=== PATIENT | male | born 1940 | race Caucasian/White ===

== ENCOUNTER → 2017-11-01 09:29 | Outpatient (CLI) | payer MEDICARE, OTHER, SELFPAY ==
[2017-11-01 11:50] LABS: Alanine Aminotransferase 50 U/L (12-78); Albumin Level 3.8 gm/dL (3.4-5.0); Albumin/Globulin Ratio 1.5 (1.1-1.8); Alkaline Phosphatase 69 U/L (46-116); Anion Gap 15.3 mEq/L (5-15); Aspartate Amino Transferase 40 U/L (15-37); Bilirubin,Total 0.8 mg/dL (0.2-1.0); Blood Urea Nitrogen 15 mg/dL (7-18); Calcium 9.1 mg/dL (8.5-10.1); Carbon Dioxide 25 mmol/L (21.0-32.0); Chloride 105 mmol/L (98-107); Cholesterol 192 mg/dL (140-200); Creatine Kinase 108 U/L (39-308); Creatinine,Serum 1.18 mg/dL (0.70-1.30); Estimated Glomerular Filt Rate 60 ml/min (>60); GFR (African American) 72 ML/MIN (>60); Globulin 2.6 gm/dl (1.3-3.2); Glucose 123 mg/dL (74-106); HDL Cholesterol 12 mg/dL (27-67); LDL Cholesterol 115 mg/dL (0-130); Potassium 4.3 mmoL/L (3.5-5.1); Prostate Specific Ag Screen 0.7 ng/mL (0.0-4.0); Sodium 141 mmol/L (136-145); Total Protein,Serum 6.4 gm/dL (6.4-8.2); Triglycerides 324 mg/dL (30-200); VLDL Cholesterol 65 mg/dL (0-40)
[2017-11-03 08:24] LABS: Vitamin D 25 Hydroxy 9.7 ng/mL (30.0-100.0)
== END ==
PROVIDERS: Visit Provider Family Medicine
DX: R53.83 Other fatigue (principal); I10 Essential (primary) hypertension; E78.5 Hyperlipidemia, unspecified; Z12.5 Encounter for screening for malignant neoplasm of prostate
CPT/HCPCS: 36415; 80053; 80061; 82550; 82652; 84443; G0103

== ENCOUNTER → 2018-07-04 11:24 | Outpatient (CLI) | payer MEDICARE, BC, SELFPAY ==
--- NOTE | 2018-07-04 11:37 | XR_ITS ---
XR chest 2V HISTORY: ITS.REASON: cough ORDERING PHYSICIAN: Jayce Ziegler MD PATIENT AGE: 78 years COMPARISON: PA and lateral chest 07/16/2013 FINDINGS: The cardiomediastinal silhouette and pulmonary vascularity are within normal limits. The lungs are clear without infiltrates, suspicious nodules, or pleural effusions considering a somewhat poor inspiration. No acute bony abnormalities. There are mild degenerative changes in both shoulders. Postsurgical screws are seen in both humeral heads. IMPRESSION: Nonacute chest findings
== END ==
PROVIDERS: PCP Family Medicine; Visit Provider Family Medicine
DX: R05 Cough (principal)
CPT/HCPCS: 71046

== ENCOUNTER → 2018-09-22 11:08 | Outpatient (POV) | payer MEDICARE, BC, SELFPAY ==
[2018-09-22 11:21] VITALS: BP 182/98; PULSE 70; RESP 18; O2SAT 98; BMI 32.5
--- NOTE | 2018-09-22 13:36 | HMH.PAINSOAP ---
[facility] Pain Management SOAP Note Subjective:: Patient is a pleasant 78-year-old white male who presents today for for follow-up after multiple peripheral nerve blocks. Patient has postherpetic neuralgia. Patient is not getting any relief from peripheral nerve blocks or medications he is tried and failed both Lyrica and gabapentin. Patient is asking what we can do moving forward he rates his pain a 9 out of 10. Patient and I discussed neuro stimulation. I believe it would be the most beneficial for him. Patient is not on any anticoagulation therapy. ROS General: no recent weight change, no fever, no sleep disturbances Respiratory: no cough, no shortness of air, no recurring pulmonary infections Cardiovascular/Peripheral Vascular: No chest pain, No palpitations, no edema, no shortness of breath. Gastrointestinal: no incontinence, normal bowel movements reported Genitourinary: no incontinence Musculoskeletal: Left chest wall pain around the T4-T5 dermatome level Psychiatric: normal mood/ affect, [denies depression], [denies anxiety] Neurological: [denies weakness in extremities], [denies balance issues] Objective:: Physical Exam General: Alert and oriented x3, no acute distress, pleasant and cooperative, [on room air] Lungs: Resps E/U, Symmetrical chest expansion, Eyes: PERRL Musculoskeletal: Flexion and extension of thoracic spine somewhat guarded secondary to pain, deep tendon reflexes normal, strength in upper and lower extremities [5/5], slightly antalgic gait noted, extreme tenderness left chest wall Neurological: speech clear, computer animator equal, no gross sensory deficits Assessment:: Postherpetic neuralgia Plan:: Will schedule him for a trial with a [place] neurostimulator to help with his postherpetic neuralgia pain. I believe it would be beneficial for him. Patient's tried and failed multiple modalities of treatment including peripheral nerve blocks and Lyrica and gabapentin. Patient is suffered with this pain for over 6 months. Patient has had no relief. It is beginning to affect his activities of daily living and functionality. Dr. Esquivel has reviewed this note and agrees with this plan of care. This note was dictated using voice recognition software and may contain errors or omissions
--- NOTE | 2018-09-22 13:41 | P.CONS_ITS ---
[facility] Pain Management SOAP Note Subjective:: Patient is a pleasant 78-year-old white male who presents today for for follow- up after multiple peripheral nerve blocks. Patient has postherpetic neuralgia. Patient is not getting any relief from peripheral nerve blocks or medications he is tried and failed both Lyrica and gabapentin. Patient is asking what we can do moving forward he rates his pain a 9 out of 10. Patient and I discussed neuro stimulation. I believe it would be the most beneficial for him. Patient is not on any anticoagulation therapy. ROS General: no recent weight change, no fever, no sleep disturbances Respiratory: no cough, no shortness of air, no recurring pulmonary infections Cardiovascular/Peripheral Vascular: No chest pain, No palpitations, no edema, no shortness of breath. Gastrointestinal: no incontinence, normal bowel movements reported Genitourinary: no incontinence Musculoskeletal: Left chest wall pain around the T4-T5 dermatome level Psychiatric: normal mood/ affect, [denies depression], [denies anxiety] Neurological: [denies weakness in extremities], [denies balance issues] Objective:: Physical Exam General: Alert and oriented x3, no acute distress, pleasant and cooperative, [on room air] Lungs: Resps E/U, Symmetrical chest expansion, Eyes: PERRL Musculoskeletal: Flexion and extension of thoracic spine somewhat guarded secondary to pain, deep tendon reflexes normal, strength in upper and lower extremities [5/5], slightly antalgic gait noted, extreme tenderness left chest wall Neurological: speech clear, head of marketing equal, no gross sensory deficits Assessment:: Postherpetic neuralgia Plan:: Will schedule him for a trial with a [place] neurostimulator to help with his postherpetic neuralgia pain. I believe it would be beneficial for him. Patient's tried and failed multiple modalities of treatment including peripheral nerve blocks and Lyrica and gabapentin. Patient is suffered with this pain for over 6 months. Patient has had no relief. It is beginning to affect his activities of daily living and functionality. Dr. Esquivel has reviewed this note and agrees with this plan of care. This note was dictated using voice recognition software and may contain errors or omissions
== END ==
PROVIDERS: PCP Family Medicine; Visit Provider Clinical Nurse Specialist Family Health
DX: B02.29 Other postherpetic nervous system involvement (principal)
CPT/HCPCS: 99212

== ENCOUNTER → 2018-12-10 15:30 | Outpatient (CLI) | payer MEDICARE, BC, SELFPAY ==
--- NOTE | 2018-12-10 | XR_ITS ---
XR chest 2V HISTORY: Cough ITS.REASON: A ORDERING PHYSICIAN: Rodney Stratton MD PATIENT AGE: 78 years COMPARISON: 07/04/2018 FINDINGS: Mild cardiomegaly without failure. There is mild prominence of the interstitium. No definite lobar consolidation or collapse is evident. Chronic changes are present in the mid lung on both sides somewhat similar to the previous exam considering the difference in technique. No acute bony findings. IMPRESSION: Chronic interstitial changes, no acute finding
[2018-12-10 17:46] LABS: Hemoglobin A1C 5.5 % (0.0-7.0)
[2018-12-10 17:53] LABS: Alanine Aminotransferase 41 U/L (12-78); Albumin Level 3.7 gm/dL (3.4-5.0); Albumin/Globulin Ratio 1.4 (1.1-1.8); Alkaline Phosphatase 56 U/L (46-116); Anion Gap 12.7 mEq/L (5-15); Aspartate Amino Transferase 36 U/L (15-37); Bilirubin,Total 0.7 mg/dL (0.2-1.0); Blood Urea Nitrogen 13 mg/dL (7-18); Calcium 9.3 mg/dL (8.5-10.1); Carbon Dioxide 26 mmol/L (21.0-32.0); Chloride 104 mmol/L (98-107); Cholesterol 180 mg/dL (140-200); Creatine Kinase 67 U/L (39-308); Creatinine,Serum 1.36 mg/dL (0.70-1.30); Estimated Glomerular Filt Rate 51 ml/min (>60); GFR (African American) 61 ML/MIN (>60); Globulin 2.7 gm/dl (1.3-3.2); Glucose 98 mg/dL (74-106); HDL Cholesterol 12 mg/dL (27-67); LDL Cholesterol 111 mg/dL (0-130); Potassium 4.7 mmoL/L (3.5-5.1); Prostate Specific Ag Screen 0.6 ng/mL (0.0-4.0); Sodium 138 mmol/L (136-145); Thyroid Stimulating Hormone 3.73 uIU/ml (0.358-3.740); Total Protein,Serum 6.4 gm/dL (6.4-8.2); Triglycerides 283 mg/dL (30-200); VLDL Cholesterol 57 mg/dL (0-40)
[2018-12-10 18:40] LABS: Basophils # 0.1 K/mm3 (0-0.2); Basophils % 1.3 % (0.1-2.0); Eosinophils # 0.1 K/mm3 (0.0-0.4); Eosinophils % 2.1 % (0.1-12.0); Hematocrit 46.2 % (42.0-52.0); Hemoglobin 15.3 g/dL (14.1-18.0); Lymphocytes # 1.7 K/mm3 (0.7-4.5); Mean Corpuscular HGB Conc 33.2 g/dL (31.8-35.4); Mean Corpuscular Hemoglobin 29.6 pg (27.0-31.2); Mean Platelet Volume 8.6 fl (7.4-10.4); Monocytes # 0.5 K/mm3 (0.1-1.0); Monocytes % 7.7 % (1.7-9.3); Neutrophils # 3.5 K/mm3 (1.8-7.8); Neutrophils % 59.8 % (37.0-80.0); Platelet Count 224 K/mm3 (142-424); Red Blood Count 5.19 M/mm3 (4.60-6.20); Red Cell Distribution Width 12.7 % (11.5-17.5); White Blood Count 5.8 K/mm3 (4.8-10.8)
[2018-12-12 18:12] LABS: Folate 4.6 ng/mL (>3.0); Vitamin B12 >2000 pg/mL (232-1245)
[2018-12-12 18:13] LABS: Vitamin D 25 Hydroxy 34.8 ng/mL (30.0-100.0)
== END ==
PROVIDERS: Visit Provider Family Medicine
DX: R53.83 Other fatigue (principal); E78.5 Hyperlipidemia, unspecified; E55.9 Vitamin D deficiency, unspecified; I10 Essential (primary) hypertension; Z13.1 Encounter for screening for diabetes mellitus; Z12.5 Encounter for screening for malignant neoplasm of prostate; Z79.899 Other long term (current) drug therapy
CPT/HCPCS: 36415; 71046; 80053; 80061; 82550; 82607; 82652; 82746; 83036; 84443; 85025; G0103

== ENCOUNTER → 2018-12-15 09:52 | Outpatient (POV) | payer MEDICARE, BC, SELFPAY ==
[2018-12-15 09:57] VITALS: BP 141/80; PULSE 65; RESP 18; O2SAT 98; BMI 32.3
--- NOTE | 2018-12-15 10:12 | HMH.PAINSOAP ---
[facility] Pain Management SOAP Note Subjective:: Patient is a pleasant 78-year-old white male who presents today for follow-up. The patient is being treated for postherpetic neuralgia. The patient has had multiple peripheral nerve blocks with limited relief. As a result, the patient had a [place] neurostimulator placement. Patient rates his pain a 5 out of 10 today. He says he does feel better, but is still having some pain around his left flank area. Overall, however, he says this is helped my pain a lot . Review of Systems General: No recent weight changes, no fever, no sleep disturbances Respiratory: No cough, no shortness of air, no recurring pulmonary infections Cardiovascular/peripheral vascular: No chest pain, no palpitations, no edema, no shortness of breath Gastrointestinal: No new onset incontinence, normal bowel movements reported Genitourinary: No new onset incontinence Musculoskeletal: Left flank pain Psychiatric: Normal mood/affect Neurological: [Denies weakness in extremities], [denies balance issues] Objective:: Physical exam General: Alert and oriented x3, no acute distress, pleasant and cooperative, [on room air] Lungs: Respirations even and unlabored, symmetrical chest expansion Eyes: PERRL Musculoskeletal: Left flank area somewhat guarded secondary to pain, deep tendon reflexes normal, strength in upper and lower extremities [5/5], [abnormal gait noted] Neurological: Speech clear, aircraft pneudraulic systems mechanic equal, no gross sensory deficit Assessment:: Postherpetic neuralgia Plan:: Overall, the patient is doing well today. [employer] order entry representative is here to reprogram the stimulator for him today. Incision is well approximated without infection. We will remove the sutures in 2 weeks. The patient has been instructed to call the office if he has any concerns prior to his next appointment. Dr. Esquivel has reviewed this note and agrees with this plan of care. This note was dictated using voice recognition software and make contain errors or omissions.
--- NOTE | 2018-12-15 10:16 | P.CONS_ITS ---
[facility] Pain Management SOAP Note Subjective:: Patient is a pleasant 78-year-old white male who presents today for follow-up. The patient is being treated for postherpetic neuralgia. The patient has had multiple peripheral nerve blocks with limited relief. As a result, the patient had a [place] neurostimulator placement. Patient rates his pain a 5 out of 10 today. He says he does feel better, but is still having some pain around his left flank area. Overall, however, he says this is helped my pain a lot . Review of Systems General: No recent weight changes, no fever, no sleep disturbances Respiratory: No cough, no shortness of air, no recurring pulmonary infections Cardiovascular/peripheral vascular: No chest pain, no palpitations, no edema, no shortness of breath Gastrointestinal: No new onset incontinence, normal bowel movements reported Genitourinary: No new onset incontinence Musculoskeletal: Left flank pain Psychiatric: Normal mood/affect Neurological: [Denies weakness in extremities], [denies balance issues] Objective:: Physical exam General: Alert and oriented x3, no acute distress, pleasant and cooperative, [on room air] Lungs: Respirations even and unlabored, symmetrical chest expansion Eyes: PERRL Musculoskeletal: Left flank area somewhat guarded secondary to pain, deep tendon reflexes normal, strength in upper and lower extremities [5/5], [abnormal gait noted] Neurological: Speech clear, director of enterprise architecture equal, no gross sensory deficit Assessment:: Postherpetic neuralgia Plan:: Overall, the patient is doing well today. [employer] cash applications representative is here to reprogram the stimulator for him today. Incision is well approximated without infection. We will remove the sutures in 2 weeks. The patient has been instructed to call the office if he has any concerns prior to his next appointment. Dr. Esquivel has reviewed this note and agrees with this plan of care. This note was dictated using voice recognition software and make contain errors or omissions.
== END ==
PROVIDERS: PCP Family Medicine; Visit Provider Clinical Nurse Specialist Family Health
DX: B02.29 Other postherpetic nervous system involvement (principal)
CPT/HCPCS: 99212

== ENCOUNTER → 2019-01-08 10:52 | Outpatient (POV) | payer MEDICARE, BC, SELFPAY ==
[2019-01-08 10:20] VITALS: BP 145/62; PULSE 96; RESP 20; O2SAT 97; BMI 30.7
--- NOTE | 2019-01-08 11:46 | HMH.PAINSOAP ---
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 He did go to the emergency room yesterday with loss of appetite, nausea and increasing pain in the lower lumbar area. He had a white count of 5 his chest x-ray was normal and his urine showed no signs of infection. He overall is doing well and most likely the nausea and loss of appetite is from postop antibiotics which he is currently taking. He is taking Bactrim DS 1 tablet twice a day. He is also taking these on an empty stomach. His pain in his lower lumbar area is somewhat better today. I believe this is just postoperative pain from surgical incisions. His wound VAC is in place. There is no signs of fluctuance or swelling or infection. There is also no signs of redness. His incisions are healing very nicely. His stimulation is helping tremendously. I believe he is doing much better. We will follow-up with him on Friday. Objective:: Alert and oriented x3 no acute distress. Incisions are healing very nicely there is no signs of redness or infection. Patient does have an antalgic gait. Motor strength of lower extremities is 5/5. There is no gross sensory deficit. He does have global weakness which is most likely due to his age and previous surgery. 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 Plan:: I told him to discontinue his Bactrim for postop antibiotics he has had 3 days of postop antibiotics which is sufficient. His incisions are healing very nicely. We will follow-up with him on Friday we will take the wound vacs off and reevaluate. If he has any problems or questions he is to call us in the pain clinic. Pain Management Hx Components *Have you ever received a pneumonia vaccine?: Yes *Have you received a flu vaccine this season?: No - *Social History *Occupational Status:: retired *Travel in the last 8 weeks: None
== END ==
PROVIDERS: PCP Family Medicine; Visit Provider Anesthesiology
DX: B02.29 Other postherpetic nervous system involvement; Z45.49 Encounter for adjustment and management of other implanted nervous system device
CPT/HCPCS: 99212

== ENCOUNTER → 2019-01-12 09:26 | Outpatient (POV) | payer MEDICARE, BC, SELFPAY ==
[2019-01-12 09:41] VITALS: BP 154/77; PULSE 80; RESP 18; O2SAT 99; BMI 30.6
--- NOTE | 2019-01-12 09:52 | HMH.PAINSOAP ---
[facility] Pain Management SOAP Note Subjective:: Patient is a pleasant 78-year-old white male who presents today for follow-up after neurostimulator placement. Patient overall doing extremely well. He rates his pain 8 out of 10 however it is mostly incisional pain he states that his postherpetic polyneuropathy has decreased significantly. Patient's stitches are in place he will comfort in 2 weeks to have been removed. No sign symptoms of infection. ROS General: no recent weight change, no fever, no sleep disturbances Respiratory: no cough, no shortness of air, no recurring pulmonary infections Cardiovascular/Peripheral Vascular: No chest pain, No palpitations, no edema, no shortness of breath. Gastrointestinal: no incontinence, normal bowel movements reported Genitourinary: no incontinence Musculoskeletal: Postherpetic neuralgia T4-T5 dermatomal level Psychiatric: normal mood/ affect Neurological: [denies weakness in extremities], [denies balance issues] Objective:: Physical Exam General: Alert and oriented x3, no acute distress, pleasant and cooperative, [on room air] Lungs: Resps E/U, Symmetrical chest expansion, Eyes: PERRL Musculoskeletal: Flexion and extension of thoracic spine somewhat guarded secondary to pain, deep tendon reflexes normal, strength in upper and lower extremities [5/5], normal gait noted Neurological: speech clear, forestry hunter equal, no gross sensory deficits Assessment:: 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 Overall patient is doing extremely well. He is been instructed to call the office if he has any issues prior to his next appointment. Dr. Esquivel has reviewed this note and agrees with this plan of care. This note was dictated using voice recognition software and may contain errors or omissions Pain Management Hx Components *Have you ever received a pneumonia vaccine?: Yes *Have you received a flu vaccine this season?: Yes - *Social History *Occupational Status:: other *Travel in the last 8 weeks: None
--- NOTE | 2019-01-12 09:55 | P.CONS_ITS ---
[facility] Pain Management SOAP Note Subjective:: Patient is a pleasant 78-year-old white male who presents today for follow-up after neurostimulator placement. Patient overall doing extremely well. He rates his pain 8 out of 10 however it is mostly incisional pain he states that his postherpetic polyneuropathy has decreased significantly. Patient's stitches are in place he will comfort in 2 weeks to have been removed. No sign symptoms of infection. ROS General: no recent weight change, no fever, no sleep disturbances Respiratory: no cough, no shortness of air, no recurring pulmonary infections Cardiovascular/Peripheral Vascular: No chest pain, No palpitations, no edema, no shortness of breath. Gastrointestinal: no incontinence, normal bowel movements reported Genitourinary: no incontinence Musculoskeletal: Postherpetic neuralgia T4-T5 dermatomal level Psychiatric: normal mood/ affect Neurological: [denies weakness in extremities], [denies balance issues] Objective:: Physical Exam General: Alert and oriented x3, no acute distress, pleasant and cooperative, [on room air] Lungs: Resps E/U, Symmetrical chest expansion, Eyes: PERRL Musculoskeletal: Flexion and extension of thoracic spine somewhat guarded secondary to pain, deep tendon reflexes normal, strength in upper and lower extremities [5/5], normal gait noted Neurological: speech clear, swimming pool attendant equal, no gross sensory deficits Assessment:: 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 Overall patient is doing extremely well. He is been instructed to call the office if he has any issues prior to his next appointment. Dr. Esquivel has reviewed this note and agrees with this plan of care. This note was dictated using voice recognition software and may contain errors or omissions Pain Management Hx Components *Have you ever received a pneumonia vaccine?: Yes *Have you received a flu vaccine this season?: Yes - *Social History *Occupational Status:: other *Travel in the last 8 weeks: None
== END ==
PROVIDERS: PCP Family Medicine; Visit Provider Clinical Nurse Specialist Family Health
DX: G58.8 Other specified mononeuropathies (principal); B02.23 Postherpetic polyneuropathy
CPT/HCPCS: 99212

== ENCOUNTER → 2019-01-26 08:34 | Outpatient (POV) | payer MEDICARE, BC, SELFPAY ==
[2019-01-26 09:04] VITALS: BP 156/87; PULSE 61; RESP 18; O2SAT 98; BMI 30.7
--- NOTE | 2019-01-26 09:12 | HMH.PAINSOAP ---
[facility] Pain Management SOAP Note Subjective:: Is a pleasant 78-year-old white male who presents today for follow-up and stitch removal after neurostimulator was placed for postherpetic neuralgia. He rates his pain today a 4 out of 10. He states it is much improved however he still having quite a bit of issue wearing a T-shirt. Patient overall is happy with his progress. Patient stitches were removed the incision was well approximated no sign symptoms of infection. Patient overall doing well. ROS General: no recent weight change, no fever, no sleep disturbances Respiratory: no cough, no shortness of air, no recurring pulmonary infections Cardiovascular/Peripheral Vascular: No chest pain, No palpitations, no edema, no shortness of breath. Gastrointestinal: no incontinence, normal bowel movements reported Genitourinary: no incontinence Musculoskeletal: Postherpetic neuralgia T4-T5 dermatomal level Psychiatric: normal mood/ affect, [denies depression], [denies anxiety] Neurological: [denies weakness in extremities], [denies balance issues] Objective:: Physical Exam General: Alert and oriented x3, no acute distress, pleasant and cooperative, [on room air] Lungs: Resps E/U, Symmetrical chest expansion, Eyes: PERRL Musculoskeletal: Flexion and extension of thoracic spine somewhat guarded secondary to pain, deep tendon reflexes normal, strength in upper and lower extremities [5/5], [abnormal gait noted] Neurological: speech clear, risk consulting treasury director equal, no gross sensory deficits Assessment:: 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 A national sales representative for [employer] will be contacted and he will have some reprogramming prior to his next appointment. Dr. Esquivel has reviewed this note and agrees with this plan of care. This note was dictated using voice recognition software and may contain errors or omissions Pain Management Hx Components *Have you ever received a pneumonia vaccine?: Yes *Have you received a flu vaccine this season?: Yes - *Social History *Occupational Status:: other *Travel in the last 8 weeks: None
--- NOTE | 2019-01-26 09:15 | P.CONS_ITS ---
[facility] Pain Management SOAP Note Subjective:: Is a pleasant 78-year-old white male who presents today for follow-up and stitch removal after neurostimulator was placed for postherpetic neuralgia. He rates his pain today a 4 out of 10. He states it is much improved however he still having quite a bit of issue wearing a T-shirt. Patient overall is happy with his progress. Patient stitches were removed the incision was well approximated no sign symptoms of infection. Patient overall doing well. ROS General: no recent weight change, no fever, no sleep disturbances Respiratory: no cough, no shortness of air, no recurring pulmonary infections Cardiovascular/Peripheral Vascular: No chest pain, No palpitations, no edema, no shortness of breath. Gastrointestinal: no incontinence, normal bowel movements reported Genitourinary: no incontinence Musculoskeletal: Postherpetic neuralgia T4-T5 dermatomal level Psychiatric: normal mood/ affect, [denies depression], [denies anxiety] Neurological: [denies weakness in extremities], [denies balance issues] Objective:: Physical Exam General: Alert and oriented x3, no acute distress, pleasant and cooperative, [on room air] Lungs: Resps E/U, Symmetrical chest expansion, Eyes: PERRL Musculoskeletal: Flexion and extension of thoracic spine somewhat guarded secondary to pain, deep tendon reflexes normal, strength in upper and lower extremities [5/5], [abnormal gait noted] Neurological: speech clear, wind commissioning technician equal, no gross sensory deficits Assessment:: 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 A product support sales representative for [employer] will be contacted and he will have some reprogramming prior to his next appointment. Dr. Esquivel has reviewed this note and agrees with this plan of care. This note was dictated using voice recognition software and may contain errors or omissions Pain Management Hx Components *Have you ever received a pneumonia vaccine?: Yes *Have you received a flu vaccine this season?: Yes - *Social History *Occupational Status:: other *Travel in the last 8 weeks: None
== END ==
PROVIDERS: PCP Family Medicine; Visit Provider Clinical Nurse Specialist Family Health
DX: B02.23 Postherpetic polyneuropathy
CPT/HCPCS: 99212; 99213

== ENCOUNTER → 2019-03-29 09:06 | Outpatient (POV) | payer MEDICARE, BC, SELFPAY ==
[2019-03-29 09:27] VITALS: BP 150/84; PULSE 64; RESP 18; O2SAT 98; BMI 30.6
--- NOTE | 2019-03-29 09:28 | HMH.PAINSOAP ---
[facility] Pain Management SOAP Note Subjective:: Patient is an extremely pleasant 79-year-old white male who presents today for follow-up. Patient has a neurostimulator for shingles pain. Patient states he is doing really well at 20 however he continue to increase it stating that he can go up to 35. I discussed with him overstimulation. We will decrease him to 15 for 2 days have him increase 1 level until he is comfortable again and I will see him in 1 week. He still having some soreness around his generator site. We will give him some diclofenac cream to see if this is beneficial for him we will reassess this in 1 week. He rates his pain today a 7 out of 10 ROS General: no recent weight change, no fever, no sleep disturbances Respiratory: no cough, no shortness of air, no recurring pulmonary infections Cardiovascular/Peripheral Vascular: No chest pain, No palpitations, no edema, no shortness of breath. Gastrointestinal: no new onset incontinence, normal bowel movements reported Genitourinary: no new onset incontinence Musculoskeletal: Postherpetic neuralgia T4-T5 dermatomal level Psychiatric: normal mood/ affect, Neurological: [denies new onset weakness in extremities], [denies new onset balance issues] Objective:: Physical Exam General: Alert and oriented x3, no acute distress, pleasant and cooperative, [on room air] Lungs: Resps E/U, Symmetrical chest expansion, Eyes: PERRL Musculoskeletal: Flexion and extension of thoracic spine somewhat guarded secondary to pain, deep tendon reflexes normal, strength in upper and lower extremities [5/5], antalgic gait noted Neurological: speech clear, sheet metal insulator 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 We will also give him some diclofenac cream for the site over his stimulator battery we will reassess this at his next visit in 1 week. He is been instructed to call the office if he has any issues prior to his next appointment. Dr. Esquivel has reviewed this note and agrees with this plan of care. This note was dictated using voice recognition software and may contain errors or omissions [facility] History I have reviewed the patient's past medical history: Yes Medical History: Reports:: Hyperlipidemia, Hypertension Denies:: Cancer, Diabetes Mellitus Type 1, Diabetes Mellitus Type 2, Internal Pacemaker, MRSA, Seizures *Have you ever received a pneumonia vaccine?: Yes *Have you received a flu vaccine this season?: Yes Other Medical History: Denies: Blood Transfusion Reaction Laterality Cases: Bilateral: Arthroscopy Shoulder, Other Other Surgeries: Yes: Hernia Repair (x3), Other (bilateral rotator cuff repair). No: Pacemaker Amputation: No Fractures: No - *Social History Smoking Status: Former smoker Tobacco Type: cigarettes # Packs/Day (cigarettes): 1 Alcohol Intake: former Substance Use Type: denies use *Occupational Status:: other Housing: house Household Members: spouse *Travel in the last 8 weeks: None Family Hx:: No significant family history
--- NOTE | 2019-03-29 09:31 | P.CONS_ITS ---
[facility] Pain Management SOAP Note Subjective:: Patient is an extremely pleasant 79-year-old white male who presents today for follow-up. Patient has a neurostimulator for shingles pain. Patient states he is doing really well at 20 however he continue to increase it stating that he can go up to 35. I discussed with him overstimulation. We will decrease him to 15 for 2 days have him increase 1 level until he is comfortable again and I will see him in 1 week. He still having some soreness around his generator site. We will give him some diclofenac cream to see if this is beneficial for him we will reassess this in 1 week. He rates his pain today a 7 out of 10 ROS General: no recent weight change, no fever, no sleep disturbances Respiratory: no cough, no shortness of air, no recurring pulmonary infections Cardiovascular/Peripheral Vascular: No chest pain, No palpitations, no edema, no shortness of breath. Gastrointestinal: no new onset incontinence, normal bowel movements reported Genitourinary: no new onset incontinence Musculoskeletal: Postherpetic neuralgia T4-T5 dermatomal level Psychiatric: normal mood/ affect, Neurological: [denies new onset weakness in extremities], [denies new onset balance issues] Objective:: Physical Exam General: Alert and oriented x3, no acute distress, pleasant and cooperative, [on room air] Lungs: Resps E/U, Symmetrical chest expansion, Eyes: PERRL Musculoskeletal: Flexion and extension of thoracic spine somewhat guarded secondary to pain, deep tendon reflexes normal, strength in upper and lower extremities [5/5], antalgic gait noted Neurological: speech clear, 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 We will also give him some diclofenac cream for the site over his stimulator battery we will reassess this at his next visit in 1 week. He is been instructed to call the office if he has any issues prior to his next appointment. Dr. Esquivel has reviewed this note and agrees with this plan of care. This note was dictated using voice recognition software and may contain errors or omissions [facility] History I have reviewed the patient's past medical history: Yes Medical History: Reports:: Hyperlipidemia, Hypertension Denies:: Cancer, Diabetes Mellitus Type 1, Diabetes Mellitus Type 2, Internal Pacemaker, MRSA, Seizures *Have you ever received a pneumonia vaccine?: Yes *Have you received a flu vaccine this season?: Yes Other Medical History: Denies: Blood Transfusion Reaction Laterality Cases: Bilateral: Arthroscopy Shoulder, Other Other Surgeries: Yes: Hernia Repair (x3), Other (bilateral rotator cuff repair). No: Pacemaker Amputation: No Fractures: No - *Social History Smoking Status: Former smoker Tobacco Type: cigarettes # Packs/Day (cigarettes): 1 Alcohol Intake: former Substance Use Type: denies use *Occupational Status:: other Housing: house Household Members: spouse *Travel in the last 8 weeks: None Family Hx:: No significant family history
== END ==
PROVIDERS: PCP Family Medicine; Visit Provider Clinical Nurse Specialist Family Health
DX: B02.23 Postherpetic polyneuropathy; B02.29 Other postherpetic nervous system involvement
CPT/HCPCS: 99212

== ENCOUNTER → 2019-04-05 12:57 | Outpatient (POV) | payer MEDICARE, BC, SELFPAY ==
[2019-04-05 13:19] VITALS: BP 135/77; PULSE 68; RESP 18; O2SAT 99; BMI 30.6
--- NOTE | 2019-04-05 13:26 | HMH.PAINSOAP ---
[facility] Pain Management SOAP Note Subjective:: Patient is a very pleasant 79-year-old white male who presents today for follow-up. Patient had a neurostimulator placed for postherpetic neuralgia. Patient was overstimulating himself so we decreased him which she states was beneficial. Patient probably needs up reprogramming at this time. Patient also has some pain around the battery site. Patient is using diclofenac cream which is beneficial. He rates his pain a 7 out of 10 today. Mostly on his left chest wall. ROS General: no recent weight change, no fever, no sleep disturbances Respiratory: no cough, no shortness of air, no recurring pulmonary infections Cardiovascular/Peripheral Vascular: No chest pain, No palpitations, no edema, no shortness of breath. Gastrointestinal: no new onset incontinence, normal bowel movements reported Genitourinary: no new onset incontinence Musculoskeletal: Left chest wall pain Psychiatric: normal mood/ affect Neurological: [denies new onset weakness in extremities], [denies new onset balance issues] Objective:: Physical Exam General: Alert and oriented x3, no acute distress, pleasant and cooperative, [on room air] Lungs: Resps E/U, Symmetrical chest expansion, Eyes: PERRL Musculoskeletal: Flexion and extension of thoracic spine somewhat guarded secondary to pain, deep tendon reflexes normal, strength in upper and lower extremities [5/5], antalgic gait noted Neurological: speech clear, 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 Dr. Esquivel has reviewed this note and agrees with this plan of care. This note was dictated using voice recognition software and may contain errors or omissions [facility] History I have reviewed the patient's past medical history: Yes Medical History: Reports:: Hyperlipidemia, Hypertension Denies:: Cancer, Diabetes Mellitus Type 1, Diabetes Mellitus Type 2, Internal Pacemaker, MRSA, Seizures *Have you ever received a pneumonia vaccine?: Yes *Have you received a flu vaccine this season?: Yes Other Medical History: Denies: Blood Transfusion Reaction Laterality Cases: Bilateral: Arthroscopy Shoulder, Other Other Surgeries: Yes: Hernia Repair (x3), Other (bilateral rotator cuff repair). No: Pacemaker Amputation: No Fractures: No - *Social History Smoking Status: Former smoker Tobacco Type: cigarettes # Packs/Day (cigarettes): 1 Alcohol Intake: former Substance Use Type: denies use *Occupational Status:: other Housing: house Household Members: spouse *Travel in the last 8 weeks: None Family Hx:: No significant family history
--- NOTE | 2019-04-05 13:29 | P.CONS_ITS ---
[facility] Pain Management SOAP Note Subjective:: Patient is a very pleasant 79-year-old white male who presents today for follow- up. Patient had a neurostimulator placed for postherpetic neuralgia. Patient was overstimulating himself so we decreased him which she states was beneficial. Patient probably needs up reprogramming at this time. Patient also has some pain around the battery site. Patient is using diclofenac cream which is beneficial. He rates his pain a 7 out of 10 today. Mostly on his left chest wall. ROS General: no recent weight change, no fever, no sleep disturbances Respiratory: no cough, no shortness of air, no recurring pulmonary infections Cardiovascular/Peripheral Vascular: No chest pain, No palpitations, no edema, no shortness of breath. Gastrointestinal: no new onset incontinence, normal bowel movements reported Genitourinary: no new onset incontinence Musculoskeletal: Left chest wall pain Psychiatric: normal mood/ affect Neurological: [denies new onset weakness in extremities], [denies new onset balance issues] Objective:: Physical Exam General: Alert and oriented x3, no acute distress, pleasant and cooperative, [on room air] Lungs: Resps E/U, Symmetrical chest expansion, Eyes: PERRL Musculoskeletal: Flexion and extension of thoracic spine somewhat guarded s econdary to pain, deep tendon reflexes normal, strength in upper and lower extremities [5/5], antalgic gait noted Neurological: speech clear, hat blocker equal, no gross sensory deficits Assessment:: Postherpetic neuralgia T4-T5 dermatomal level Plan:: We will have the patient reprogrammed by [facility] I will follow-up with him 1 month after this and reassess his symptoms at that time he is been instructed to call our office if he has any issues prior to his next appointment. Dr. Esquivel has reviewed this note and agrees with this plan of care. This note was dictated using voice recognition software and may contain errors or omissions [facility] History I have reviewed the patient's past medical history: Yes Medical History: Reports:: Hyperlipidemia, Hypertension Denies:: Cancer, Diabetes Mellitus Type 1, Diabetes Mellitus Type 2, Internal Pacemaker, MRSA, Seizures *Have you ever received a pneumonia vaccine?: Yes *Have you received a flu vaccine this season?: Yes Other Medical History: Denies: Blood Transfusion Reaction Laterality Cases: Bilateral: Arthroscopy Shoulder, Other Other Surgeries: Yes: Hernia Repair (x3), Other (bilateral rotator cuff repair). No: Pacemaker Amputation: No Fractures: No - *Social History Smoking Status: Former smoker Tobacco Type: cigarettes # Packs/Day (cigarettes): 1 Alcohol Intake: former Substance Use Type: denies use *Occupational Status:: other Housing: house Household Members: spouse *Travel in the last 8 weeks: None Family Hx:: No significant family history
== END ==
PROVIDERS: PCP Family Medicine; Visit Provider Clinical Nurse Specialist Family Health
DX: B02.29 Other postherpetic nervous system involvement
CPT/HCPCS: 99212

== ENCOUNTER → 2021-06-13 14:29 | Outpatient (CLI) | payer MEDICARE, BC, SELFPAY ==
[2021-06-13 15:21] LABS: Adenovirus,PCR Not Detected (NotDetected); Bordetella Pertussis Not Detected (NotDetected); Chlamydophila Pneumoniae, PCR Not Detected (NotDetected); Coronavirus 229E Not Detected (NotDetected); Coronavirus NL63 Not Detected (NotDetected); Coronavirus OC43 Not Detected (NotDetected); Coronovirus HKU1,PCR Not Detected (NotDetected); Human Metapneumovirus Not Detected (NotDetected); Influenza A, PCR Not Detected (NotDetected); Influenza AH1, 2009 Not Detected (NotDetected); Influenza AH1, PCR Not Detected (NotDetected); Influenza AH3,PCR Not Detected (NotDetected); Influenza B, PCR Not Detected (NotDetected); Mycoplasma Pneumoniae, PCR Not Detected (NotDetected); Parainfluenza 1, PCR Not Detected (NotDetected); Parainfluenza 2, PCR Not Detected (NotDetected); Parainfluenza 3, PCR Not Detected (NotDetected); Parainfluenza 4, PCR Not Detected (NotDetected); Respiratory Syncytial Virus Not Detected (NotDetected); Rhinovirus/Enterovirus Not Detected (NotDetected)
[2021-06-13 15:28] LABS: Basophils # 0.1 K/mm3 (0-0.2); Basophils % 1.8 % (0.1-2.0); Eosinophils # 0.1 K/mm3 (0.0-0.4); Eosinophils % 1.3 % (0.1-12.0); Hematocrit 50.2 % (42.0-52.0); Hemoglobin 16.5 g/dL (14.1-18.0); Lymphocytes # 1.3 K/mm3 (0.7-4.5); Lymphocytes % 19.7 % (10-50); Mean Corpuscular HGB Conc 32.8 g/dL (31.8-35.4); Mean Corpuscular Hemoglobin 32.2 pg (27.0-31.2); Mean Corpuscular Volume 98.1 fl (80-94); Mean Platelet Volume 8.7 fl (7.4-10.4); Monocytes # 0.6 K/mm3 (0.1-1.0); Monocytes % 8.9 % (1.7-9.3); Neutrophils # 4.4 K/mm3 (1.8-7.8); Neutrophils % 68.3 % (37.0-80.0); Platelet Count 218 K/mm3 (142-424); Red Blood Count 5.12 M/mm3 (4.60-6.20); Red Cell Distribution Width 13.4 % (11.5-17.5); White Blood Count 6.4 K/mm3 (4.8-10.8)
[2021-06-13 15:41] LABS: Strep Scrn Group A (Rapid) Negative (Negative)
[2021-06-13 18:51] LABS: Coronavirus 19, PCR Detected (NotDetected)
== END ==
PROVIDERS: PCP Family Medicine; Visit Provider Physician Assistant
DX: U07.1 COVID-19 (principal)
CPT/HCPCS: 36415; 85025; 87430; 87581; 87632; 87798; C9803; U0003; U0005

== ENCOUNTER → 2022-02-25 12:39 | Outpatient (CLI) | payer MEDICARE, BC, SELFPAY ==
[2022-02-25 14:40] LABS: Alanine Aminotransferase 39 U/L (12-78); Albumin Level 4.6 g/dl (3.5-5.0); Albumin/Globulin Ratio 1.8 (1.1-1.8); Alkaline Phosphatase 59 U/L (38-126); Anion Gap 18.7 mEq/L (5-15); Aspartate Amino Transferase 35 U/L (17-59); Blood Urea Nitrogen 20 mg/dl (9-20); Carbon Dioxide 27 mmol/L (22.0-30.0); Chloride 95 mmol/L (98-107); Chol/HDL Ratio 11.4 (1-3.5); Cholesterol 228 mg/dl (140-200); Estimated Glomerular Filt Rate 58 ml/min (>60); GFR (African American) 70 ML/MIN (>60); Globulin 2.5 g/dL (1.3-3.2); Glucose 113 mg/dl (74-100); HDL Cholesterol 20 mg/dl (40-60); Potassium 4.7 mmoL/L (3.5-5.1); Sodium 136 mmol/L (136-145); Total Protein,Serum 7.1 g/dl (6.3-8.2); Triglycerides 224 mg/dl (30-150); VLDL Cholesterol 45 mg/dL (0-40)
[2022-02-25 14:50] LABS: Direct LDL Cholesterol 194.61 mg/dL (100-129)
[2022-02-25 15:10] LABS: Thyroid Stimulating Hormone 3.01 uIU/mL (0.465-4.68)
== END ==
PROVIDERS: PCP Family Medicine; Visit Provider Family Medicine
DX: E03.9 Hypothyroidism, unspecified (principal); E78.5 Hyperlipidemia, unspecified
CPT/HCPCS: 36415; 80053; 80061; 84443

== ENCOUNTER 2023-01-28 13:50 | Emergency (ER) | payer MEDICARE, BC, SELFPAY ==
[2023-01-28] VITALS (9 sets, daily range): BP systolic 129–165; BP diastolic 59–76; PULSE 66–85; RESP 18–33; TEMP 36.7; O2SAT 93–98; BMI 30.4
--- NOTE | 2023-01-28 13:53 | ECG_ITS ---
APPROVED REPORT Exam: Resting ECG HR:81 bpm ECG Measurements Heart Rate 81 AXES LA 162 P 48 QRSd 94 QRS -25 QT 366 T 46 QTc 404 Conclusion SINUS RHYTHM BORDERLINE LEFT AXIS DEVIATION [QRS AXIS < -20] BORDERLINE ECG UNCONFIRMED REPORT Electronically signed by : Selvin Quinteros MD 01/28/2023 19:54:31
--- NOTE | 2023-01-28 14:42 | PC.NURSE ---
Dr. Cantu at BS
--- NOTE | 2023-01-28 14:45 | XR_ITS ---
FINAL REPORT CLINICAL HISTORY: dyspnea COMPARISON: 01/07/2019 FINDINGS: SINGLE-VIEW CHEST There is cardiomegaly. The mediastinum is normal. There are bibasilar opacities, may represent atelectasis or pneumonia. Spinal stimulator is present. There are postoperative changes in the left shoulder. There is no pneumothorax. IMPRESSION: Bibasilar atelectasis versus pneumonia. Reviewed, Interpreted and Dictated by Raymundo Gaines III, MD Transcribed by Viridiana Freeman Authenticated and [facility]
--- NOTE | 2023-01-28 14:46 | HMH.EDGENADL ---
Discharge Plan Disposition Patient Disposition: Home, Self-Care Condition: Good Prescriptions Prescriptions: No Action rabeprazole [AcipHex] 20 MG Tablet. 20 mg PO DAILY atorvastatin 10 MG Tablet 10 mg PO DAILY hydrocodone-acetaminophen [Needles] 1 EACH Tablet 1 ea PO DAILY PRN (Reason: pain) aspirin [Aspir-81] 81 MG Tablet.Dr 81 mg PO DAILY metoprolol succinate 25 MG Tab.Er.24h 25 mg PO DAILY metoclopramide HCl 10 MG Tablet 20 mg PO DAILY fenofibrate 40 MG Tablet 40 mg PO DAILY pregabalin [Lyrica] 75 MG Capsule 75 mg PO BID Referrals Follow up/Referrals: Rodney Stratton MD [Primary Care Provider] - See instructions Activity Restrictions/Add. Instructions Additional Instructions/Restrictions: follow up with primary doctor. Clinical Impressions Clinical Impression: Chest wall pain, Decrease in appetite, Generalized weakness Instructions Patient Instructions: DI for Atypical Chest Pain, DI for Poor Appetite Discharge ED Provider: Romulo Cantu General Adult HPI <Romulo Cantu MD - Last Filed: 01/28/23 14:49> General Chief complaint: Chest Pain Stated complaint: chest pain Time Seen by Provider: 01/28/23 14:17 Mode of Arrival: Wheelchair Source of Information: Patient and Medical Record Limitations: No Limitations Description of Symptoms (Recalled from ER Triage Doc. by RN): Pt c/o anterior chest pain that is tender to touch for about 4-5 days. States he has been feeling down , dizzy, nausea, and having SOA with exertion. States he fell down yesterday in his home after feeling weak. He fell on his hands & and knees. He denies any LOC or hitting his head from the fall. Denies any anticoaguant use. Denies any significant cardiac hx. History of Present Illness HPI narrative: Patient is an 83-year-old male very hard of hearing and history is limited secondary to that who gave a history of multiple complaints today. Tells me that he has had chest pain for multiple years since he had shingles on his chest wall but that is worsened over the last few days not a new rash. States it hurts to touch. Has been quite weak with some nausea according to family member he recently had a near syncopal episode yesterday where he fell to his knees. He denies any significant abdominal pain fevers or chills or any other symptoms. Related Data Home Medications Medication Instructions Recorded Confirmed aspirin 81 mg tablet,delayed 81 mg PO DAILY heart health 08/21/18 01/06/19 release (Aspir-) atorvastatin 10 mg tablet 10 mg PO DAILY Cholesterol 08/21/18 01/06/19 fenofibrate 40 mg tablet 40 mg PO DAILY Cholesterol 08/21/18 01/06/19 hydrocodone 5 mg-acetaminophen 325 1 ea PO DAILY PRN pain 08/21/18 01/06/19 mg tablet (Needles) metoclopramide HCl 10 mg tablet 20 mg PO DAILY stomach 08/21/18 01/06/19 metoprolol succinate 25 mg 25 mg PO DAILY heart 08/21/18 01/06/19 tablet,extended release 24 hr rabeprazole 20 mg tablet,delayed 20 mg PO DAILY GERD 08/21/18 01/06/19 release (AcipHex) pregabalin 75 mg capsule (Lyrica) 75 mg PO BID post herpatic 08/25/18 01/06/19 neuralgia Allergies Allergy/AdvReac Type Severity Reaction Status Date / Time citric acid Allergy Verified 01/06/19 08:26 [From [facility]] sodium bicarbonate Allergy Verified 01/06/19 08:26 [From [facility]] [facility] <Romulo Cantu MD - Last Filed: 01/28/23 14:49> [facility] Disclaimer: The information contained in this section may have been updated after the patient was seen, as this information can be updated by other users. Social History Smoking Status: Former smoker second hand exposure: No alcohol intake: former substance use type: denies use current occupational status: other Travel in the last 8 weeks: None household members: spouse housing: house current occupational exposures/hazards: No caffeine: Yes <Romulo Cantu MD - Last Filed:
[2023-01-28 14:56] LABS: Basophils % 0.4 % (0.1-2.0); Eosinophils # 0.2 K/mm3 (0.0-0.4); Eosinophils % 1.3 % (0.1-12.0); Hematocrit 48.3 % (42.0-52.0); Lymphocytes # 1.3 K/mm3 (0.7-4.5); Lymphocytes % 11.2 % (10-50); Mean Corpuscular HGB Conc 33.2 g/dL (31.8-35.4); Mean Corpuscular Hemoglobin 29.8 pg (27.0-31.2); Mean Corpuscular Volume 89.9 fl (80-94); Mean Platelet Volume 8.8 fl (7.4-10.4); Monocytes # 0.7 K/mm3 (0.1-1.0); Monocytes % 6.4 % (1.7-9.3); Neutrophils # 9.2 K/mm3 (1.8-7.8); Neutrophils % 80.8 % (37.0-80.0); Platelet Count 331 K/mm3 (142-424); Red Blood Count 5.37 M/mm3 (4.60-6.20); White Blood Count 11.3 K/mm3 (4.8-10.8)
[2023-01-28 15:01] LABS: Chloride 101 mmol/L (98-107)
[2023-01-28 15:02] LABS: Potassium 4.1 mmoL/L (3.5-5.1); Sodium 132 mmol/L (136-145)
[2023-01-28 15:04] LABS: Alanine Aminotransferase 50 U/L (12-78); Albumin Level 3.8 g/dl (3.5-5.0); Albumin/Globulin Ratio 1.2 (1.1-1.8); Alkaline Phosphatase 55 U/L (38-126); Anion Gap 14.1 mEq/L (5-15); Aspartate Amino Transferase 62 U/L (17-59); Bilirubin,Total 2.2 mg/dl (0.2-1.3); Blood Urea Nitrogen 11 mg/dl (9-20); Carbon Dioxide 21 mmol/L (22.0-30.0); Creatinine Clearance Estimated 63 mL/min (50-200); Estimated Glomerular Filt Rate 64 ml/min (>60); GFR (African American) 78 ML/MIN (>60); Globulin 3.1 g/dL (1.3-3.2); Total Protein,Serum 6.9 g/dl (6.3-8.2)
[2023-01-28 15:05] LABS: Calcium 9.9 mg/dl (8.4-10.2); Glucose 205 mg/dl (74-100); Magnesium 1.6 mg/dl (1.6-2.3); Phosphorous 2.7 mg/dl (2.5-4.5)
[2023-01-28 15:10] LABS: D-Dimer 0.96 ug/mL (0.0-0.5)
[2023-01-28 15:14] LABS: NT Pro Brain Natriuretic Pep. 339 pg/mL (0-450)
[2023-01-28 15:23] LABS: Troponin I < 0.01 ng/ml (0.00-0.034)
[2023-01-28 15:35] LABS: Thyroid Stimulating Hormone 1.24 uIU/mL (0.465-4.68)
--- NOTE | 2023-01-28 16:08 | PC.NURSE ---
Dr. Fong at BS
[2023-01-28 16:19] LABS: Microscopic, Urine URINE MICROSCOPIC (MICROSCOPIC)
[2023-01-28 16:33] LABS: Appearance,Urine CLEAR (Clear); Blood, Urine Negative (Negative); Color,Urine DARK YELLOW (Yellow); Glucose,Urine (UA) Negative (Negative); Ketones,Urine Negative (Negative); Leukocyte Esterase,Urine Negative (Negative); Nitrate,Urine Negative (Negative); Protein,Urine TRACE (Negative); Specific Gravity, Urine >= 1.030 (1.005-1.030)
[2023-01-28 16:37] LABS: Bilirubin,Urine 1+ (Negative)
[2023-01-28 16:54] LABS: Squamous Epithelial Cell,Urine Occasional #/hpf (0-5)
--- NOTE | 2023-01-28 17:08 | PC.NURSE ---
Rounded on patient. No needs at this time.
== END 2023-01-28 17:21 | disposition home or self-care (01) ==
PROVIDERS: Emergency Provider Student in an Organized Health Care Education/Training Program; PCP Family Medicine
DX: R07.9 Chest pain, unspecified (principal); R63.0 Anorexia; R53.1 Weakness; R55 Syncope and collapse; Z87.891 Personal history of nicotine dependence; W19.XXXA Unspecified fall, initial encounter
CPT/HCPCS: 71045; 80053; 81001; 83735; 83880; 84100; 84443; 84484; 85025; 85378; 93005; 96374; 99285

== ENCOUNTER 2023-05-16 11:08 | Inpatient (IN) | payer MEDICARE, BC, SELFPAY ==
[2023-05-16] VITALS (13 sets, daily range): BP systolic 134–183; BP diastolic 77–101; PULSE 70–81; RESP 20–21; TEMP 36.5–36.8; O2SAT 96–98; BMI 27.4; BMI 24.5
--- NOTE | 2023-05-16 11:29 | PC.NURSE ---
Dr. Cantu at BS for pt eval
--- NOTE | 2023-05-16 11:36 | CT_ITS ---
FINAL REPORT TECHNIQUE: After the administration of intravenous contrast, axial images were obtained through the abdomen and pelvis by computed tomography. The study was performed with techniques to keep radiation dose as low as reasonably achievable, (ALARA). Individual dose reduction techniques using automated exposure control or adjustment of mA and/or kV according to the patient's size were employed. CLINICAL HISTORY: fall, injury, also post prandial emesis x3wks FINDINGS: Abdomen: A right pleural effusion is present. The liver parenchyma is homogeneous. The gallbladder is absent. The spleen, pancreas, and adrenals appear unremarkable. There are several left renal cysts which have a benign appearance. There is ectasia in the abdominal aorta, which measures up to 3.2 cm in diameter. There is no free fluid or adenopathy. Pelvis: The appendix is not identified. The urinary bladder is unremarkable. There is no free fluid or adenopathy. Moderate diverticulosis of the sigmoid colon is identified. IMPRESSION: No acute intra-abdominal process. Abdominal aortic ectasia, up to 3.2 cm in diameter. Moderate diverticulosis of the sigmoid colon without acute inflammatory change. Reviewed, Interpreted and Dictated by Jerry Trotter MD Transcribed by Jie Gordon Authenticated and [facility]
--- NOTE | 2023-05-16 11:36 | CT_ITS ---
FINAL REPORT TECHNIQUE: Routine axial images were obtained from the lung apices to below the diaphragm following IV contrast administration. Individualized dose reduction techniques using automated exposure control or adjustment of the mA and/or kV according to the patient size were employed. CLINICAL HISTORY: fall,injury COMPARISON: None FINDINGS: CT CHEST WITH CONTRAST: There is a moderate-sized right pleural effusion. A few small scattered nonspecific mediastinal nodes are identified. There is mild fibrosis in the peripheries of the lungs bilaterally. There is streak artifact from a spinal stimulator. There is high density in a partially collapsed right lower lobe, that may be from remote prior lung disease or aspiration of contrast. IMPRESSION: Moderate sized right pleural effusion. High density in a partially collapsed right lower lobe, that may be from remote prior lung disease or aspiration of contrast. Reviewed, Interpreted and Dictated by Jerry Trotter MD Transcribed by Jie Gordon Authenticated and [facility]
--- NOTE | 2023-05-16 11:36 | CT_ITS ---
FINAL REPORT TECHNIQUE: multiple axial CT images were performed from the foramen magnum to the vertex without enhancement. CLINICAL HISTORY: fall; pain COMPARISON: None FINDINGS: The ventricles are enlarged. There is moderate diffuse atrophy. There is moderate periventricular white matter change likely related to small vessel disease. There is no evidence of hemorrhage. No masses are identified. No extra-axial fluid is seen. There is extensive mucoperiosteal thickening in the right maxillary, sphenoid, and ethmoid air cells. There is a large air-fluid level in the left maxillary sinus. There is obstruction in the ostiomeatal units bilaterally. IMPRESSION: Moderate atrophy and chronic changes. Extensive mucoperiosteal thickening in the right maxillary, sphenoid, and ethmoid air cells, with an air-fluid level present in the left maxillary sinus. Reviewed, Interpreted and Dictated by Jerry Trotter MD Transcribed by Jie Gordon Authenticated and [facility]
--- NOTE | 2023-05-16 11:36 | CT_ITS ---
FINAL REPORT TECHNIQUE: Axial images were obtained of the cervical spine by computed tomography. Coronal and sagittal reconstruction process performed. This study was performed with techniques to keep radiation doses as low as reasonably achievable (ALARA). Individualized dose reduction techniques using automated exposure control or adjustment of mA and/or kV according to the patient''s size were employed. CLINICAL HISTORY: fall, pain COMPARISON: None FINDINGS: Cervical vertebrae show normal height. There is advanced degenerative change at the C5-6 and C6-7 levels. Anterior osteophytes are present at the C4-5, C5-6, and C6-7 levels. There is asymmetric predominantly left multilevel facet osteoarthropathy. There is no malalignment. There is left neuroforaminal narrowing at the C3-4 level, and bilateral neural foraminal narrowing at the C6-7 levels. No acute bony abnormality is identified. No significant prevertebral soft tissue swelling is present. IMPRESSION: No acute abnormality. Degenerative change as described. Reviewed, Interpreted and Dictated by Jerry Trotter MD Transcribed by Jie Gordon Authenticated and [facility]
--- NOTE | 2023-05-16 11:39 | HMH.EDGENADL ---
Discharge Plan Disposition Patient Disposition: Admitted Chief Complaint: Weakness Prescriptions Prescriptions: No Action rabeprazole [AcipHex] 20 MG tablet,delayed release (DR/EC) 20 mg PO DAILY atorvastatin 10 MG tablet 10 mg PO DAILY hydrocodone-acetaminophen [[place]] 1 EACH tablet 1 ea PO DAILY PRN (Reason: pain) aspirin [Aspir-81] 81 MG tablet,delayed release (DR/EC) 81 mg PO DAILY metoprolol succinate 25 MG tablet extended release 24 hr 25 mg PO DAILY metoclopramide HCl 10 MG tablet 20 mg PO DAILY fenofibrate 40 MG tablet 40 mg PO DAILY pregabalin [Lyrica] 75 MG capsule 75 mg PO BID Referrals Follow up/Referrals: Provider,Referral, MD [Referring] - See instructions Clinical Impressions Clinical Impression: Generalized weakness, Falls, Postprandial vomiting, Acute hypokalemia Discharge ED Provider: Romulo Cantu General Adult HPI General Chief complaint: Weakness Stated complaint: Weakness Time Seen by Provider: 05/16/23 11:28 Mode of Arrival: EMS Source of Information: Patient Limitations: No Limitations Description of Symptoms (Recalled from ER Triage Doc. by RN): pt to ed via ems c/o generalized weakness, increased SOA with exertion over the last 2 days. granddaughter at the bedside states he has had a decrease in appetite. pt denies any pain. History of Present Illness HPI narrative: Patient is an 83-year-old male accompanied by granddaughters and history is obtained both from his granddaughters and the patient himself. His chief complaint is generalized weakness. His granddaughter states that he is so weak that he can barely stand. They state his baseline is that he is highly functional even drives including picking up one of their kids from school regularly and watching them. So this decline in functional status has been significant and dramatic over the last several days. He has fallen 3 different times they believe one-time pretty significant fall with hitting the ground very hard but he denies any pain associated with that. Additionally he states he has had 3 weeks of postprandial abdominal discomfort and nausea vomiting every single time that he eats. He currently denies any significant abdominal pain. He had a mild cough for the last several days but otherwise denies any other symptoms. Related Data Home Medications Medication Instructions Recorded Confirmed aspirin 81 mg tablet,delayed 81 mg PO DAILY [facility] 08/21/18 01/06/19 release (Aspir-) atorvastatin 10 mg tablet 10 mg PO DAILY Cholesterol 08/21/18 01/06/19 fenofibrate 40 mg tablet 40 mg PO DAILY Cholesterol 08/21/18 01/06/19 hydrocodone 5 mg-acetaminophen 325 1 ea PO DAILY PRN pain 08/21/18 01/06/19 mg tablet ([place]) metoclopramide HCl 10 mg tablet 20 mg PO DAILY stomach 08/21/18 01/06/19 metoprolol succinate 25 mg 25 mg PO DAILY heart 08/21/18 01/06/19 tablet,extended release 24 hr rabeprazole 20 mg tablet,delayed 20 mg PO DAILY GERD 08/21/18 01/06/19 release (AcipHex) pregabalin 75 mg capsule (Lyrica) 75 mg PO BID post herpatic 08/25/18 01/06/19 neuralgia Allergies Allergy/AdvReac Type Severity Reaction Status Date / Time citric acid Allergy Verified 01/06/19 08:26 [From Laurent] sodium bicarbonate Allergy Verified 01/06/19 08:26 [From Laurent] [facility] Disclaimer: The information contained in this section may have been updated after the patient was seen, as this information can be updated by other users. Social History Smoking Status: Never smoker second hand exposure: No alcohol intake: former substance use type: denies use current occupational status: other Travel in the last 8 weeks: None household members: spouse housing: house current occupational exposures/hazards: No caffeine: Yes ROS Obtained: Yes All systems reviewed & no additional complaints except as documented Physical Exam General General appearance: alert and in no apparent distress Head Head exam: atraumatic Neck Neck exam: Absent tenderness Chest Chest inspection: Present normal inspection and symmetric chest wall rise; Absent tenderness Respiratory Respiratory exam: Present normal lung sounds bilaterally; Absent respiratory distress Cardiovascular Cardiovascular exam: Present regular rate; Absent tachycardia Abdominal Exam Abdominal exam: Present soft; Absent distention or tenderness Neurological Exam Neurological exam: Present alert and oriented X3 (Nonfocal neurologic exam) Medical Decision Making Rohan Inquiry Pt receiving controlled substance: No Vital Signs: 05/16/23 11:18 05/16/23 11:30 05/16/23 12:00 Temperature 98.3 F Temperature Source Oral Pulse Rate 74 80 Pulse Rate [Left Radial] 75 Respiratory Rate 20 20 20 Blood Pressure 138/82 134/77 Blood Pressure [Right Arm] 141/82 H Blood Pressure Mean 105 96 Blood Pressure Mean [Right Arm] 101 02 Sat by Pulse Oximetry 98 97 96 Oxygen Delivery Method Room Air 05/16/23 12:30 05/16/23 13:03 05/16/23 13:30 Temperature Temperature Source Pulse Rate 70 76 75 Pulse Rate [Left Radial] Respiratory Rate Blood Pressure 146/80 H 176/82 H 146/100 H Blood Pressure [Right Arm] Blood Pressure Mean 91 100 115 Blood Pressure Mean [Right Arm] 02 Sat by Pulse Oximetry 97 98 96 Oxygen Delivery Method 05/16/23 14:00 Temperature Temperature Source Pulse Rate 78 Pulse Rate [Left Radial] Respiratory Rate Blood Pressure 169/94 H Blood Pressure [Right Arm] Blood Pressure Mean 119 Blood Pressure Mean [Right Arm] 02 Sat by Pulse Oximetry 98 Oxygen Delivery Method Lab Data Lab results reviewed: Yes I reviewed the patient's lab results. Lab Results 05/16/23 11:56: WBC 13.2 H, RBC 5.61, Hgb 16.1, Hct 46.5, MCV 83.0, MCH 28.7, MCHC 34.5, RDW 14.8, Plt Count 350, MPV 8.3, Neut % (Auto) 86.1 H, Lymph % (Auto) 8.6 L, [place] % (Auto) 4.5, Eos % (Auto) 0.5, Baso % (Auto) 0.2, Neut # (Auto) 11.3 H, Lymph # (Auto) 1.1, [place] # (Auto) 0.6, Eos # (Auto) 0.1, Baso # (Auto) 0.0, Total Counted 100, Neutrophils % (Manual) 86 H, Lymphocytes % (Manual) 10, Monocytes % (Manual) 4, Platelet Estimate Normal, RBC Morphology Normal, Sodium 132 L, Potassium 2.8 L*, Chloride 94 L, Carbon Dioxide 26, Anion Gap 14.8, BUN 12, Creatinine 0.90, Estimated Creat Clear 61, Estimated GFR 81, Est GFR ( Amer) 98, Glucose 108 H, Lactate 1.6, Calcium 9.5, Phosphorus 2.8, Magnesium 1.6, Total Bilirubin 1.2, AST 61 H, ALT 44, Alkaline Phosphatase 108, Troponin I < 0.01, Total Protein 6.9, Albumin 3.9, Globulin 3.0, Albumin/Globulin Ratio 1.3, TSH 3.25 05/16/23 12:09: SARS-CoV-2 (PCR) Not detected, Influenza A Untype (PCR) Not detected, Influenza Type B (PCR) Not detected 05/16/23 11:56 05/16/23 11:56 Orders (Tests/Meds): ED MEDICATIONS Generic Name Dose Route Start Last Admin Trade Name Freq PRN Reason Stop Dose Admin Potassium Chloride/Water 100 mls @ 100 mls/hr 05/16/23 12:45 05/16/23 13:41 Potassium Chloride 10meq/100ml Ivpb IV 05/16/23 15:44 100 mls/hr Q1H DEE DEE Administration Discontinued Medications Generic Name Dose Route Start Last Admin Trade Name Freq PRN Reason Stop Dose Admin Lactated Ringer's 500 mls @ 999 mls/hr 05/16/23 11:45 05/16/23 11:53 Lactated Ringer's 1000 Ml Bag IV 05/16/23 12:15 999 mls/hr .Q31M DEE DEE Administration Iopamidol 75 ml 05/16/23 13:03 05/16/23 13:04 Iopamidol-370 (76%);100ml Bottle IV 05/16/23 13:04 75 ml ONCE ONE Administration Ondansetron HCl 4 mg 05/16/23 11:36 05/16/23 11:54 Ondansetron 4mg/2ml Vial IV 05/16/23 11:37 4 mg ONCE ONE Administration Potassium Chloride 40 meq 05/16/23 12:45 05/16/23 13:46 Potassium Chloride 20meq Tab PO 05/16/23 12:46 40 meq ONCE ONE Administration Sodium Chloride 10 ml 05/16/23 13:03 05/16/23 13:04 Sodium Chloride 0.9% 10ml Syr (Rad Only) IV 05/16/23 13:04 10 ml ONCE ONE Administration ORDERS Category Date Time Status CT abdomen pelvis w con Stat Cat Scan 05/16/23 11:[address] cervical spine wo con Stat Cat Scan 05/16/23 11:[address] chest w con Stat Cat Scan 05/16/23 11:[address] head/brain wo con Stat Cat Scan 05/16/23 11:36 Completed CBC w/Auto Diff [Complete Blood Count Auto Diff] Stat Lab 05/16/23 11:56 Completed CMP [Comprehensive Metabolic Panel] Stat Lab 05/16/23 11:56 Completed Lactic Acid Stat Lab 05/16/23 11:56 Completed Magnesium Stat Lab 05/16/23 11:56 Completed Phosphorous Stat Lab 05/16/23 11:56 Completed Rapid PCR Covid and Flu A/B Stat Lab 05/16/23 12:09 Completed TSH [Thyroid Stimulating Hormone] Stat Lab 05/16/23 11:56 Completed Trop I [Troponin I] Stat Lab 05/16/23 11:56 Completed Troponin I Q3H Lab 05/16/23 14:45 Ordered Troponin I Q3H Lab 05/16/23 17:45 Ordered UA [Urinalysis and Microscopic] Stat Lab 05/16/23 11:37 Ordered Medical Decision Narrative: 83-year-old male presenting today with severe generalized weakness that has acutely worsened over the last several days. Differential includes intracranial pathology such as trauma malignancy, abdominal pathology such as gastric outlet obstruction malignancies or other surgical pathology which could have led to significant dehydration and electrolyte abnormalities renal insufficiency etc. Given the patient has respiratory abdominal complaints and is little bit confused also with recent falls we will get CT scan of the patient's head cervical spine chest abdomen pelvis in addition to metabolic and infectious workup. Reassessment 2:39 PM CTs returned without person interpreted showed no acute abnormality specifically from a traumatic standpoint. There is a small pleural effusion on the right side I reviewed the images with Dr. Bales given the atypical findings associate this no obvious pneumonia or consolidation appears to have some interstitial fibrosis component and a small pleural effusion. This does not appear be contributory to today's case. Specifically regarding his CT abdomen pelvis there is no gastric outlet obstruction or anything causing the postprandial emesis however his postprandial emesis the last several weeks is probably what led to his dehydration as hypokalemia which are being replaced. His overall functional status is the biggest reason to bring him into the emergency department given the fact that he cannot walk at the moment no stroke or any other intracranial abnormalities noted. I discussed the case with Dr. Marquez who is on-call for Dr. Stratton who agreed to admit the patient for further evaluation and treatment. Critical Care Critical Care Time Critical Care Time: No
--- NOTE | 2023-05-16 11:43 | ECG_ITS ---
APPROVED REPORT Exam: Resting ECG HR:74 bpm ECG Measurements Heart Rate 74 AXES PA 125 P 17 QRSd 98 QRS -27 QT 414 T 63 QTc 441 Conclusion SINUS RHYTHM WITH OCCASIONAL SUPRAVENTRICULAR PREMATURE COMPLEXES BORDERLINE LEFT AXIS DEVIATION [QRS AXIS < -20] MODERATE ST DEPRESSION [0.05+ mV ST DEPRESSION] ABNORMAL ECG UNCONFIRMED REPORT Electronically signed by : Selvin Quinteros MD 05/16/2023 17:58:57
[2023-05-16] MEDS: LACTATED RINGERS 1000ML 500 ML 999 ML IV (11:53)
[2023-05-16] MEDS: ONDANSETRON 4MG/2ML VIAL 4 MG IV (11:54)
[2023-05-16 12:14] LABS: Coronavirus 19, PCR Not Detected (NotDetected); Influenza A, PCR Not Detected (NotDetected); Influenza B, PCR Not Detected (NotDetected)
[2023-05-16 12:15] LABS: Basophils % 0.2 % (0.1-2.0); Eosinophils # 0.1 K/mm3 (0.0-0.4); Eosinophils % 0.5 % (0.1-12.0); Hematocrit 46.5 % (42.0-52.0); Hemoglobin 16.1 g/dL (14.1-18.0); Lymphocytes # 1.1 K/mm3 (0.7-4.5); Lymphocytes % 8.6 % (10-50); Mean Corpuscular HGB Conc 34.5 g/dL (31.8-35.4); Mean Corpuscular Hemoglobin 28.7 pg (27.0-31.2); Mean Platelet Volume 8.3 fl (7.4-10.4); Monocytes # 0.6 K/mm3 (0.1-1.0); Monocytes % 4.5 % (1.7-9.3); Neutrophils # 11.3 K/mm3 (1.8-7.8); Neutrophils % 86.1 % (37.0-80.0); Platelet Count 350 K/mm3 (142-424); Red Blood Count 5.61 M/mm3 (4.60-6.20); Red Cell Distribution Width 14.8 % (11.5-17.5); White Blood Count 13.2 K/mm3 (4.8-10.8)
[2023-05-16 12:18] LABS: MANUAL DIFFERENTIAL MANUAL DIFFERENTIAL (MANUAL DIFF)
[2023-05-16 12:26] LABS: Chloride 94 mmol/L (98-107)
[2023-05-16 12:27] LABS: Sodium 132 mmol/L (136-145)
[2023-05-16 12:29] LABS: Alanine Aminotransferase 44 U/L (12-78); Albumin Level 3.9 g/dl (3.5-5.0); Albumin/Globulin Ratio 1.3 (1.1-1.8); Alkaline Phosphatase 108 U/L (38-126); Anion Gap 14.8 mEq/L (5-15); Aspartate Amino Transferase 61 U/L (17-59); Bilirubin,Total 1.2 mg/dl (0.2-1.3); Blood Urea Nitrogen 12 mg/dl (9-20); Carbon Dioxide 26 mmol/L (22.0-30.0); Creatinine Clearance Estimated 61 mL/min (50-200); Estimated Glomerular Filt Rate 81 ml/min (>60); GFR (African American) 98 ML/MIN (>60); Phosphorous 2.8 mg/dl (2.5-4.5); Total Protein,Serum 6.9 g/dl (6.3-8.2)
[2023-05-16 12:30] LABS: Calcium 9.5 mg/dl (8.4-10.2); Glucose 108 mg/dl (74-100); Lactic Acid 1.6 mmol/L (0.7-2.1); Magnesium 1.6 mg/dl (1.6-2.3)
[2023-05-16 12:35] LABS: Potassium 2.8 mmoL/L (3.5-5.1)
[2023-05-16 12:49] LABS: Lymphocytes % 10 % (10-50); Monocytes % 4 % (2-9); Neutrophils % 86 % (42-76); Platelet Estimate Normal; RBC Morphology Normal; Total Cells Counted 100; Troponin I < 0.01 ng/ml (0.00-0.034)
[2023-05-16 12:59] LABS: Thyroid Stimulating Hormone 3.25 uIU/mL (0.465-4.68)
[2023-05-16] MEDS: IOPAMIDOL-370 (76%);100ML BOTTLE 75 ML IV (13:04)
[2023-05-16] MEDS: SODIUM CHLORIDE 0.9% 10ML SYR (RAD ONLY) 10 ML IV (13:04)
[2023-05-16] MEDS: KCl 10mEq/100ml 100 ML 100 MEQ IV ×3 (13:41→15:58)
[2023-05-16] MEDS: POTASSIUM CHLORIDE 20MEQ TAB 40 MEQ PO (13:46)
--- NOTE | 2023-05-16 14:07 | PC.NURSE ---
Dr Cantu spoke with Dr motley
--- NOTE | 2023-05-16 14:35 | PC.NURSE ---
Dr Cantu speaking to Dr Marquez
--- NOTE | 2023-05-16 14:39 | PC.NURSE ---
has accepted patient for admissio, dta order placed, and medical housekeeper notified.
--- NOTE | 2023-05-16 15:08 | HMH.PHAINT1 ---
Pharmacy Intervention Comments: MEDICATION RECONCILIATION COMPLETE USING LIST FROM MD OFFICE AND EXTERNAL PHARMACY FILL HISTORY.
[2023-05-16 15:20] LABS: Microscopic, Urine URINE MICROSCOPIC (MICROSCOPIC)
[2023-05-16 15:22] LABS: Appearance,Urine CLEAR (Clear); Bilirubin,Urine Negative (Negative); Blood, Urine Negative (Negative); Color,Urine YELLOW (Yellow); Glucose,Urine (UA) Negative (Negative); Ketones,Urine Negative (Negative); Leukocyte Esterase,Urine Negative (Negative); Nitrate,Urine Negative (Negative); PH,Urine 6.5 (5.0-8.5); Protein,Urine Negative (Negative); Specific Gravity, Urine <= 1.005 (1.005-1.030)
[2023-05-16 17:11] LABS: Troponin I < 0.01 ng/ml (0.00-0.034)
[2023-05-16] MEDS: Dex 5% in 0.45% NaCl 1,000 ML 150 ML IV ×2 (17:20→23:47)
--- NOTE | 2023-05-16 17:29 | P.HP_ITS ---
History of Present Illness *Admission Date: 05/16/23 *Reason for visit:: Weakness/falls *History of present illness: Mr. Chaparro is an 83 year old patient of [facility] who sees Dr. Stratton for his primary care. Patient was brought to the ER at [facility] earlier today with reports of weakness and frequent falls. He has had a lot of problem recently with frequent vomiting. Labs in the ER showed low potassium, CT scan showed no acute processes. This history is mainly obtained from conversation with the ER doctor and the medical record as patient does not have a good memory of why he is in the hospital. [facility] Disclaimer: The information contained in this section may have been updated after the patient was seen, as this information can be updated by other users. Medical History (Updated 05/16/23 @ 17:38 by Uriel Marquez MD) BPH (benign prostatic hyperplasia) Colon polyps Diverticulosis GERD (gastroesophageal reflux disease) H. pylori infection History of frequent headaches Hyperlipemia Hypertension Hypothyroidism Rotator cuff arthropathy of both shoulders Vitamin D deficiency Family History (Updated 05/16/23 @ 16:46 by Sammie Escobar RN) No significant family history Social History Smoking Status: Never smoker second hand exposure: No alcohol intake: former substance use type: denies use current occupational status: retired Travel in the last 8 weeks: None household members: spouse housing: house current occupational exposures/hazards: No caffeine: Yes Review of Systems Constitutional Constitutional: Denies chills and Denies fever(s) Eyes Eyes: Denies blurry vision ENT Ears, Nose, Mouth, and Throat: Denies bleeding gums and Denies dizziness *Cardiovascular Cardiovascular: Denies chest pain *Respiratory Respiratory: Denies cough *Gastrointestinal Gastrointestinal: Denies abdominal pain *Genitourinary Genitourinary: Denies difficulty urinating *Musculoskeletal Musculoskeletal: Denies arthralgias *Neurologic Neurologic: Denies dizziness Meds Home Medications and Allergies Home Medications Medication Instructions Recorded Confirmed Type metoclopramide HCl 10 mg tablet 10 mg PO BID stomach 08/21/18 05/16/23 History rabeprazole 20 mg tablet,delayed 20 mg PO DAILY Acid Reflux 08/21/18 05/16/23 History release (AcipHex) pregabalin 75 mg capsule (Lyrica) 75 mg PO BID post herpetic 08/25/18 05/16/23 History neuralgia atorvastatin 80 mg tablet 80 mg PO HS Cholesterol 05/16/23 05/16/23 History cholecalciferol (vitamin D3) 25 25 mcg PO DAILY Supplement 05/16/23 05/16/23 History mcg (1,000 unit) tablet (Vitamin D3) cyanocobalamin (vitamin B-12) 1,000 mcg PO DAILY Supplement 05/16/23 05/16/23 History 1,000 mcg tablet fenofibrate nanocrystallized 145 145 mg PO DAILY Cholesterol 05/16/23 05/16/23 History mg tablet fluticasone propionate 50 1 spray intranasal DAILY Allergy 05/16/23 05/16/23 His tory mcg/actuation nasal Symptoms spray,suspension levothyroxine 50 mcg tablet 50 mcg PO DAILYDM THYROID 05/16/23 05/16/23 History loratadine 10 mg tablet 10 mg PO DAILY Allergy Symptoms 05/16/23 05/16/23 History metoprolol succinate 50 mg 50 mg PO DAILY High Blood Pressure 05/16/23 05/16/23 History tablet,extended release 24 hr tamsulosin 0.4 mg capsule (Flomax) 0.4 mg PO HS PROSTATE 05/16/23 05/16/23 History valacyclovir 1 gram tablet 1,000 mg PO TID Infection 05/16/23 05/16/23 History (Valtrex) New Prescriptions to Start Prescriptions: Allergies Allergy/AdvReac Type Severity Reaction Status Date / Time citric acid Allergy Verified 05/16/23 16:52 [From [place]] sodium bicarbonate Allergy Verified 05/16/23 16:52 [From Laurent] Exam Data for Last 24 hours Vital signs and Labs for Last 24 Hours: Temp Pulse Resp BP Pulse Ox O2 Del Method 98.3 F 74 20 158/80 H 96 Room Air 05/16/23 16:33 05/16/23 16:33 05/16/23 16:33 05/16/23 16:33 05/16/23 15:31 05/16/23 17:08 Laboratory Results - last 24 hr 05/16/23 11:56: WBC 13.2 H, RBC 5.61, Hgb 16.1, Hct 46.5, MCV 83.0, MCH 28.7, MCHC 34.5, RDW 14.8, Plt Count 350, MPV 8.3, Neut % (Auto) 86.1 H, Lymph % (Auto) 8.6 L, [place] % (Auto) 4.5, Eos % (Auto) 0.5, Baso % (Auto) 0.2, Neut # (Auto) 11.3 H, Lymph # (Auto) 1.1, [place] # (Auto) 0.6, Eos # (Auto) 0.1, Baso # (Auto) 0.0, Total Counted 100, Neutrophils % (Manual) 86 H, Lymphocytes % (Manual) 10, Monocytes % (Manual) 4, Platelet Estimate Normal, RBC Morphology Normal, Sodium 132 L, Potassium 2.8 L*, Chloride 94 L, Carbon Dioxide 26, Anion Gap 14.8, BUN 12, Creatinine 0.90, Estimated Creat Clear 61, Estimated GFR 81, Est GFR ( Amer) 98, Glucose 108 H, Lactate 1.6, Calcium 9.5, Phosphorus 2.8, Magnesium 1.6, Total Bilirubin 1.2, AST 61 H, ALT 44, Alkaline Phosphatase 108, Troponin I < 0.01, Total Protein 6.9, Albumin 3.9, Globulin 3.0, Albumin/Globulin Ratio 1.3, TSH 3.25 05/16/23 12:09: SARS-CoV-2 (PCR) Not detected, Influenza A Untype (PCR) Not detected, Influenza Type B (PCR) Not detected 05/16/23 15:16: Urine Color Yellow, Urine Appearance Clear, Urine pH 6.5, Ur Specific [place] <= 1.005, Urine Protein Negative, Urine Glucose (UA) Negative, Urine Ketones Negative, Urine Blood Negative, Urine Nitrate Negative, Urine Bilirubin Negative, Urine Urobilinogen 1.0, Ur Leukocyte Esterase Negative, Urine RBC None, Urine WBC None, Ur Squamous Epith Cells None, Urine Bacteria None 05/16/23 16:40: Troponin I < 0.01 I & O for Last 24 hours: Intake & Output 05/13/23 05/14/23 05/15/23 05/16/23 23:59 23:59 23:59 23:59 Weight 170 lb Constitutional Constitutional: no acute distress Comments: Lying in bed with a baseball cap on, pleasant but confused *Routine HEENT Exam Head: Present normocephalic Eye: Present EOMI and PERRL ENT: Present mucous membranes moist *Routine Neck Exam Neck: Present supple; Absent lymphadenopathy *Routine Respiratory Exam Respiratory: Present CTA bilaterally *Routine Cardiovascular Exam Cardiovascular: Present RRR *Routine Abdominal Exam Abdominal: Present soft and normoactive bowel sounds; Absent tenderness *Routine Rectal Exam Rectal:: deferred *Routine Genitalia Exam Genitalia:: deferred *Routine Extremities Exam Extremities: Absent cyanosis, clubbing or edema *Routine Skin Exam Skin: Present warm; Absent rash *Routine Neurological Exam Neurological: Present alert and oriented X3 Assessment and Plan *Assessment and plan (1) Acute hypokalemia: Status: Acute Category: Medical Code(s): E87.6 - Hypokalemia (2) Postprandial vomiting: Status: Acute Category: Medical Code(s): R11.10 - Vomiting, unspecified (3) Falls: Status: Acute Qualifiers: Encounter type: initial encounter Qualified Code(s): W19.XXXA - Unspecified fall, initial encounter Category: Medical Code(s): W19.XXXA - Unspecified fall, initial encounter (4) Generalized weakness: Status: Acute Category: Medical Code(s): R53.1 - Weakness (5) Decrease in appetite: Status: Acute Category: Medical Code(s): R63.0 - Anorexia (6) Poor appetite: Status: Acute Category: Medical Code(s): R63.0 - Anorexia (7) Hypothyroidism: Status: Acute Qualifiers: Hypothyroidism type: unspecified Qualified Code(s): E03.9 - Hypothyroidism, unspecified Category: Medical Code(s): E03.9 - Hypothyroidism, unspecified (8) Hypertension: Status: Acute Qualifiers: Hypertension type: primary hypertension Qualified Code(s): I10 - Essential (primary) hypertension Category: Medical Code(s): I10 - Essential (primary) hypertension Plan Patient admitted for further management and evaluation. Potassium is being replaced. Plan PT and OT evaluation.
--- NOTE | 2023-05-16 17:31 | PC.NURSE ---
pt. states he wants to wait until later to change out of his clothes.
[2023-05-16] MEDS: METOPROLOL SUCCINATE XL 50MG TABLET 50 MG PO (18:11)
[2023-05-16 19:05] LABS: Troponin I < 0.01 ng/ml (0.00-0.034)
[2023-05-16] MEDS: TAMSULOSIN 0.4MG CAPSULE 0.400000000000000022 MG PO (21:39)
[2023-05-16] MEDS: ATORVASTATIN 40MG TABLET 80 MG PO (21:39)
[2023-05-17] MEDS: Dex 5% in 0.45% NaCl 1,000 ML 150 ML IV ×2 (03:19→06:28)
[2023-05-17 04:00] VITALS: BP 123/54; PULSE 69; RESP 20; TEMP 36.4; O2SAT 96; BMI 25.2
[2023-05-17] MEDS: LEVOTHYROXINE 50MCG (0.05MG) TAB 50 MCG PO (06:29)
[2023-05-17 07:32] LABS: Chloride 100 mmol/L (98-107); Sodium 132 mmol/L (136-145)
[2023-05-17 07:35] LABS: Anion Gap 7.7 mEq/L (5-15); Blood Urea Nitrogen 7 mg/dl (9-20); Carbon Dioxide 27 mmol/L (22.0-30.0); Creatinine Clearance Estimated 56 mL/min (50-200); Estimated Glomerular Filt Rate 92 ml/min (>60); GFR (African American) 112 ML/MIN (>60); Glucose 150 mg/dl (74-100)
[2023-05-17 07:39] LABS: Basophils % 0.3 % (0.1-2.0); Eosinophils # 0.1 K/mm3 (0.0-0.4); Eosinophils % 1.1 % (0.1-12.0); Hematocrit 40.3 % (42.0-52.0); Lymphocytes % 12.2 % (10-50); Mean Corpuscular Hemoglobin 28.6 pg (27.0-31.2); Mean Platelet Volume 8.2 fl (7.4-10.4); Monocytes # 0.5 K/mm3 (0.1-1.0); Monocytes % 5.6 % (1.7-9.3); Neutrophils # 6.6 K/mm3 (1.8-7.8); Neutrophils % 80.8 % (37.0-80.0); Platelet Count 221 K/mm3 (142-424); Red Cell Distribution Width 14.5 % (11.5-17.5); White Blood Count 8.1 K/mm3 (4.8-10.8)
[2023-05-17 07:50] LABS: Potassium 2.7 mmoL/L (3.5-5.1)
[2023-05-17 08:00] VITALS: BP 154/84; PULSE 75; RESP 20; TEMP 35.9; O2SAT 95; O2SAT 97
[2023-05-17] MEDS: METOPROLOL SUCCINATE XL 50MG TABLET 50 MG PO (08:09)
--- NOTE | 2023-05-17 08:12 | EXP.ACUTE.PN ---
Subjective *Date: 05/17/23 *Time: 08:12 Interval history: Patient with no new complaints today Medical Exam Vital signs and Labs for Last 24 Hours: Vital Signs Temp Pulse Pulse Resp BP BP Pulse Ox 05/17/23 07:39 05/17/23 01:00 05/17/23 04:00 97.6 F 69 20 123/54 L 96 05/16/23 20:00 97.7 F 75 20 163/90 H 97 05/16/23 17:00 98.2 F 76 21 183/83 H 96 05/16/23 17:31 97 05/16/23 17:08 05/16/23 17:00 05/16/23 16:33 98.3 F 74 20 158/80 H 05/16/23 15:31 76 20 163/86 H 96 05/16/23 14:30 81 20 177/101 H 98 05/16/23 14:00 78 169/94 H 98 05/16/23 13:30 75 146/100 H 96 05/16/23 13:03 76 176/82 H 98 05/16/23 12:30 70 146/80 H 97 05/16/23 12:00 80 20 134/77 96 05/16/23 11:30 74 20 138/82 97 05/16/23 11:18 98.3 F 75 20 141/82 H 98 O2 Del Method 05/17/23 07:39 Room Air 05/17/23 01:00 Room Air 05/17/23 04:00 Room Air 05/16/23 20:00 Room Air 05/16/23 17:00 Room Air 05/16/23 17:31 Room Air 05/16/23 17:08 Room Air 05/16/23 17:00 Room Air 05/16/23 16:33 Room Air 05/16/23 15:31 05/16/23 14:30 05/16/23 14:00 05/16/23 13:30 05/16/23 13:03 05/16/23 12:30 05/16/23 12:00 05/16/23 11:30 05/16/23 11:18 Room Air Intake and Output 05/16/23 05/17/23 05/17/23 23:59 07:59 15:59 Intake Total 470 / 470 Output Total 0 / 0 0 / 0 Balance 0 / 0 470 / 470 Intake: Intake, Oral Amount 470 / 470 Output: Output, Urine Amount 0 / 0 0 / 0 Other: Number of Voids 0 Number of Unmeasured Voids 2 1 Weight 152 lb 2 oz 157 lb 1.6 oz Patient Weight 05/17/23 23:59 Weight 157 lb 1.6 oz Laboratory Results - last 24 hr 05/16/23 11:56: WBC 13.2 H, RBC 5.61, Hgb 16.1, Hct 46.5, MCV 83.0, MCH 28.7, MCHC 34.5, RDW 14.8, Plt Count 350, MPV 8.3, Neut % (Auto) 86.1 H, Lymph % (Auto) 8.6 L, [place] % (Auto) 4.5, Eos % (Auto) 0.5, Baso % (Auto) 0.2, Neut # (Auto) 11.3 H, Lymph # (Auto) 1.1, [place] # (Auto) 0.6, Eos # (Auto) 0.1, Baso # (Auto) 0.0, Total Counted 100, Neutrophils % (Manual) 86 H, Lymphocytes % (Manual) 10, Monocytes % (Manual) 4, Platelet Estimate Normal, RBC Morphology Normal, Sodium 132 L, Potassium 2.8 L*, Chloride 94 L, Carbon Dioxide 26, Anion Gap 14.8, BUN 12, Creatinine 0.90, Estimated Creat Clear 61, Estimated GFR 81, Est GFR ( Amer) 98, Glucose 108 H, Lactate 1.6, Calcium 9.5, Phosphorus 2.8, Magnesium 1.6, Total Bilirubin 1.2, AST 61 H, ALT 44, Alkaline Phosphatase 108, Troponin I < 0.01, Total Protein 6.9, Albumin 3.9, Globulin 3.0, Albumin/Globulin Ratio 1.3, TSH 3.25 05/16/23 12:09: SARS-CoV-2 (PCR) Not detected, Influenza A Untype (PCR) Not detected, Influenza Type B (PCR) Not detected 05/16/23 15:16: Urine Color Yellow, Urine Appearance Clear, Urine pH 6.5, Ur Specific [place] <= 1.005, Urine Protein Negative, Urine Glucose (UA) Negative, Urine Ketones Negative, Urine Blood Negative, Urine Nitrate Negative, Urine Bilirubin Negative, Urine Urobilinogen 1.0, Ur Leukocyte Esterase Negative, Urine RBC None, Urine WBC None, Ur Squamous Epith Cells None, Urine Bacteria None 05/16/23 16:40: Troponin I < 0.01 05/16/23 18:25: Troponin I < 0.01 05/17/23 06:35: WBC 8.1 D, RBC 4.80, Hct 40.3 L, MCV 84.0, MCH 28.6, MCHC 34.0, RDW 14.5, Plt Count 221 D, MPV 8.2, Neut % (Auto) 80.8 H, Lymph % (Auto) 12.2, [place] % (Auto) 5.6, Eos % (Auto) 1.1, Baso % (Auto) 0.3, Neut # (Auto) 6.6, Lymph # (Auto) 1.0, [place] # (Auto) 0.5, Eos # (Auto) 0.1, Baso # (Auto) 0.0, Sodium 132 L, Potassium 2.7 L*, Chloride 100, Carbon Dioxide 27, Anion Gap 7.7, BUN 7 L D, Creatinine 0.80, Estimated Creat Clear 56, Estimated GFR 92, Est GFR ( Amer) 112, Glucose 150 H D, Calcium 8.0 L I & O for Labs for Last 24 Hours: Intake & Output 05/14/23 05/15/23 05/16/23 05/17/23 23:59 23:59 23:59 23:59 Intake Total 470 / 470 Output Total 0 / 0 0 / 0 Balance 0 / 0 470 / 470 Weight 152 lb 2 oz 157 lb 1.6 oz Constitutional: Present no acute distress Respiratory: Present normal respiratory effort Cardiac: Present Reg Rate and Rhythm GI: Present normal bowel sounds; Absent tenderness Extremities: Present normal inspection and full ROM Skin: Present intact; Absent erythema Neuro: Present Grossly Intact and moves all extremities Assessment and Plan *Assessment and plan (1) Acute hypokalemia: Status: Acute Category: Medical Code(s): E87.6 - Hypokalemia (2) Postprandial vomiting: Status: Acute Category: Medical Code(s): R11.10 - Vomiting, unspecified (3) Falls: Status: Acute Qualifiers: Encounter type: initial encounter Qualified Code(s): W19.XXXA - Unspecified fall, initial encounter Category: Medical Code(s): W19.XXXA - Unspecified fall, initial encounter (4) Generalized weakness: Status: Acute Category: Medical Code(s): R53.1 - Weakness (5) Decrease in appetite: Status: Acute Category: Medical Code(s): R63.0 - Anorexia (6) Poor appetite: Status: Acute Category: Medical Code(s): R63.0 - Anorexia (7) Hypothyroidism: Status: Acute Qualifiers: Hypothyroidism type: unspecified Qualified Code(s): E03.9 - Hypothyroidism, unspecified Category: Medical Code(s): E03.9 - Hypothyroidism, unspecified (8) Hypertension: Status: Acute Qualifiers: Hypertension type: primary hypertension Qualified Code(s): I10 - Essential (primary) hypertension Category: Medical Code(s): I10 - Essential (primary) hypertension Plan Potassium is lower today, will replace it now, awaiting PT eval.
[2023-05-17 08:34] LABS: Hemoglobin 13.8 g/dL (14.1-18.0)
[2023-05-17] MEDS: D5W/0.45% NaCl w/40mEq KCl 1,000 ML 100 ML IV ×2 (08:43→17:28)
[2023-05-17] MEDS: POTASSIUM CHLORIDE 20MEQ TAB 20 MEQ PO ×3 (08:44→20:58)
--- NOTE | 2023-05-17 14:04 | HMH.PTEV ---
Physical Therapy Evaluation Rehab PT IP Evaluation Start: 05/16/23 17:39 Freq: ONCE Status: Active Protocol: Document 05/17/23 13:54 HWADE (Rec: 05/17/23 14:03 HWADE [id number]) Subjective/History History History Pt is a 83 year old male that presented to [facility] ED on with reports of weakness and frequent falls. Pt was admitted for medical management of hypokalemia and further evaluation. PMH: BPH (benign prostatic hyperplasia) Colon polyps Diverticulosis GERD (gastroesophageal reflux disease) H. pylori infection History of frequent headaches Hyperlipemia Hypertension Hypothyroidism Rotator cuff arthropathy of both shoulders Vitamin D deficiency Subjective Subjective Pt presents supine in bed, pleasant and agreeable to PT initial evaluation. Pt denies reports of pain at rest. Pt AO to name, birthday and place, pt disoriented to date. Pt was reoriented during eval. Per pt report, prior to hospital admission to was independent with most B/IADL's including driving and ambulating without the use of AD. Pt reports that he has assistance from [employer]. Pt performed supine to sit on EOB with min A to assist trunk to upright position. Pt performed sit to stand transfer from sit on EOB and toilet with CGA and for management of IV pole. Pt ambulated x25' without AD and CGA for safety, demonstrates impulsivity during mobility. Following evaluation, pt left supine in bed with bed alarm active, call light and all needs within reach. New diagnosis of cancer in past 12 No months? Rehab PT IP Eval Objective Appearance Patient Behavior Appropriate,Cooperative Patient Orientation Person,Place,Birthday Difficulty following instructions mild Speech Pattern Clear,Appropriate Ambulation Patient Able to Ambulate Yes Ambulation Observation IP General Gait Pattern Observation Narrow Based Gait Ambulation Distance (feet) 25 Ambulation Assistive Device None Ambulation Ability Contact Guard/Hand Hold Balance Ability to Arise Able, uses arms to help Sitting Balance Steady, safe Standing Balance Steady, wide stance Dynamic Sitting Balance Ability Good Dynamic Standing Balance Ability Fair Transfers Bed Transfer Ability Minimal x 1 (25% assist) Sit to Stand Bed Transfer Ability Contact Guard/Hand Hold ROM All Extremities PT ROM Status WFL MMT RLE PT MMT ABN Abnormal MMT Grade RLE MMT grossly 4-/5 LLE PT MMT ABN Abnormal MMT Grade LLE MMT grossly 4-/5 Rehab PT IP prob,goals,plan Problems Date of Evaluation: 05/17/23 PT IP Problems Bed Mobility,Transfers,Gait, Balance,Self care,Safety Rehab Potential Rehab Potential Good Equipment Needs Assistive Devices None / NA Plan PT Intervention Plan Bed Mobility,Transfers,Gait, Balance,Self care,Safety, Therapeutic Exercise PT Plan Frequency Daily Duration LOS Discharge Goals Bed Transfer Ability Independent Sit to Stand Chair Transfer Ability Independent Ambulation Assistive Device None Ambulation Distance (feet) 100 Discharge Plan PT Discharge Plan Once medically stable, pt is most appropriate to d/c home with 24hr supervision and HHPT to address remaining impairments. If that level of assistance is not avaliable, recommend pt to d/c to SNF due to safety concerns with functional mobility. Recommend skilled PT intervention during hospital admission to reduce risk of falls, prevent functional decline, improve functional mobility and allow pt to return to [facility]. Eval Complexity Eval Charge Codes 03861 - Moderate Complexity PHYSICIAN CERTIFICATION: I certify the specified therapy services for Garfield Chaparro are required, authorized, and reviewed every 30 days.
[2023-05-17 15:36] VITALS: BP 148/90; PULSE 66; RESP 18; TEMP 36.6; O2SAT 97
[2023-05-17 20:00] VITALS: BP 126/76; PULSE 74; RESP 17; TEMP 36.6; O2SAT 98
[2023-05-17] MEDS: TAMSULOSIN 0.4MG CAPSULE 0.400000000000000022 MG PO (20:58)
[2023-05-17] MEDS: ATORVASTATIN 40MG TABLET 80 MG PO (20:59)
[2023-05-18] MEDS: D5W/0.45% NaCl w/40mEq KCl 1,000 ML 100 ML IV (03:56)
[2023-05-18 04:00] VITALS: BP 148/92; PULSE 68; RESP 16; TEMP 36.8; O2SAT 94; BMI 25.4
[2023-05-18] MEDS: LEVOTHYROXINE 50MCG (0.05MG) TAB 50 MCG PO (06:50)
[2023-05-18 07:27] LABS: Basophils % 0.3 % (0.1-2.0); Eosinophils # 0.1 K/mm3 (0.0-0.4); Hematocrit 42.4 % (42.0-52.0); Hemoglobin 14.5 g/dL (14.1-18.0); Lymphocytes # 1.1 K/mm3 (0.7-4.5); Lymphocytes % 10.5 % (10-50); Mean Corpuscular HGB Conc 34.1 g/dL (31.8-35.4); Mean Corpuscular Hemoglobin 28.8 pg (27.0-31.2); Mean Corpuscular Volume 84.3 fl (80-94); Mean Platelet Volume 8.5 fl (7.4-10.4); Monocytes # 0.6 K/mm3 (0.1-1.0); Monocytes % 5.7 % (1.7-9.3); Neutrophils # 8.3 K/mm3 (1.8-7.8); Neutrophils % 82.6 % (37.0-80.0); Platelet Count 255 K/mm3 (142-424); Red Blood Count 5.03 M/mm3 (4.60-6.20); Red Cell Distribution Width 14.8 % (11.5-17.5); White Blood Count 10.1 K/mm3 (4.8-10.8)
[2023-05-18 07:41] LABS: Anion Gap 7.5 mEq/L (5-15); Blood Urea Nitrogen 4 mg/dl (9-20); Calcium 8.2 mg/dl (8.4-10.2); Carbon Dioxide 22 mmol/L (22.0-30.0); Chloride 103 mmol/L (98-107); Creatinine Clearance Estimated 57 mL/min (50-200); Estimated Glomerular Filt Rate 129 ml/min (>60); GFR (African American) 156 ML/MIN (>60); Glucose 132 mg/dl (74-100); Potassium 3.5 mmoL/L (3.5-5.1); Sodium 129 mmol/L (136-145)
--- NOTE | 2023-05-18 07:44 | EXP.ACUTE.PN ---
Subjective *Date: 05/18/23 *Time: 07:44 Interval history: Patient with no new complaints, still pleasant and confused. Medical Exam Vital signs and Labs for Last 24 Hours: Vital Signs Temp Pulse Resp BP Pulse Ox O2 Del Method 05/18/23 04:00 98.2 F 68 16 148/92 H 94 L 05/18/23 01:00 Room Air 05/17/23 21:00 Room Air 05/17/23 20:00 98 F 74 17 126/76 98 05/17/23 17:37 Room Air 05/17/23 15:36 97.9 F 66 18 148/90 H 97 Room Air 05/17/23 15:30 Room Air 05/17/23 13:33 Room Air 05/17/23 13:00 Room Air 05/17/23 10:11 Room Air 05/17/23 08:00 96.6 F L 75 20 154/84 H 97 Room Air 05/17/23 08:00 95 Room Air Intake and Output 05/17/23 05/17/23 05/18/23 15:59 23:59 07:59 Intake Total 830 / 2530 960 / 2530 740 / 740 Output Total 0 / 0 0 / 0 0 / 0 Balance 830 / 2530 960 / 2530 740 / 740 Intake: Intake, Oral Amount 830 / 1130 60 / 1130 240 / 240 Intake, Total IV Amount 900 / 1400 500 / 500 D5W/0.45% NaCl w/40mEq KCl 1, 900 / 1400 500 / 500 000 ml @ 100 mls/hr IV .Q10H [facility] Rx#:[id number] Output: Output, Urine Amount 0 / 0 0 / 0 0 / 0 Other: Number of Voids 2 Number of Unmeasured Voids 1 1 1 Number of Bowel Movements 1 1 3 Weight 158 lb Patient Weight 05/18/23 23:59 Weight 158 lb Laboratory Results - last 24 hr 05/17/23 06:35: WBC 8.1 D, RBC 4.80, Hgb 13.8 L D, Hct 40.3 L, MCV 84.0, MCH 28.6, MCHC 34.0, RDW 14.5, Plt Count 221 D, MPV 8.2, Neut % (Auto) 80.8 H, Lymph % (Auto) 12.2, [place] % (Auto) 5.6, Eos % (Auto) 1.1, Baso % (Auto) 0.3, Neut # (Auto) 6.6, Lymph # (Auto) 1.0, [place] # (Auto) 0.5, Eos # (Auto) 0.1, Baso # (Auto) 0.0, Sodium 132 L, Potassium 2.7 L*, Chloride 100, Carbon Dioxide 27, Anion Gap 7.7, BUN 7 L D, Creatinine 0.80, Estimated Creat Clear 56, Estimated GFR 92, Est GFR ( Amer) 112, Glucose 150 H D, Calcium 8.0 L 05/18/23 06:45: WBC 10.1, RBC 5.03, Hgb 14.5, Hct 42.4, MCV 84.3, MCH 28.8, MCHC 34.1, RDW 14.8, Plt Count 255, MPV 8.5, Neut % (Auto) 82.6 H, Lymph % (Auto) 10.5, [place] % (Auto) 5.7, Eos % (Auto) 1.0, Baso % (Auto) 0.3, Neut # (Auto) 8.3 H, Lymph # (Auto) 1.1, [place] # (Auto) 0.6, Eos # (Auto) 0.1, Baso # (Auto) 0.0, Sodium 129 L, Potassium 3.5 D, Chloride 103, Carbon Dioxide 22, Anion Gap 7.5, BUN 4 L D, Creatinine 0.60 L D, Estimated Creat Clear 57, Estimated GFR 129, Est GFR ( Amer) 156 D, Glucose 132 H, Calcium 8.2 L I & O for Labs for Last 24 Hours: Intake & Output 05/15/23 05/16/23 05/17/23 05/18/23 23:59 23:59 23:59 23:59 Intake Total 1790 / 2530 740 / 740 Output Total 0 / 0 0 / 0 0 / 0 Balance 0 / 0 1790 / 2530 740 / 740 Weight 152 lb 2 oz 157 lb 1.6 oz 158 lb Constitutional: Present no acute distress Respiratory: Present normal respiratory effort Cardiac: Present Reg Rate and Rhythm GI: Present normal bowel sounds; Absent tenderness Extremities: Present normal inspection and full ROM Skin: Present intact; Absent erythema Neuro: Present Grossly Intact and moves all extremities Assessment and Plan *Assessment and plan (1) Acute hypokalemia: Status: Acute Category: Medical Code(s): E87.6 - Hypokalemia (2) Postprandial vomiting: Status: Acute Category: Medical Code(s): R11.10 - Vomiting, unspecified (3) Falls: Status: Acute Qualifiers: Encounter type: initial encounter Qualified Code(s): W19.XXXA - Unspecified fall, initial encounter Category: Medical Code(s): W19.XXXA - Unspecified fall, initial encounter (4) Generalized weakness: Status: Acute Category: Medical Code(s): R53.1 - Weakness (5) Decrease in appetite: Status: Acute Category: Medical Code(s): R63.0 - Anorexia (6) Poor appetite: Status: Acute Category: Medical Code(s): R63.0 - Anorexia (7) Hypothyroidism: Status: Acute Qualifiers: Hypothyroidism type: unspecified Qualified Code(s): E03.9 - Hypothyroidism, unspecified Category: Medical Code(s): E03.9 - Hypothyroidism, unspecified (8) Hypertension: Status: Acute Qualifiers: Hypertension type: primary hypertension Qualified Code(s): I10 - Essential (primary) hypertension Category: Medical Code(s): I10 - Essential (primary) hypertension Plan Morning labs still pending, PT report reviewed, patient may need placement for at least a short time.
[2023-05-18 08:00] VITALS: BP 167/95; PULSE 75; RESP 16; TEMP 36.7; O2SAT 97
[2023-05-18] MEDS: METOPROLOL SUCCINATE XL 50MG TABLET 50 MG PO (08:40)
[2023-05-18] MEDS: POTASSIUM CHLORIDE 20MEQ TAB 20 MEQ PO ×3 (08:40→21:35)
[2023-05-18] MEDS: ENOXAPARIN 40MG/0.4ML SYRINGE 40 MG SQ (10:17)
[2023-05-18] MEDS: IRBESARTAN 75MG TABLET 75 MG PO (10:17)
[2023-05-18] MEDS: PANTOPRAZOLE 40MG TABLET 40 MG PO ×2 (10:17→21:35)
[2023-05-18] MEDS: ONDANSETRON 4MG/2ML VIAL 4 MG IV ×2 (10:20→21:35)
[2023-05-18] MEDS: D5W/0.45% NaCl w/40mEq KCl 1,000 ML 75 ML IV (14:27)
[2023-05-18 15:11] VITALS: BP 164/92; PULSE 78; RESP 17; TEMP 36.6; O2SAT 94
[2023-05-18 20:00] VITALS: BP 163/91; PULSE 56; RESP 20; TEMP 36.8; O2SAT 93
[2023-05-18] MEDS: ATORVASTATIN 40MG TABLET 80 MG PO (21:35)
[2023-05-18] MEDS: ACETAMINOPHEN 325MG TAB 650 MG PO (21:35)
[2023-05-18] MEDS: TAMSULOSIN 0.4MG CAPSULE 0.400000000000000022 MG PO (21:35)
[2023-05-18 21:40] VITALS: BMI 25.4
[2023-05-19] MEDS: D5W/0.45% NaCl w/40mEq KCl 1,000 ML 75 ML IV ×2 (02:58→05:30)
[2023-05-19 04:00] VITALS: BP 121/66; PULSE 64; RESP 18; TEMP 36.6; O2SAT 94; BMI 24.5
[2023-05-19] MEDS: LEVOTHYROXINE 50MCG (0.05MG) TAB 50 MCG PO (06:29)
[2023-05-19 07:45] LABS: Chloride 106 mmol/L (98-107); Potassium 4.5 mmoL/L (3.5-5.1); Sodium 135 mmol/L (136-145)
[2023-05-19 07:48] LABS: Anion Gap 11.5 mEq/L (5-15); Blood Urea Nitrogen 3 mg/dl (9-20); Calcium 8.7 mg/dl (8.4-10.2); Carbon Dioxide 22 mmol/L (22.0-30.0); Creatinine Clearance Estimated 55 mL/min (50-200); Estimated Glomerular Filt Rate 108 ml/min (>60); GFR (African American) 130 ML/MIN (>60); Glucose 114 mg/dl (74-100)
[2023-05-19 08:00] VITALS: BP 147/71; PULSE 65; RESP 18; TEMP 36.4; O2SAT 98
[2023-05-19] MEDS: ENOXAPARIN 40MG/0.4ML SYRINGE 40 MG SQ (09:18)
[2023-05-19] MEDS: POTASSIUM CHLORIDE 20MEQ TAB 20 MEQ PO (09:18)
[2023-05-19] MEDS: PANTOPRAZOLE 40MG TABLET 40 MG PO ×2 (09:18→21:54)
[2023-05-19] MEDS: METOPROLOL SUCCINATE XL 50MG TABLET 50 MG PO (09:18)
[2023-05-19] MEDS: IRBESARTAN 75MG TABLET 75 MG PO (09:18)
--- NOTE | 2023-05-19 09:26 | P.PN_ITS ---
Subjective *Date: 05/19/23 *Time: 09:26 Interval history: Patient feels better today, his walking has improved. Medical Exam Vital signs and Labs for Last 24 Hours: Vital Signs Temp Pulse Resp BP Pulse Ox O2 Del Method 05/19/23 08:00 97.6 F 65 18 147/71 H 98 Room Air 05/19/23 05:00 Room Air 05/19/23 04:00 97.9 F 64 18 121/66 94 L Room Air 05/19/23 01:00 Room Air 05/18/23 23:00 Room Air 05/18/23 21:00 Room Air 05/18/23 20:00 Room Air 05/18/23 20:00 98.2 F 56 L 20 163/91 H 93 L Room Air 05/18/23 17:00 Room Air 05/18/23 15:00 Room Air 05/18/23 15:11 97.9 F 78 17 164/92 H 94 L Room Air 05/18/23 13:00 Room Air 05/18/23 11:00 Room Air Intake and Output 05/18/23 05/19/23 05/19/23 23:59 07:59 15:59 Intake Total 120 / 1705 375 / 375 0 / 375 Output Total 0 / 200 0 / 0 Balance 120 / 1505 375 / 375 0 / 375 Intake: Intake, Oral Amount 120 / 830 0 / 0 Intake, Total IV Amount 375 / 375 D5W/0.45% NaCl w/40mEq KCl 1, 375 / 375 000 ml @ 75 mls/hr IV .[id number] [facility] Rx#:[id number] Output: Output, Urine Amount 0 / 200 0 / 0 Other: Number of Voids 3 Number of Unmeasured Voids 1 1 Number of Bowel Movements 1 Weight 158 lb 0.014 oz 152 lb 8 oz Patient Weight 05/19/23 23:59 Weight 152 lb 8 oz Laboratory Results - last 24 hr 05/19/23 06:55: Sodium 135 L, Potassium 4.5 D, Chloride 106, Carbon Dioxide 22, Anion Gap 11.5, BUN 3 L, Creatinine 0.70, Estimated Creat Clear 55, Estimated GFR 108, Est GFR ( Amer) 130, Glucose 114 H, Calcium 8.7 I & O for Labs for Last 24 Hours: Intake & Output 05/16/23 05/17/23 05/18/2325/23 23:59 23:59 23:59 23:59 Intake Total 1790 / 2530 1330 / 1705 375 / 375 Output Total 0 / 0 0 / 0 200 / 200 0 / 0 Balance 0 / 0 1790 / 2530 1130 / 1505 375 / 375 Weight 152 lb 2 oz 157 lb 1.6 oz 158 lb 0.014 oz 152 lb 8 oz Constitutional: Present no acute distress Respiratory: Present normal respiratory effort Cardiac: Present Reg Rate and Rhythm GI: Present normal bowel sounds; Absent tenderness Extremities: Present normal inspection and full ROM Skin: Present intact; Absent erythema Neuro: Present Grossly Intact and moves all extremities Assessment and Plan *Assessment and plan (1) Acute hypokalemia: Status: Acute Category: Medical Code(s): E87.6 - Hypokalemia (2) Postprandial vomiting: Status: Acute Category: Medical Code(s): R11.10 - Vomiting, unspecified (3) Falls: Status: Acute Qualifiers: Encounter type: initial encounter Qualified Code(s): W19.XXXA - Unspecified fall, initial encounter Category: Medical Code(s): W19.XXXA - Unspecified fall, initial encounter (4) Generalized weakness: Status: Acute Category: Medical Code(s): R53.1 - Weakness (5) Decrease in appetite: Status: Acute Category: Medical Code(s): R63.0 - Anorexia (6) Poor appetite: Status: Acute Category: Medical Code(s): R63.0 - Anorexia (7) Hypothyroidism: Status: Acute Qualifiers: Hypothyroidism type: unspecified Qualified Code(s): E03.9 - Hypothyr oidism, unspecified Category: Medical Code(s): E03.9 - Hypothyroidism, unspecified (8) Hypertension: Status: Acute Qualifiers: Hypertension type: primary hypertension Qualified Code(s): I10 - Essential (primary) hypertension Category: Medical Code(s): I10 - Essential (primary) hypertension Plan Patient has improved, he should be able to discharge home soon with home health.
[2023-05-19 16:00] VITALS: BP 157/95; PULSE 69; RESP 14; TEMP 37.4; O2SAT 96
--- NOTE | 2023-05-19 16:55 | PC.NURSE ---
Patient continuing to have diarrhea at this time. Patient's bed alarm on so staff can help patient get to the restroom. Patient A&Ox4 and vss. Patient has no c/o nausea or abdominal pain at this time.
[2023-05-19 19:49] VITALS: BP 152/91; PULSE 74; RESP 22; TEMP 36.7; O2SAT 98
[2023-05-19] MEDS: TAMSULOSIN 0.4MG CAPSULE 0.400000000000000022 MG PO (21:54)
[2023-05-19] MEDS: ATORVASTATIN 40MG TABLET 80 MG PO (21:54)
[2023-05-20 04:00] VITALS: BP 103/63; PULSE 76; RESP 18; TEMP 36.5; O2SAT 98; BMI 24.0
[2023-05-20] MEDS: LEVOTHYROXINE 50MCG (0.05MG) TAB 50 MCG PO (06:48)
[2023-05-20 08:00] VITALS: BP 142/84; PULSE 71; RESP 16; TEMP 36.7; O2SAT 97
--- NOTE | 2023-05-20 08:23 | EXP.ACUTE.PN ---
Subjective *Date: 05/20/23 *Time: 08:23 Interval history: Patient feels better today, tolerated a regular diet, no vomiting. Medical Exam Vital signs and Labs for Last 24 Hours: Vital Signs Temp Pulse Resp BP Pulse Ox O2 Del Method 05/20/23 04:00 97.7 F 76 18 103/63 L 98 Room Air 05/20/23 03:00 Room Air 05/20/23 01:00 Room Air 05/19/23 23:00 Room Air 05/19/23 21:00 Room Air 05/19/23 20:00 Room Air 05/19/23 19:49 98.1 F 74 22 152/91 H 98 Room Air 05/19/23 16:00 99.3 F 69 14 157/95 H 96 Room Air Intake and Output 05/19/23 05/20/23 05/20/23 23:59 07:59 15:59 Intake Total 50 / 785 360 / 360 Output Total 0 / 0 0 / 0 Balance 50 / 785 360 / 360 Intake: Intake, Oral Amount 50 / 410 360 / 360 Output: Output, Urine Amount 0 / 0 0 / 0 Other: Number of Voids 2 Number of Unmeasured Voids 1 1 Weight 150 lb Patient Weight 05/20/23 23:59 Weight 150 lb I & O for Labs for Last 24 Hours: Intake & Output 05/17/23 05/18/23 05/19/23 05/20/23 23:59 23:59 23:59 23:59 Intake Total 1790 / 2530 1330 / 1705 425 / 785 360 / 360 Output Total 0 / 0 200 / 200 0 / 0 0 / 0 Balance 1790 / 2530 1130 / 1505 425 / 785 360 / 360 Weight 157 lb 1.6 oz 158 lb 0.014 oz 152 lb 8 oz 150 lb Constitutional: Present no acute distress Respiratory: Present normal respiratory effort Cardiac: Present Reg Rate and Rhythm GI: Present normal bowel sounds; Absent tenderness Extremities: Present normal inspection and full ROM Skin: Present intact; Absent erythema Neuro: Present Grossly Intact and moves all extremities Assessment and Plan *Assessment and plan (1) Acute hypokalemia: Status: Acute Category: Medical Code(s): E87.6 - Hypokalemia (2) Postprandial vomiting: Status: Acute Category: Medical Code(s): R11.10 - Vomiting, unspecified (3) Falls: Status: Acute Qualifiers: Encounter type: initial encounter Qualified Code(s): W19.XXXA - Unspecified fall, initial encounter Category: Medical Code(s): W19.XXXA - Unspecified fall, initial encounter (4) Generalized weakness: Status: Acute Category: Medical Code(s): R53.1 - Weakness (5) Decrease in appetite: Status: Acute Category: Medical Code(s): R63.0 - Anorexia (6) Poor appetite: Status: Acute Category: Medical Code(s): R63.0 - Anorexia (7) Hypothyroidism: Status: Acute Qualifiers: Hypothyroidism type: unspecified Qualified Code(s): E03.9 - Hypothyroidism, unspecified Category: Medical Code(s): E03.9 - Hypothyroidism, unspecified (8) Hypertension: Status: Acute Qualifiers: Hypertension type: primary hypertension Qualified Code(s): I10 - Essential (primary) hypertension Category: Medical Code(s): I10 - Essential (primary) hypertension Plan OK to discharge home today with home health.
--- NOTE | 2023-05-20 09:02 | HMH.OTEV ---
OT Inpatient Evaluation Rehab OT IP Evaluation Start: 05/16/23 17:39 Freq: ONCE Status: Active Protocol: Document 05/20/23 08:55 ALBERT (Rec: 05/20/23 09:02 ROSYANTOINETTE [id number]) Rehab OT IP Assessment Subjective History Mr. Chaparro is an 83 year old patient of [facility] who sees Dr. Stratton for his primary care. Patient was brought to the ER at [facility] earlier today with reports of weakness and frequent falls. He has had a lot of problem recently with frequent vomiting. Labs in the ER showed low potassium, CT scan showed no acute processes. This history is mainly obtained from conversation with the ER doctor and the medical record as patient does not have a good memory of why he is in the hospital. Patient lives in 1 story home with 1-2 HERMANN. Grand daughter lives with patient at this time to assist with any needs. Recommend HH services to return home today. Subjective I plan to go home today. Analysis Patient's safety during bed mobility, transfers , ambulation and ADL of LBD/ toileting. Patient completed all tasks SUP. Due to hx of falls, recommend RW to be d/c to home. Objective Patient Orientation Person,Name,Age,Birthday,Year Right Upper Extremity Gross ROM WFL Left Upper Extremity Gross ROM WFL Bed Mobility bed mobility - supine/sit Assist Level Supervision/Stand by Transfer Training Sit/Stand/Step Transfer,Sit/ Stand/Pivot Transfer Assist Level Supervision/Stand by Chair Transfer Ability Supervision/Stand by Chair Transfer Technique Sit to/from Ambulatory Chair Transfer Assistive Devices Rolling Walker Lower Body Dressing Ability Independent Upper Body Dressing Ability Independent Performing Toilet Hygiene Ability Independent Overall Commode/Toilet Transfer Ability Independent Commode/Toilet Transfer Technique Sit to/from Ambulatory Rehab OT IP prob,goals,plan Problems Date of Evaluation: 05/20/23 Rehab Potential Rehab Potential Innapropriate for Skilled Therapy Discharge Plan OT Discharge Plan Recommend Patient to be d/c with HH services. Recommend RW to be d/c to home to prevent falling. Eval Complexity Eval Charge Codes 12243 - Low Complexity PHYSICIAN CERTIFICATION: I certify the specified therapy services for Garfield All Chaparro are required, authorized, and reviewed every 30 days.
[2023-05-20] MEDS: ENOXAPARIN 40MG/0.4ML SYRINGE 40 MG SQ (09:03)
[2023-05-20] MEDS: IRBESARTAN 75MG TABLET 75 MG PO (09:03)
[2023-05-20] MEDS: PANTOPRAZOLE 40MG TABLET 40 MG PO (09:03)
[2023-05-20] MEDS: METOPROLOL SUCCINATE XL 50MG TABLET 50 MG PO (09:03)
[2023-05-20] MEDS: POTASSIUM CHLORIDE 20MEQ TAB 20 MEQ PO (09:03)
--- NOTE | 2023-05-20 09:13 | SW/DCPLANNER ---
Addendum entered by Rafaela Hopson 05/20/23 15:10: Mahnaz w/ [facility] stated that services will start 05/22 for this patient. Addendum entered by Rafaela Hopson 05/20/23 10:23: Patient information/order will be faxed to [facility] this AM. Addendum entered by Radha Pope RN 05/20/23 10:03: Granddaughter called back and states [facility] is preference but if they can't provide services whatever agency will be fine. Declines need to home medical equipment. Original Note: Per Dr Marquez the plan for this patient is to discharge home today w/ home health services. I have attempted to contact patient's granddaughter (Kesha [phone]): no answer at this time. I will speak w/ patient and granddaughter regarding home health services. Patient is planned to discharge home today.
--- NOTE | 2023-06-11 10:29 | P.DS_ITS ---
General Admission date:: 05/17/23 Discharge date: 05/20/23 HPI HPI HPI: Mr. Chaparro is an 83 year old patient of [facility] who sees Dr. Stratton for his primary care. Patient was brought to the ER at [facility] earlier today with reports of weakness and frequent falls. He has had a lot of problem recently with frequent vomiting. Labs in the ER showed low potassium, CT scan showed no acute processes. This history is mainly obtained from conversation with the ER doctor and the medical record as patient does not have a good memory of why he is in the hospital. Hospital Course Hospital Course Hospital Course: The patient was admitted and his potassium was low. It was replaced and PT and OT were consulted. His potassium did improve with replacement. Physical therapy felt once medically stable he could discharge home with 24-hour supervision or if that level of care was not available, he should be discharged to a senior living facility due to safety concerns with functional mobility. His walking did improve throughout his stay and he began feeling better. By 05/20/2023 it was felt he was stable to discharge home with home health. He will follow-up with Dr. Stratton. Exam Data for Last 24 hours Vital signs and Labs for Last 24 Hours: Temp Pulse Resp BP Pulse Ox O2 Del Method 98.0 F 71 16 142/84 H 97 Room Air 05/20/23 08:00 05/20/23 08:00 05/20/23 08:00 05/20/23 08:00 05/20/23 08:00 05/20/23 08:00 Narrative: Constitutional Constitutional: no acute distress Comments: Lying in bed with a baseball cap on, pleasant but confused *Routine HEENT Exam Head: Present normocephalic Eye: Present EOMI and PERRL ENT: Present mucous membranes moist *Routine Neck Exam Neck: Present supple; Absent lymphadenopathy *Routine Respiratory Exam Respiratory: Present CTA bilaterally *Routine Cardiovascular Exam Cardiovascular: Present RRR *Routine Abdominal Exam Abdominal: Present soft and normoactive bowel sounds; Absent tenderness *Routine Rectal Exam Rectal:: deferred *Routine Genitalia Exam Genitalia:: deferred *Routine Extremities Exam Extremities: Absent cyanosis, clubbing or edema *Routine Skin Exam Skin: Present warm; Absent rash *Routine Neurological Exam Neurological: Present alert and oriented X3 DS: Diagnosis Discharge Diagnosis (1) Acute hypokalemia: Status: Resolved Code(s): E87.6 - Hypokalemia (2) Postprandial vomiting: Status: Acute Code(s): R11.10 - Vomiting, unspecified (3) Falls: Status: Acute Code(s): W19.XXXA - Unspecified fall, initial encounter Qualifiers: Encounter type: initial encounter Qualified Code(s): W19.XXXA - Unspecified fall, initial encounter (4) Generalized weakness: Status: Acute Code(s): R53.1 - Weakness (5) Decrease in appetite: Status: Resolved Code(s): R63.0 - Anorexia (6) Poor appetite: Status: Acute Code(s): R63.0 - Anorexia (7) Hypothyroidism: Status: Acute Code(s): E03.9 - Hypothyroidism, unspecified Qualifiers: Hypothyroidism type: unspecified Qualified Code(s): E03.9 - Hypothyroidism, unspecified (8) Hypertension: Status: Acute Code(s): I10 - Essential (primary) hypertension Qualifiers: Hypertension type: primary hypertension Qualified Code(s): I10 - Essential (primary) hypertension Meds Home Medications and Allergies Home Medications Medication Instructions Recorded Confirmed Type atorvastatin 80 mg tablet 80 mg PO HS Cholesterol 05/16/23 06/01/23 History fenofibrate nanocrystallized 145 145 mg PO DAILY Cholesterol 05/16/23 06/01/23 History mg tablet fluticasone propionate 50 1 spray intranasal DAILY Allergy 05/16/23 06/01/23 History mcg/actuation nasal Symptoms spray,suspension levothyroxine 50 mcg tablet 50 mcg PO DAILYDM THYROID 05/16/23 06/01/23 History loratadine 10 mg tablet 10 mg PO DAILY Allergy Symptoms 05/16/23 06/01/23 History magnesium oxide 400 mg (241.3 mg 400 mg PO DAILY #0 tabs 05/22/23 06/01/23 Rx magnesium) tablet metoclopramide HCl 5 mg tablet 5 mg PO AC #0 tabs 05/22/23 06/01/23 Rx pantoprazole 40 mg tablet,delayed 40 mg PO HS #0 tabs 05/22/23 06/01/23 Rx release hydrocortisone acetate 25 mg 25 mg MS DAILY PRN hemorrhoids #12 06/01/23 Rx rectal suppository (Anusol-HC) ea levofloxacin 500 mg tablet 500 mg PO DAILY 06/01/23 06/01/23 History levofloxacin 750 mg tablet 750 mg PO DAILY 10 days #10 tabs 06/01/23 Rx polyethylene glycol 3350 17 17 g PO DAILY #510 grams 06/01/23 Rx gram/dose oral powder (Miralax) New Prescriptions to Start Prescriptions: Allergies Allergy/AdvReac Type Severity Reaction Status Date / Time citric acid Allergy Verified 05/16/23 16:52 [From Summer-Kellie] sodium bicarbonate Allergy Verified 05/16/23 16:52 [From Laurent] Discharge Plan Disposition Patient Disposition: Home Health Service Condition: Fair Discharge Order Discharge Orders: Discharge Order (Routine); Ordered 05/20/23 Ordered By: Uriel Marquez Follow up Plan Follow up with: Rodney Stratton MD [Primary Care Provider] - 05/27/23 2:00 pm Prescriptions/Medication Reconciliation: Continued atorvastatin 80 mg tablet 80 mg PO HS Patient Comments: TAKE 1 TABLET BY MOUTH ONCE DAILY levothyroxine 50 mcg tablet 50 mcg PO DAILYDM Patient Comments: TAKE 1 TABLET BY MOUTH ONCE DAILY fenofibrate nanocrystallized 145 mg tablet 145 mg PO DAILY Patient Comments: TAKE 1 TABLET BY MOUTH ONCE DAILY fluticasone propionate 50 mcg/actuation [place],Suspension 1 spray INTRANASAL DAILY Rx Instructions: administer into each nostril loratadine 10 mg Tablet 10 mg PO DAILY No Action magnesium oxide 400 mg (241.3 mg magnesium) Tablet 400 mg PO DAILY Qty: 0 0RF pantoprazole 40 mg Tablet,Delayed Release (Dr/Ec) 40 mg PO HS Qty: 0 0RF metoclopramide HCl 5 mg Tablet 5 mg PO AC Qty: 0 0RF levofloxacin 500 mg Tablet 500 mg PO DAILY polyethylene glycol 3350 [Miralax] 17 gram/dose powder 17 g PO DAILY Qty: 510 0RF hydrocortisone acetate [Anusol-HC] 25 mg suppository 25 mg MS DAILY PRN (Reason: hemorrhoids) Qty: 12 0RF levofloxacin 750 mg tablet 750 mg PO DAILY 10 Days Qty: 10 0RF Problem Reconciliation Problems Reviewed?: Yes Patient Discharge Instructions ACTIVITY: Continue current activity DIET: continue same diet Patient Instructions: DI for Hypokalemia, DI for Muscle Weakness, Hypokalemia Providers Primary Care Provider: Rodney Stratton Admit Provider: Uriel Marquez Attending Provider: Uriel Marquez
== END 2023-05-20 12:40 | disposition home health service (06) | DRG 641 ==
LOC: ER 14:40 → 2ND 15:08
PROVIDERS: Admitting Provider Family Medicine; Emergency Provider Student in an Organized Health Care Education/Training Program; PCP Family Medicine; Visit Provider Family Medicine
DX: E87.6 Hypokalemia (principal); R11.10 Vomiting, unspecified; W19.XXXA Unspecified fall, initial encounter; R63.0 Anorexia; E03.9 Hypothyroidism, unspecified; I10 Essential (primary) hypertension; K21.9 Gastro-esophageal reflux disease without esophagitis; E55.9 Vitamin D deficiency, unspecified
CPT/HCPCS: 36415; 70450; 71260; 72125; 74177; 80048; 80053; 81001; 83605; 83735; 84100; 84443; 84484; 85007; 85025; 87636; 93005; 97116; 97162; 97165; 99285; G0378; J2405; Q9967

== ENCOUNTER 2023-05-20 13:26 | Observation (INO) | payer MEDICARE, BC, SELFPAY ==
[2023-05-20] VITALS (9 sets, daily range): BP systolic 111–153; BP diastolic 69–81; PULSE 55–74; RESP 17–20; TEMP 36.3–36.6; O2SAT 87–98; BMI 25.8; BMI 22.8
--- NOTE | 2023-05-20 14:35 | ECG_ITS ---
APPROVED REPORT Exam: Resting ECG HR:71 bpm ECG Measurements Heart Rate 71 AXES VT 142 P 40 QRSd 81 QRS -19 QT 389 T 24 QTc 411 Conclusion SINUS RHYTHM NORMAL ECG UNCONFIRMED REPORT Electronically signed by : Selvin Quinteros MD 05/21/2023 09:01:13
--- NOTE | 2023-05-20 14:36 | PC.NURSE ---
Dr. Cantu at BS
--- NOTE | 2023-05-20 14:42 | PC.NURSE ---
DR BREWER AT BEDSIDE
--- NOTE | 2023-05-20 14:49 | ED_ITS ---
Discharge Plan Disposition Patient Disposition: Admitted Clinical Impressions Clinical Impression: Syncope, Postprandial vomiting, Generalized weakness Discharge ED Provider: Nancy Pollock General Adult HPI <Romulo Cantu MD - Last Filed: 05/20/23 14:52> General Chief complaint: Weakness Stated complaint: passed out Time Seen by Provider: 05/20/23 14:35 Mode of Arrival: Wheelchair Source of Information: Patient Limitations: No Limitations Description of Symptoms (Recalled from ER Triage Doc. by RN): PT RECENTLY DISCHARGED FROM [facility] AROUND 1300, WHILE GETTING OUT OF VEHICLE PT BECAME UNRESPO NSIVE. FAMILY REPORTS HE WAS OUT FOR A COUPLE OF MINUTES THEN AWAKENED. PT REPORTS FEELING WEAK. DENIES PAIN, REPORTS DIARRHEA History of Present Illness HPI narrative: Patient is an 83-year-old male presenting today with a syncopal episode. I recently saw him in the emergency department and he presented with profound weakness postprandial emesis hypokalemia and was admitted for further evaluation and treatment. According to the family patient's potassium was corrected in the hospital but is functional status never improved. They stated that they came to pick him up from the hospital today and that he was not any better and then immediately upon being discharged patient had complete loss of consciousness and passed out. They do state that he still has some postprandial emesis no EGD was done in the hospital they state. He did have a CT scan which was unremarkable in the emergency department recently. Patient does state he has some chronic and unchanged abdominal discomfort and has continued to have some diarrhea ac cording to the family. Patient denies any chest pain or shortness of breath but is profoundly weak. Related Data Home Medications Medication Instructions Recorded Confirmed metoclopramide HCl 10 mg tablet 10 mg PO BID stomach 08/21/18 05/20/23 rabeprazole 20 mg tablet,delayed 20 mg PO DAILY Acid Reflux 08/21/18 05/20/23 release (AcipHex) atorvastatin 80 mg tablet 80 mg PO HS Cholesterol 05/16/23 05/20/23 cholecalciferol (vitamin D3) 25 25 mcg PO DAILY Supplement 05/16/23 05/20/23 mcg (1,000 unit) tablet (Vitamin D3) cyanocobalamin (vitamin B-12) 1,000 mcg PO DAILY Supplement 05/16/23 05/20/23 1,000 mcg tablet fenofibrate nanocrystallized 145 145 mg PO DAILY Cholesterol 05/16/23 05/20/23 mg tablet fluticasone propionate 50 1 spray intranasal DAILY Allergy 05/16/23 05/20/23 mcg/actuation nasal Symptoms spray,suspension levothyroxine 50 mcg tablet 50 mcg PO DAILYDM THYROID 05/16/23 05/20/23 loratadine 10 mg tablet 10 mg PO DAILY Allergy Symptoms 05/16/23 05/20/23 metoprolol succinate 50 mg 50 mg PO DAILY High Blood Pressure 05/16/23 05/20/23 tablet,extended release 24 hr tamsulosin 0.4 mg capsule (Flomax) 0.4 mg PO HS PROSTATE 05/16/23 05/20/23 Allergies Allergy/AdvReac Type Severity Reaction Status Date / Time citric acid Allergy Verified 05/16/23 16:52 [From [place]] sodium bicarbonate Allergy Verified 05/16/23 16:52 [From [facility]] [facility] <Romulo Cantu MD - Last Filed: 05/20/23 14:52> [facility] Disclaimer: The information contained in this section may have been updated after the patient was seen, as this information can be updated by other users. Medical History BPH (benign prostatic hyperplasia) Colon polyps Diverticulosis GERD (gastroesophageal reflux disease) H. pylori infection History of frequent headaches Hyperlipemia Hypertension Hypothyroidism Rotator cuff arthropathy of both shoulders Vitamin D deficiency Family History No significant family history Social History Smoking Status: Never smoker second hand exposure: No alcohol intake: former substance use type: denies use current occupational status: retired Travel in the last 8 weeks: None household members: spouse housing: house current occupational exposures/hazards: No caffeine: Yes <Romulo Cantu MD - Last Filed: 05/20/23 14:52> ROS Obtained: Yes All systems reviewed & no additional complaints except as documented Physical Exam <Romulo Cantu MD - Last Filed: 05/20/23 14:52> General General appearance: lethargic Respiratory Respiratory exam: Present normal lung sounds bilaterally; Absent respiratory distress Cardiovascular Cardiovascular exam: Present regular rate; Absent tachycardia Abdominal Exam Abdominal exam: Present soft and tenderness (With the palpation there is some tenderness throughout but no focality or rebound or guarding) Neurological Exam Neurological exam: Present alert Medical Decision Making <Romulo Cantu MD - Last Filed: 05/20/23 14:52> Rohan Molina Pt receiving controlled substance: No Vital Signs: 05/20/23 13:27 05/20/23 15:32 05/20/23 16:15 Temperature 97.8 F Temperature Source Oral Pulse Rate 65 67 Pulse Rate [Radial] 67 Respiratory Rate 20 Blood Pressure 151/73 H 153/75 H Blood Pressure [Right Arm] 111/69 Blood Pressure Mean Blood Pressure Mean [Right Arm] 83 Blood Pressure Source Blood Pressure Source [Right Arm] Automatic Cuff Blood Pressure Position Blood Pressure Position [Right Arm] Sitting 02 Sat by Pulse Oximetry 97 96 98 Oxygen Delivery Method Room Air Room Air 05/20/23 16:30 05/20/23 17:43 05/20/23 17:00 Temperature 97.9 F Temperature Source Oral Pulse Rate 55 L 70 69 Pulse Rate [Radial] Respiratory Rate 18 18 Blood Pressure 141/72 H 144/81 H 141/71 H Blood Pressure [Right Arm] Blood Pressure Mean 94 Blood Pressure Mean [Right Arm] Blood Pressure Source Automatic Cuff Blood Pressure Source [Right Arm] Blood Pressure Position Sitting Blood Pressure Position [Right Arm] 02 Sat by Pulse Oximetry 98 87 L Oxygen Delivery Method Room Air Room Air 05/20/23 17:30 05/20/23 18:00 Temperature 97.4 F L Temperature Source Oral Pulse Rate 72 Pulse Rate [Radial] 69 Respiratory Rate 18 17 Blood Pressure 144/81 H Blood Pressure [Right Arm] 140/78 Blood Pressure Mean 95 Blood Pressure Mean [Right Arm] 98 Blood Pressure Source Blood Pressure Source [Right Arm] Automatic Cuff Blood Pressure Position Blood Pressure Position [Right Arm] 02 Sat by Pulse Oximetry 96 92 L Oxygen Delivery Method Room Air Lab Data Lab Results 05/20/23 14:31: WBC 9.9, RBC 5.72, Hgb 16.4, Hct 48.3, MCV 84.5, MCH 28.7, MCHC 34.0, RDW 15.0, Plt Count 313, MPV 8.6, Neut % (Auto) 80.8 H, Lymph % (Auto) 11 .7, [place] % (Auto) 6.2, Eos % (Auto) 1.0, Baso % (Auto) 0.3, Neut # (Auto) 8.0 H, Lymph # (Auto) 1.2, [place] # (Auto) 0.6, Eos # (Auto) 0.1, Baso # (Auto) 0.0, Sodium 130 L, Potassium 5.2 H, Chloride 96 L, Carbon Dioxide 25, Anion Gap 14.2, BUN 7 L D, Creatinine 1.00 D, Estimated Creat Clear 59, Estimated GFR 71, Est GFR ( Amer) 86 D, Glucose 116 H, Calcium 9.7, Phosphorus 3.3, Magnesium 1.4 L, Total Bilirubin 1.7 H, AST 48, ALT 42, Alkaline Phosphatase 128 H, Troponin I < 0.01, NT-Pro-B Natriuret Pep 482 H, Total Protein 6.9, Albumin 3.8, Globulin 3.1, Albumin/Globulin Ratio 1.2 05/20/23 15:02: Lactate 1.6 05/20/23 16:01: Urine Color Yellow, Urine Appearance Clear, Urine pH 7.0, Ur Specific [place] 1.010, Urine Protein Negative, Urine Glucose (UA) Negative, Uri ne Ketones Negative, Urine Blood Negative, Urine Nitrate Negative, Urine Bilirubin Negative, Urine Urobilinogen 0.2, Ur Leukocyte Esterase 2+ A, Urine RBC None, Urine WBC 3-5, Ur Squamous Epith Cells Occasional, Urine Bacteria Trace 05/20/23 14:31 05/20/23 14:31 Orders (Tests/Meds): ED MEDICATIONS Generic Name Dose Route Start Last Admin Trade Name Freq PRN Reason Stop Dose Admin Ceftriaxone Sodium 1 gm/ 50 mls @ 100 mls/hr 05/20/23 17:30 05/20/23 18:11 Sodium Chloride IV 05/30/23 17:29 100 mls/hr Q24H DEE DEE Administration Levothyroxine Sodium 50 mcg 05/21/23 07:00 Levothyroxine 50mcg (0.05mg) Tab PO 06/20/23 06:59 DAILYDM DEE DEE Metoclopramide HCl 5 mg 05/21/23 06:00 Metoclopramide 5mg Tablet PO 06/20/23 05:59 AC DEE DEE Pantoprazole Sodium 40 mg 05/20/23 21:00 05/20/23 21:34 Pantoprazole 40mg Tablet PO 06/19/23 20:59 40 mg HS DEE DEE Administration Tamsulosin HCl 0.4 mg 05/20/23 21:00 05/20/23 21:34 Tamsulosin 0.4mg Capsule PO 06/19/23 20:59 0.4 mg HS DEE DEE Administration Discontinued Medications Generic Name Dose Route Start Last Admin Trade Name Flaquito PRN Reason Stop Dose Admin Lactated Ringer's 1,000 mls @ 999 mls/hr 05/20/23 15:00 05/20/23 15:04 Lactated Ringer's 1000 Ml Bag IV 05/20/23 16:00 999 mls/hr .Q1H1M DEE DEE Administration ORDERS Category Date Time Status CXR --portable [XR chest portable] Stat Exams 05/20/23 14:53 Completed BNP [Brain Natriuretic Peptide] Stat Lab 05/20/23 14:31 Completed CBC w/Auto Diff [Complete Blood Count Auto Diff] Stat Lab 05/20/23 14:31 Completed CMP [Comprehensive Metabolic Panel] Stat Lab 05/20/23 14:31 Completed Complete Blood Count Auto Diff AMLAB Lab 05/21/23 06:00 Ordered Comprehensive Metabolic Panel AMLAB Lab 05/21/23 06:00 Ordered Diarrhea 23 Panel, PCR Stat Lab 05/20/23 14:48 Ordered Lactic Acid Stat Lab 05/20/23 15:02 Completed Magnesium AMLAB Lab 05/21/23 06:00 Ordered Magnesium Stat Lab 05/20/23 14:31 Completed Phosphorous Stat Lab 05/20/23 14:31 Completed Trop I [Troponin I] Stat Lab 05/20/23 14:31 Completed Troponin I Q3H Lab 05/20/23 18:25 Completed Troponin I Q3H Lab 05/20/23 21:30 Completed UA [Urinalysis and Microscopic] Stat Lab 05/20/23 16:01 Completed Urine Culture Stat Micro 05/20/23 16:01 Received Medical Decision Narrative: Patient is very ill-appearing 83-year-old male who is profoundly weak and fatigued has had a significant decline in his functional status over the last several weeks going back to my previous note and discussed further with the patient just 2 weeks ago he was eating for himself driving picking up grandchildren from school and his functional decline has been dramatic over the last 2 weeks. He said postprandial vomiting abdominal discomfort diarrhea now with syncopal episode. He will need to be evaluated inpatient and get an escalation in care likely to include cardiopulmonary evaluation as well as possibly an EGD to evaluate this postprandial emesis that he has had. GI PCR panel has also been ordered. IV fluids electrolytes are being checked care with transition to Dr. Nancy Pollock at 3 PM. <Nancy Pollock, DO - Last Filed: 05/21/23 00:37> Vital Signs: 05/20/23 13:27 05/20/23 15:32 05/20/23 16:15 Temperature 97.8 F Temperature Source Oral Pulse Rate 65 67 Pulse Rate [Radial] 67 Respiratory Rate 20 Blood Pressure 151/73 H 153/75 H Blood Pressure [Right Arm] 111/69 Blood Pressure Mean Blood Pressure Mean [Right Arm] 83 Blood Pressure Source Blood Pressure Source [Right Arm] Automatic Cuff Blood Pressure Position Blood Pressure Position [Right Arm] Sitting 02 Sat by Pulse Oximetry 97 96 98 Oxygen Delivery Method Room Air Room Air 05/20/23 16:30 05/20/23 17:43 05/20/23 17:00 Temperature 97.9 F Temperature Source Oral Pulse Rate 55 L 70 69 Pulse Rate [Radial] Respiratory Rate 18 18 Blood Pressure 141/72 H 144/81 H 141/71 H Blood Pressure [Right Arm] Blood Pressure Mean 94 Blood Pressure Mean [Right Arm] Blood Pressure Source Automatic Cuff Blood Pressure Source [Right Arm] Blood Pressure Position Sitting Blood Pressure Position [Right Arm] 02 Sat by Pulse Oximetry 98 87 L Oxygen Delivery Method Room Air Room Air 05/20/23 17:30 05/20/23 18:00 Temperature 97.4 F L Temperature Source Oral Pulse Rate 72 Pulse Rate [Radial] 69 Respiratory Rate 18 17 Blood Pressure 144/81 H Blood Pressure [Right Arm] 140/78 Blood Pressure Mean 95 Blood Pressure Mean [Right Arm] 98 Blood Pressure Source Blood Pressure Source [Right Arm] Automatic Cuff Blood Pressure Position Blood Pressure Position [Right Arm] 02 Sat by Pulse Oximetry 96 92 L Oxygen Delivery Method Room Air Lab Data Lab Results 05/20/23 14:31: WBC 9.9, RBC 5.72, Hgb 16.4, Hct 48.3, MCV 84.5, MCH 28.7, MCHC 34.0, RDW 15.0, Plt Count 313, MPV 8.6, Neut % (Auto) 80.8 H, Lymph % (Auto) 11.7, [place] % (Auto) 6.2, Eos % (Auto) 1.0, Baso % (Auto) 0.3, Neut # (Auto) 8.0 H, Lymph # (Auto) 1.2, [place] # (Auto) 0.6, Eos # (Auto) 0.1, Baso # (Auto) 0.0, Sodium 130 L, Potassium 5.2 H, Chloride 96 L, Carbon Dioxide 25, Anion Gap 14.2, BUN 7 L D, Creatinine 1.00 D, Estimated Creat Clear 59, Estimated GFR 71, Est GFR ( Amer) 86 D, Glucose 116 H, Calcium 9.7, Phosphorus 3.3, Magnesium 1.4 L, Total Bilirubin 1.7 H, AST 48, ALT 42, Alkaline Phosphatase 128 H, Troponin I < 0.01, NT-Pro-B Natriuret Pep 482 H, Total Protein 6.9, Albumin 3.8, Globulin 3.1, Albumin/Globulin Ratio 1.2 05/20/23 15:02: Lactate 1.6 05/20/23 16:01: Urine Color Yellow, Urine Appearance Clear, Urine pH 7.0, Ur Specific [place] 1.010, Urine Protein Negative, Urine Glucose (UA) Negative, Urine Ketones Negative, Urine Blood Negative, Urine Nitrate Negative, Urine Bilirubin Negative, Urine Urobilinogen 0.2, Ur Leukocyte Esterase 2+ A, Urine RBC None, Urine WBC 3-5, Ur Squamous Epith Cells Occasional, Urine Bacteria Trace Orders (Tests/Meds): ED MEDICATIONS Generic Name Dose Route Start Last Admin Trade Name Derrickq PRN Reason Stop Dose Admin Ceftriaxone Sodium 1 gm/ 50 mls @ 100 mls/hr 05/20/23 17:30 05/20/23 18:11 Sodium Chloride IV 05/30/23 17:29 100 mls/hr Q24H DEE DEE Administration Levothyroxine Sodium 50 mcg 05/21/23 07:00 Levothyroxine 50mcg (0.05mg) Tab PO 06/20/23 06:59 DAILYDM DEE DEE Metoclopramide HCl 5 mg 05/21/23 06:00 Metoclopramide 5mg Tablet PO 06/20/23 05:59 AC DEE DEE Pantoprazole Sodium 40 mg 05/20/23 21:00 05/20/23 21:34 Pantoprazole 40mg Tablet PO 06/19/23 20:59 40 mg HS DEE DEE Administration Tamsulosin HCl 0.4 mg 05/20/23 21:00 05/20/23 21:34 Tamsulosin 0.4mg Capsule PO 06/19/23 20:59 0.4 mg HS DEE DEE Administration Discontinued Medications Generic Name Dose Route Start Last Admin Trade Name Flaquito PRN Reason Stop Dose Admin Lactated Ringer's 1,000 mls @ 999 mls/hr 05/20/23 15:00 05/20/23 15:04 Lactated Ringer's 1000 Ml Bag IV 05/20/23 16:00 999 mls/hr .Q1H1M DEE DEE Administration ORDERS Category Date Time Status CXR --portable [XR chest portable] Stat Exams 05/20/23 14:53 Completed BNP [Brain Natriuretic Peptide] Stat Lab 05/20/23 14:31 Completed CBC w/Auto Diff [Complete Blood Count Auto Diff] Stat Lab 05/20/23 14:31 Completed CMP [Comprehensive Metabolic Panel] Stat Lab 05/20/23 14:31 Completed Complete Blood Count Auto Diff AMLAB Lab 05/21/23 06:00 Ordered Comprehensive Metabolic Panel AMLAB Lab 05/21/23 06:00 Ordered Diarrhea 23 Panel, PCR Stat Lab 05/20/23 14:48 Ordered Lactic Acid Stat Lab 05/20/23 15:02 Completed Magnesium AMLAB Lab 05/21/23 06:00 Ordered Magnesium Stat Lab 05/20/23 14:31 Completed Phosphorous Stat Lab 05/20/23 14:31 Completed Trop I [Troponin I] Stat Lab 05/20/23 14:31 Completed Troponin I Q3H Lab 05/20/23 18:25 Completed Troponin I Q3H Lab 05/20/23 21:30 Completed UA [Urinalysis and Microscopic] Stat Lab 05/20/23 16:01 Completed Urine Culture Stat Micro 05/20/23 16:01 Received Medical Decision Narrative: Patient is very ill-appearing 83-year-old male who is profoundly weak and fatigued has had a significant decline in his functional status over the last several weeks going back to my previous note and discussed further with the patient just 2 weeks ago he was eating for himself driving picking up grandchildren from school and his functional decline has been dramatic over the last 2 weeks. He said postprandial vomiting abdominal discomfort diarrhea now with syncopal episode. He will need to be evaluated inpatient and get an escalation in care likely to include cardiopulmonary evaluation as well as possibly an EGD to evaluate this postprandial emesis that he has had. GI PCR panel has also been ordered. IV fluids electrolytes are being checked care with transition to Dr. Nancy Pollock at 3 PM. Phill DO: On my assessment of the patient, he continues to have general weakness and confusion with repetitive questioning. Workup did not demonstrate any acutely concerning abnormalities at this time, but the patient continues to have weakness and changes in mental status that worry family and that do not feel comfortable taking him home with. They also do not want him admitted to the same service, stated they would like to to have admitted to the hospitalist for further evaluation management since he was discharged today and what they deem is poor condition. Patient was admitted to Dr. Klein in stable condition after an interactive discussion Critical Care <Romulo Cantu MD - Last Filed: 05/20/23 14:52> Critical Care Time Critical Care Time: No
--- NOTE | 2023-05-20 14:53 | XR_ITS ---
FINAL REPORT CLINICAL HISTORY: dyspnea COMPARISON: 01/28/2023 FINDINGS: SINGLE-VIEW CHEST There is mild cardiomegaly. Stimulator lead is seen in the midthoracic spine. The mediastinum is normal. There is a moderate right effusion. Mild chronic changes are seen at the bases. There is no pneumothorax. IMPRESSION: Moderate right effusion. Reviewed, Interpreted and Dictated by Jerry Trotter MD Transcribed by Viridiana Freeman Authenticated and [facility]
[2023-05-20 15:01] LABS: Basophils % 0.3 % (0.1-2.0); Chloride 96 mmol/L (98-107); Eosinophils # 0.1 K/mm3 (0.0-0.4); Hematocrit 48.3 % (42.0-52.0); Hemoglobin 16.4 g/dL (14.1-18.0); Lymphocytes # 1.2 K/mm3 (0.7-4.5); Lymphocytes % 11.7 % (10-50); Mean Corpuscular Hemoglobin 28.7 pg (27.0-31.2); Mean Corpuscular Volume 84.5 fl (80-94); Mean Platelet Volume 8.6 fl (7.4-10.4); Monocytes # 0.6 K/mm3 (0.1-1.0); Monocytes % 6.2 % (1.7-9.3); Neutrophils % 80.8 % (37.0-80.0); Platelet Count 313 K/mm3 (142-424); Potassium 5.2 mmoL/L (3.5-5.1); Red Blood Count 5.72 M/mm3 (4.60-6.20); Sodium 130 mmol/L (136-145); White Blood Count 9.9 K/mm3 (4.8-10.8)
[2023-05-20 15:04] LABS: Alanine Aminotransferase 42 U/L (12-78); Albumin Level 3.8 g/dl (3.5-5.0); Albumin/Globulin Ratio 1.2 (1.1-1.8); Alkaline Phosphatase 128 U/L (38-126); Anion Gap 14.2 mEq/L (5-15); Aspartate Amino Transferase 48 U/L (17-59); Bilirubin,Total 1.7 mg/dl (0.2-1.3); Blood Urea Nitrogen 7 mg/dl (9-20); Carbon Dioxide 25 mmol/L (22.0-30.0); Creatinine Clearance Estimated 59 mL/min (50-200); Estimated Glomerular Filt Rate 71 ml/min (>60); GFR (African American) 86 ML/MIN (>60); Globulin 3.1 g/dL (1.3-3.2); Phosphorous 3.3 mg/dl (2.5-4.5); Total Protein,Serum 6.9 g/dl (6.3-8.2)
[2023-05-20] MEDS: LACTATED RINGERS 1000ML 1,000 ML 999 ML IV (15:04)
[2023-05-20 15:05] LABS: Calcium 9.7 mg/dl (8.4-10.2); Glucose 116 mg/dl (74-100); Magnesium 1.4 mg/dl (1.6-2.3)
[2023-05-20 15:14] LABS: NT Pro Brain Natriuretic Pep. 482 pg/mL (0-450)
[2023-05-20 15:16] LABS: Troponin I < 0.01 ng/ml (0.00-0.034)
[2023-05-20 15:19] LABS: Lactic Acid 1.6 mmol/L (0.7-2.1)
--- NOTE | 2023-05-20 16:01 | PC.NURSE ---
pt up to restroom ambulating with assistance, urine obtained and sent to lab
[2023-05-20 16:11] LABS: Microscopic, Urine URINE MICROSCOPIC (MICROSCOPIC)
[2023-05-20 16:22] LABS: Appearance,Urine CLEAR (Clear); Bilirubin,Urine Negative (Negative); Blood, Urine Negative (Negative); Color,Urine YELLOW (Yellow); Glucose,Urine (UA) Negative (Negative); Ketones,Urine Negative (Negative); Leukocyte Esterase,Urine 2+ (Negative); Nitrate,Urine Negative (Negative); Protein,Urine Negative (Negative); Urobilinogen,Urine 0.2 EU/dl (0.2)
--- NOTE | 2023-05-20 16:24 | PC.NURSE ---
Pt granddaughter updated by Dr. Pollock
[2023-05-20 16:55] LABS: Bacteria,Urine Trace /lpf; Squamous Epithelial Cell,Urine Occasional #/hpf (0-5)
--- NOTE | 2023-05-20 17:14 | EXP.HP ---
History of Present Illness *Admission Date: 05/20/23 *Reason for visit:: falls, weakness, emesis *History of present illness: Mr. Chaparro is an 83 yo M with Hx of GERD, Dementia, HTN, BPH, Hypothyroid who presented [address] [facility] with hypokalemia, weakness, falls. He was admitted and treated over the past 4 days for his condition. He was doing better and discharged earlier today to home with plan for HH. After discharge he developed recurrent N/V, weakness and was brought back tot he ER for re-evaluation. Family who he presented with report he had a syncopal episode prior to readmission to the ER. Recent admission with persistence of profound weakness, postprandial emesis, and fatigue. Work-up in the ER with normal potassium and vitals. Due to weakness, ER requested admission for re-evaluation by PT/OT and possible placement. Family state that he still has some postprandial emesis, no EGD was done during previous hospitalization. CT abdomen with unremarkable finding for acute conditions. Patient does state he has some chronic and unchanged abdominal discomfort and has continued to have some diarrhea according to the family. Patient denies any chest pain or shortness of breath but is profoundly weak. Pleasant but a poor historian. Last known BM this morning. Of note, ate breakfast in hospital with no emesis. [facility] Disclaimer: The information contained in this section may have been updated after the patient was seen, as this information can be updated by other users. Medical History BPH (benign prostatic hyperplasia) Colon polyps Diverticulosis GERD (gastroesophageal reflux disease) H. pylori infection History of frequent headaches Hyperlipemia Hypertension Hypothyroidism Rotator cuff arthropathy of both shoulders Vitamin D deficiency Family History No significant family history Social History Smoking Status: Never smoker second hand exposure: No alcohol intake: former substance use type: denies use current occupational status: retired Travel in the last 8 weeks: None household members: spouse housing: house current occupational exposures/hazards: No caffeine: Yes Review of Systems Review of Systems Review of systems:: pertinent systems reviewed and negative unless documented below Meds Home Medications and Allergies Home Medications Medication Instructions Recorded Confirmed Type metoclopramide HCl 10 mg tablet 10 mg PO BID stomach 08/21/18 05/20/23 History rabeprazole 20 mg tablet,delayed 20 mg PO DAILY Acid Reflux 08/21/18 05/20/23 History release (AcipHex) atorvastatin 80 mg tablet 80 mg PO HS Cholesterol 05/16/23 05/20/23 History cholecalciferol (vitamin D3) 25 25 mcg PO DAILY Supplement 05/16/23 05/20/23 History mcg (1,000 unit) tablet (Vitamin D3) cyanocobalamin (vitamin B-12) 1,000 mcg PO DAILY Supplement 05/16/23 05/20/23 History 1,000 mcg tablet fenofibrate nanocrystallized 145 145 mg PO DAILY Cholesterol 05/16/23 05/20/23 History mg tablet fluticasone propionate 50 1 spray intranasal DAILY Allergy 05/16/23 05/20/23 History mcg/actuation nasal Symptoms spray,suspension levothyroxine 50 mcg tablet 50 mcg PO DAILYDM THYROID 05/16/23 05/20/23 History loratadine 10 mg tablet 10 mg PO DAILY Allergy Symptoms 05/16/23 05/20/23 History metoprolol succinate 50 mg 50 mg PO DAILY High Blood Pressure 05/16/23 05/20/23 History tablet,extended release 24 hr tamsulosin 0.4 mg capsule (Flomax) 0.4 mg PO HS PROSTATE 05/16/23 05/20/23 History New Prescriptions to Start Prescriptions: Allergies Allergy/AdvReac Type Severity Reaction Status Date / Time citric acid Allergy Verified 05/16/23 16:52 [From Laurent] sodium bicarbonate Allergy Verified 05/16/23 16:52 [From Laurent] Exam Data for Last 24 hours Vital signs and Labs for Last 24 Hours: Temp Pulse Resp BP Pulse Ox O2 Del Method 97.8 F 55 L 20 141/72 H 98 Room Air 05/20/23 13:27 05/20/23 16:30 05/20/23 13:27 05/20/23 16:30 05/20/23 16:30 05/20/23 16:30 Laboratory Results - last 24 hr 05/20/23 14:31: WBC 9.9, RBC 5.72, Hgb 16.4, Hct 48.3, MCV 84.5, MCH 28.7, MCHC 34.0, RDW 15.0, Plt Count 313, MPV 8.6, Neut % (Auto) 80.8 H, Lymph % (Auto) 11.7, Calloway % (Auto) 6.2, Eos % (Auto) 1.0, Baso % (Auto) 0.3, Neut # (Auto) 8.0 H, Lymph # (Auto) 1.2, Calloway # (Auto) 0.6, Eos # (Auto) 0.1, Baso # (Auto) 0.0, Sodium 130 L, Potassium 5.2 H, Chloride 96 L, Carbon Dioxide 25, Anion Gap 14.2, BUN 7 L D, Creatinine 1.00 D, Estimated Creat Clear 59, Estimated GFR 71, Est GFR ( Amer) 86 D, Glucose 116 H, Calcium 9.7, Phosphorus 3.3, Magnesium 1.4 L, Total Bilirubin 1.7 H, AST 48, ALT 42, Alkaline Phosphatase 128 H, Troponin I < 0.01, NT-Pro-B Natriuret Pep 482 H, Total Protein 6.9, Albumin 3.8, Globulin 3.1, Albumin/Globulin Ratio 1.2 05/20/23 15:02: Lactate 1.6 05/20/23 16:01: Urine Color Yellow, Urine Appearance Clear, Urine pH 7.0, Ur Specific [place] 1.010, Urine Protein Negative, Urine Glucose (UA) Negative, Urine Ketones Negative, Urine Blood Negative, Urine Nitrate Negative, Urine Bilirubin Negative, Urine Urobilinogen 0.2, Ur Leukocyte Esterase 2+ A, Urine RBC None, Urine WBC 3-5, Ur Squamous Epith Cells Occasional, Urine Bacteria Trace I & O for Last 24 hours: Intake & Output 05/17/23 05/18/23 05/19/23 05/20/23 23:59 23:59 23:59 23:59 Weight 74.843 kg Constitutional Constitutional: no acute distress, average body habitus and chronically ill appearing *Routine HEENT Exam Head: Present normocephalic Eye: Present EOMI and PERRL ENT: Present mucous membranes moist *Routine Neck Exam Neck: Present supple; Absent lymphadenopathy *Routine Respiratory Exam Respiratory: Present CTA bilaterally *Routine Cardiovascular Exam Cardiovascular: Present RRR *Routine Abdominal Exam Abdominal: Present soft and normoactive bowel sounds; Absent tenderness or distended *Routine Rectal Exam Rectal:: deferred *Routine Genitalia Exam Genitalia:: deferred *Routine Extremities Exam Extremities: Absent cyanosis, clubbing or edema *Routine Skin Exam Skin: Present warm; Absent rash *Routine Neurological Exam Neurological: Present alert and moving all extremities; Absent altered mental status Comments: oriented to self and place, pleasant but poor historian. Assessment and Plan *Assessment and plan (1) Generalized weakness: Status: Acute Category: Medical Code(s): R53.1 - Weakness (2) Syncope: Status: Acute Category: Medical Code(s): R55 - Syncope and collapse (3) Memory loss: Status: Acute Category: Medical Code(s): R41.3 - Other amnesia (4) Hypothyroidism: Status: Acute Qualifiers: Hypothyroidism type: unspecified Qualified Code(s): E03.9 - Hypothyroidism, unspecified Category: Medical Code(s): E03.9 - Hypothyroidism, unspecified (5) Hypertension: Status: Acute Qualifiers: Hypertension type: primary hypertension Qualified Code(s): I10 - Essential (primary) hypertension Category: Medical Code(s): I10 - Essential (primary) hypertension (6) Postprandial vomiting: Status: Acute Category: Medical Code(s): R11.10 - Vomiting, unspecified (7) Falls: Status: Acute Qualifiers: Encounter type: initial encounter Qualified Code(s): W19.XXXA - Unspecified fall, initial encounter Category: Medical Code(s): W19.XXXA - Unspecified fall, initial encounter (8) GERD (gastroesophageal reflux disease): Status: Chronic Category: Medical Code(s): K21.9 - Gastro-esophageal reflux disease without esophagitis (9) BPH (benign prostatic hyperplasia): Status: Chronic Category: Medical Code(s): N40.0 - Benign prostatic hyperplasia without lower urinary tract symptoms Plan 83-year-old male recently discharged earlier today who presented to the ER for persistent weakness and postprandial emesis. Discussed case with the ER, request admission because of persistent weakness, inability for family to care for him at home, and potential need for further workup of emesis. Medicine agreed to admit for further management. Problems addressed as follows: Weakness Falling Postprandial emesis -Differential diagnosis includes gastroenteritis, hiatal hernia, GERD, rumination, constipation. -Continue PPI. Reglan 5 mg with meals as needed for nausea or vomiting -Speech eval with possible upper GI with modified barium in the morning. -Pending findings, consider surgical eval for possible EGD. If no emesis during admission, will consider outpatient referral for scope and further workup -Given weakness and falls, will have PT and OT reevaluate patient. Anticipate patient will need therapy/placement given his progressive decline, advanced age, dementia, weakness and difficulty being cared for at home. -Holding metoprolol and monitoring blood pressure at this BX is weakness and falls, permissive HTN during admission Hypothyroidism: Continue home levothyroxine 50 mcg daily GERD: Continue formulary substitution with pantoprazole 40 mg nightly BPH: Continue tamsulosin 0.4 mg nightly Hyperlipidemia: Continue Lipitor 80 mg nightly PPI Regular diet holding DVT prophy due to falls
--- NOTE | 2023-05-20 17:41 | PC.NURSE ---
REPORT GIVEN TO MARIJA MEEHAN
[2023-05-20] MEDS: CEFTRIAXONE SODIUM 1 GM in 0.9 % SODIUM CHLORIDE 50 ML IV (18:11)
--- NOTE | 2023-05-20 18:12 | PC.NURSE ---
PT ADMITTED TO 215 FROM ED
[2023-05-20 19:15] LABS: Troponin I < 0.01 ng/ml (0.00-0.034)
[2023-05-20] MEDS: TAMSULOSIN 0.4MG CAPSULE 0.400000000000000022 MG PO (21:34)
[2023-05-20] MEDS: PANTOPRAZOLE 40MG TABLET 40 MG PO (21:34)
[2023-05-20 22:29] LABS: Troponin I < 0.01 ng/ml (0.00-0.034)
[2023-05-21 04:00] VITALS: BP 120/66; PULSE 80; RESP 18; TEMP 36.4; O2SAT 99; BMI 23.6
[2023-05-21] MEDS: LEVOTHYROXINE 50MCG (0.05MG) TAB 50 MCG PO (06:15)
[2023-05-21] MEDS: METOCLOPRAMIDE 5MG TABLET 5 MG PO ×3 (06:15→16:57)
[2023-05-21 07:04] LABS: Basophils % 0.2 % (0.1-2.0); Eosinophils # 0.1 K/mm3 (0.0-0.4); Eosinophils % 1.4 % (0.1-12.0); Hematocrit 44.2 % (42.0-52.0); Hemoglobin 15.1 g/dL (14.1-18.0); Lymphocytes # 1.3 K/mm3 (0.7-4.5); Lymphocytes % 16.8 % (10-50); Mean Corpuscular HGB Conc 34.1 g/dL (31.8-35.4); Mean Corpuscular Hemoglobin 28.3 pg (27.0-31.2); Mean Corpuscular Volume 83.1 fl (80-94); Mean Platelet Volume 8.2 fl (7.4-10.4); Monocytes # 0.6 K/mm3 (0.1-1.0); Monocytes % 7.3 % (1.7-9.3); Neutrophils # 5.6 K/mm3 (1.8-7.8); Neutrophils % 74.3 % (37.0-80.0); Platelet Count 247 K/mm3 (142-424); Red Blood Count 5.32 M/mm3 (4.60-6.20); White Blood Count 7.5 K/mm3 (4.8-10.8)
[2023-05-21 07:27] LABS: Alanine Aminotransferase 39 U/L (12-78); Albumin Level 3.2 g/dl (3.5-5.0); Albumin/Globulin Ratio 1.1 (1.1-1.8); Alkaline Phosphatase 108 U/L (38-126); Anion Gap 8.9 mEq/L (5-15); Aspartate Amino Transferase 42 U/L (17-59); Bilirubin,Total 1.3 mg/dl (0.2-1.3); Blood Urea Nitrogen 8 mg/dl (9-20); Calcium 9.2 mg/dl (8.4-10.2); Carbon Dioxide 23 mmol/L (22.0-30.0); Chloride 100 mmol/L (98-107); Creatinine Clearance Estimated 53 mL/min (50-200); Estimated Glomerular Filt Rate 92 ml/min (>60); GFR (African American) 112 ML/MIN (>60); Globulin 2.9 g/dL (1.3-3.2); Glucose 90 mg/dl (74-100); Magnesium 1.4 mg/dl (1.6-2.3); Potassium 3.9 mmoL/L (3.5-5.1); Sodium 128 mmol/L (136-145); Total Protein,Serum 6.1 g/dl (6.3-8.2)
--- NOTE | 2023-05-21 07:40 | CA_ITS ---
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 123.0 (50-130 cm/s) AO Peak GR. 6.00 mmHg AO Mean GR. 3.10 (<5 mmHg) AO VTI 23.5 (18-25 cm) ZAHRA (VTI) 2.89 (2.5-4.5 cm2) Mitral Valve MV A Velocity 104.0 (40-130 cm/s) E/A Ratio 0.53 MV Mean Gr. 1.60 (<2mmHg) Pulmonary Valve MN End VMAX 109.0 cm/s Tricuspid Valve TR P. Velocity 212.00 cm/s RAP Estimate 10.00 mmHg RVSP 27.90 mmHg Left Ventricle The left ventricle is normal size. The left ventricular systolic function is normal. The left ventricular ejection fraction is within the normal range. There is increased LV wall thickness. There is normal LV segmental wall motion. Transmitral Doppler flow pattern suggests impaired LV relaxation. LVEF is 60%. Right Ventricle Right ventricle is mildly dilated. The right ventricular systolic function is normal. Atria The left atrium size is normal. The right atrium size is normal. There is no Doppler evidence of interatrial shunt. Aortic Valve The aortic valve is mildly thickened. There is no aortic valvular stenosis. Trace aortic regurgitation. Mitral Valve The mitral valve leaflets are mildly thickened. No evidence of mitral valve stenosis. Trace mitral regurgitation. Tricuspid Valve The tricuspid valve leaflets are thin and pliable. Trace tricuspid regurgitation. There is insufficient TR jet to estimate RVSP. Pulmonic Valve The pulmonary valve is normal in structure. Trace pulmonic regurgitation. Great Vessels The aortic root is normal in size. The ascending aorta is not well-visualized. IVC is normal in size and collapses >50% with inspiration. Pericardium There is no pericardial effusion. Other Information Study Quality: Fair Conclusion Normal biventricular systolic function. Mild RV dilation. No significant valvular stenosis or regurgitation. Electronically signed by : Danay Mccollum MD 05/21/2023 11:46:57
[2023-05-21 08:00] VITALS: BP 144/82; PULSE 73; RESP 17; TEMP 36.4; O2SAT 98
--- NOTE | 2023-05-21 09:00 | SW/DCPLANNER ---
Addendum entered by Charlene Card RN 05/22/23 13:15: Patient discharged to [facility] this morning. Addendum entered by Rafaela Hopson 05/21/23 15:33: I have updated Jennifer w/ [facility] and patient's family that patient will not discharge till tomorrow per Dr Klein. Addendum entered by Rafaela Hopson 05/21/23 10:22: Jennifer w/ [facility] stated that she can accept this patient SNF level of care once medically stable for discharge. Original Note: I spoke w/ this patient and his granddaughter regarding plans once medically stable for discharge. Patient and granddaughter are agreeable to SNF level of care at [facility]. Patient information will be faxed this AM. Discharge date is unknown at this time. I will follow up w/ Jennifer at [facility] once information is reviewed.
--- NOTE | 2023-05-21 09:09 | FL_ITS ---
FINAL REPORT CLINICAL HISTORY: postprandial emesis ft 0:58 dap 506.82 FINDINGS: ESOPHAGRAM HISTORY: Postprandial pain PROCEDURE: The patient ingested barium. The examination was limited as the patient was unable to stand. Fluoro time: 58 seconds DAP: 506.82 uGy.m2 16 images were obtained. FINDINGS: No obvious stricture is identified. There is a small sliding-type hiatal hernia. No gastroesophageal reflux was demonstrated during the exam. Esophageal dysmotility was demonstrated during the exam. IMPRESSION: Small sliding type hiatal hernia. Esophageal dysmotility. Films reviewed , interpreted and dictated by Dr. Trotter. Transcribed by Elijah Terrell PA-C. Reviewed, Interpreted and Dictated by Jerry Trotter MD Transcribed by ROZ Lang Authenticated and [facility]
[2023-05-21] MEDS: MAGNESIUM SULFATE IN WATER 2 GM/50 ML PIGGYBACK IV (09:11)
[2023-05-21] MEDS: MAGNESIUM OXIDE 400MG TABLET 400 MG PO (09:11)
--- NOTE | 2023-05-21 09:35 | HMH.SLDYSPHA ---
Speech & Language Evaluation Speech/Language Dysphagia Evaluation Start: 05/21/23 09:12 Freq: ONCE Status: Active [facility]: [facility]Rec: 05/21/23 09:35 [facility] [id number]) Dysphagia Assess/Goals/Plan Assessment Date of Evaluation: 05/21/23 Evaluation Type Initial Certification Assessment/Problems postprandial emesis per MD order. Does Patient Qualify for Service No Qualify/Failure Comment Based on results of CSE, clinical observations, and patient interview, Mr. Chaparro's manipulation and mastication of the bolus and swallowing appear to be WFL at the bedside. He is receiving a full barium swallow later at this date to further assess the esophageal phase of the swallow. No further skilled speech therapy services are warranted at this time. Recommendations PHYSICIAN CERTIFICATION: The specified therapy services are required, authorized, and reviewed every 30 days. Diet Recommendations Normal Liquid Type Recommendations Normal/Thin SL Swallow Guidelines Alt bite w/sip thru meal, Standard Aspiration Prec.,Eat at slow rate,Reflux precautions Dysphagia Swallow Precautions/Strategies Sitting Upright (90 deg), Alternate Liquids/Solids Plan Pt/Guardian verbally ack understanding Yes of dx/prognosis/goals G -code Required No Education Instructions provided Discussed results of CSE, diet recommendations, provided handouts on education for esophageal diets if pt feels regular solids become difficult, as well as GERD tips; he expressed understanding. Discussed CSE and scheduled full barium MD and nursing expressed understanding. Pt/Caregiver able to recall information Able to recall/restate Reinforcement needed No Speech & Language HPI History Present Illness Description of Patient Problem Mr. Chaparro is an 83 yo M with Hx of GERD, Dementia, HTN , BPH, Hypothyroid who presented 4 days ago to [facility] with hypokalemia, weakness, falls. He was admitted and treated over the past 4 days for his condition. He was doing better and discharged to home with plan for . After discharge he developed recurrent N/V, weakness and was brought back to the ER for re-evaluation. Family state that he still has some postprandial emesis, no EGD was done during previous hospitalization. CT abdomen with unremarkable finding for acute conditions. Patient does state he has some chronic and unchanged abdominal discomfort and has continued to have some diarrhea according to the family. CXR: moderate right effusion. Rehab Services Assessed Speech therapy Is this evaluation r/t stroke? No General Information General Current Food Consistancy Regular,Thin Liquids Dentition Poor Dentition Oxygen Status Room Air Patient Orientation Person,Place,Time Ability to Follow Directions Good Communication Ability No Impairment Dysphagia:Food Presentation Evaluation Food Type Pureed,Mechanical Soft,Regular ,Liquid,Pudding,Other Dysphagia Evaluation Summary Mr. Chaparro was seen sitting upright in his bed for the clinical bedside swallow evaluation. He was alert and oriented to his name, location , and birthday. He was able to follow simple commands and demonstrated ability to clear throat and cough on cue. He was administered the following bolus consistencies: thin liquid (ice chip, spoonful of water, open cup/straw sip, consecutive sips from open cup /straw), puree (applesauce), pudding, mixed consistency ( peaches with and without juice ), mechanical soft (nutrigrain bar), and regular (cindy cracker.) Two to three trials were given across all bolus consistencies to assess for fatigue and observe consistency. No overt s/sxs of aspiration were observed throughout the CSE and pt demonstrated no signs of distress or discomfort. It is recommended that Mr. Chaparro continue on his current diet. No further skilled speech therapy services are warranted at this time. Stroke Dysphagia Assessment PHYSICIAN CERTIFICATION: I certify the specified therapy services for Garfield Chaparro are required, authorized, and reviewed every 30 days.
--- NOTE | 2023-05-21 09:53 | HMH.OTEV ---
OT Inpatient Evaluation Rehab OT IP Evaluation Start: 05/20/23 17:13 Freq: ONCE Status: Active Protocol: Document 05/21/23 09:45 [facility] (Rec: 05/21/23 09:52 [facility] [id number]) Rehab OT IP Assessment Subjective History Pt oriented x 2 on arrival. Pt agreeable to engage in therapy evaluation. Pt was discharged from [facility] yesterday (05/20/23) and had a fall bringing hime back to ER. ER documentation: Mr. Chaparro is an 83 yo M with Hx of GERD, Dementia, HTN , BPH, Hypothyroid who presented 4 days ago to [facility] with hypokalemia, weakness, falls. He was admitted and treated over the past 4 days for his condition. He was doing better and discharged earlier today to home with plan for HH. After discharge he developed recurrent N/V, weakness and was brought back tot he ER for re-evaluation. Family who he presented with report he had a syncopal episode prior to readmission to the ER. Recent admission with persistence of profound weakness, postprandial emesis, and fatigue. Work-up in the ER with normal potassium and vitals. Due to weakness, ER requested admission for re- evaluation by PT/OT and possible placement Pt appears to be more confused than he was yesterday morning when treated for therapy. Pt claims he lives alone and is able to complete all ADLs and IADLs independently prior to being admitted to the hospital . However, yesterday he told therapist his granddaughter lived with him and is home with him in the evenings. He appeared to have more difficulty sequencing tasks and following simple directions when evaluated today. Subjective No I live by myself. Objective Patient Orientation Person,Birthday Right Upper Extremity Gross ROM WFL Left Upper Extremity Gross ROM WFL Bed Mobility bed mobility-scooting,bed mobility - supine/sit Assist Level Contact Guard/Hand Hold Transfer Training Sit/Stand Transfer Assist Level Minimal x 2 (25% assist) Rehab OT IP prob,goals,plan Problems Date of Evaluation: 05/21/23 OT IP Problems Bed Mobility,Transfers,Balance ,Self care,Safety Rehab Potential Rehab Potential Good Equipment Needs Assistive Devices Rolling / Wheeled Walker Plan OT intervention Plan Bed Mobility,Transfers,Balance ,Self care,Safety,Therapeutic Exercise OT Plan Frequency BID Duration LOS Discharge Goals Bed Mobility Ability Standby Assistance Sit to Stand Chair Transfer Ability Minimal x 1 (25% assist) Chair Transfer Ability Minimal x 1 (25% assist) Chair Transfer Technique Sit to/from Ambulatory Chair Transfer Assistive Devices Rolling Walker Feeding Ability Assist with Tray Set Up Lower Body Dressing Ability Moderate Assistance Upper Body Dressing Ability Minimal Assistance Bathing Ability Moderate Assistance Performing Toilet Hygiene Ability Minimal Assistance Overall Commode/Toilet Transfer Ability Minimal Assistance Commode/Toilet Transfer Technique Sit to/from Ambulatory Commode/Toilet Transfer Assistive Grab Bars Devices Oral Care Assist Minimal Assistance Decrease in Endurance Yes Discharge Plan OT Discharge Plan Pt will continue to be seen for OT services while at [facility]. At this time, pt would benefit from short term rehab at SNF following discharge. Continued skilled therapy is important for patient to improve strengthening, safety, endurance, ADL independence, and functional transfer to reach PLOF. Pt agreeable with this plan. Care mangagment notified of placement recommendation. Eval Complexity Eval Charge Codes 62854 - Moderate Complexity PHYSICIAN CERTIFICATION: I certify the specified therapy services for Garfield Chaparro are required, authorized, and reviewed every 30 days.
--- NOTE | 2023-05-21 09:55 | HMH.PHAINT1 ---
Pharmacy Intervention Comments: Home med list verified with patient's granddaughter (Kesha Godwin) via phone and with [facility] pharmacy via phone.
--- NOTE | 2023-05-21 10:13 | HMH.PTEV ---
Physical Therapy Evaluation Rehab PT IP Evaluation Start: 05/20/23 17:13 Freq: ONCE Status: Active Protocol: Document 05/21/23 10:04 SERENA (Rec: 05/21/23 10:13 SERENA [id number]) Subjective/History History History Pt oriented x 2 on arrival. Pt agreeable to engage in therapy evaluation. Pt was discharged from [facility] yesterday (05/20/23) and had a fall bringing hime back to ER. ER documentation: Mr. Chaparro is an 83 yo M with Hx of GERD, Dementia, HTN , BPH, Hypothyroid who presented 4 days ago to [facility] with hypokalemia, weakness, falls. He was admitted and treated over the past 4 days for his condition. He was doing better and discharged earlier today to home with plan for HH. After discharge he developed recurrent N/V, weakness and was brought back tot he ER for re-evaluation. Family who he presented with report he had a syncopal episode prior to readmission to the ER. Recent admission with persistence of profound weakness, postprandial emesis, and fatigue. Work-up in the ER with normal potassium and vitals. Due to weakness, ER requested admission for re- evaluation by PT/OT and possible placement Pt appears to be more confused than he was yesterday morning when treated for therapy. Pt claims he lives alone and is able to complete all ADLs and IADLs independently prior to being admitted to the hospital . However, yesterday he told therapist his granddaughter lived with him and is home with him in the evenings. He appeared to have more difficulty sequencing tasks and following simple directions when evaluated today. Subjective Subjective I just keep getting weaker. Rehab PT IP Eval Objective Appearance Patient Behavior Confused Patient Orientation Person,Place,Birthday Difficulty following instructions none Speech Pattern Clear,Appropriate Ambulation Patient Able to Ambulate Yes Ambulation Observation IP General Gait Pattern Observation Wide Based Gait Ambulation Distance (feet) 20 Ambulation Assistive Device None Ambulation Ability Minimal x 1 (25% assist) Balance Ability to Arise Able, uses arms to help Sitting Balance Leans or slides in chair Standing Balance Steady, wide stance Dynamic Sitting Balance Ability Good Dynamic Standing Balance Ability Good Transfers Bed Transfer Ability Minimal x 1 (25% assist) Sit to Stand Bed Transfer Ability Minimal x 1 (25% assist) ROM All Extremities PT ROM Status WFL MMT All Extremities PT MMT WFL Rehab PT IP prob,goals,plan Problems Date of Evaluation: 05/21/23 PT IP Problems Bed Mobility,Transfers,Gait, Balance,Self care,Safety Rehab Potential Rehab Potential Good Equipment Needs Assistive Devices Rolling / Wheeled Walker Plan PT Intervention Plan Bed Mobility,Transfers,Gait, Balance,Self care,Safety, Therapeutic Exercise PT Plan Frequency BID Duration LOS Discharge Goals Bed Transfer Ability Independent Sit to Stand Chair Transfer Ability Contact Guard/Hand Hold Ambulation Assistive Device None Ambulation Distance (feet) 75 Discharge Plan PT Discharge Plan Due to patient readmission and current functional decline, PT suggest that patient would be a good candidate for DC to SNF for further rehab once found medically stable by MD. Patient was agreeable. Eval Complexity Eval Charge Codes 72547 - High Complexity PHYSICIAN CERTIFICATION: I certify the specified therapy services for Garfield Chaparro are required, authorized, and reviewed every 30 days.
[2023-05-21] MEDS: BARIUM SULFATE(LIQUID E-Z-PAQUE);355ML BOTTLE 355 ML PO (10:38)
--- NOTE | 2023-05-21 10:55 | DIET.NUTRFU ---
Addendum entered by Zeinab Winn RD, LD 05/21/23 13:39: Esophageal dysmotility was demonstrated during the exam, report from barium swallow study, provider ordered mechanical soft, ground diet. Shakes were added for lunch and dinner to help with calorie/protein intake if consumed. Original Note: Chart review and interview, Patient denied any chewing or swallowing issues, when asked him about his weight loss replied he is just not hungry. Patient does have dementia and according to chart review he has had some vomiting and diarrhea in the past. He was on reglan at home. He had a bedside this morning which recommended regular/thin. Full barium also this morning awaiting for report. Patient has lost 41.8# (19kg) since 01/28/23. Beginning of April was 69-77kg, down 3kg-11kg with CBW 66kg. He appears depleted in face, very thin extremities, BMI of 23.7. Reviewed with IDT and provider this morning and he qualifies for dz severe PCM. Patient agreed to try chocolate milkshake with lunch if diet upgraded from NPO. social group worker has also established placement at [facility] [facility] when ready for discharge.
[2023-05-21 11:18] VITALS: BMI 23.6
[2023-05-21] MEDS: CEFTRIAXONE SODIUM 1 GM in 0.9 % SODIUM CHLORIDE 50 ML IV (13:57)
[2023-05-21 15:53] VITALS: BP 116/53; PULSE 76; RESP 17; TEMP 36.5; O2SAT 98
--- NOTE | 2023-05-21 17:10 | PC.NURSE ---
Patient very weak at beginning of shift, ambulated to the bathroom but unable to make past the door frame. Bedside commode utilized. Patient confused to time and situation. IV antibiotics given. Lung sounds clear. Patient later in shift able to ambulate to bathroom commode with 1 assist.
--- NOTE | 2023-05-21 19:58 | EXP.ACUTE.PN ---
Subjective *Date: 05/21/23 *Time: 19:58 Medical Exam Vital signs and Labs for Last 24 Hours: Vital Signs Temp Pulse Resp BP Pulse Ox O2 Del Method 05/21/23 18:37 Room Air 05/21/23 17:05 Room Air 05/21/23 15:53 97.7 F 76 17 116/53 L 98 Room Air 05/21/23 14:56 Room Air 05/21/23 12:55 Room Air 05/21/23 11:03 Room Air 05/21/23 09:15 Room Air 05/21/23 09:11 Room Air 05/21/23 09:12 Room Air 05/21/23 08:00 97.6 F 73 17 144/82 H 98 Room Air 05/21/23 04:00 97.5 F L 80 18 120/66 99 05/21/23 03:00 Room Air 05/21/23 01:00 Room Air 05/20/23 23:00 Room Air 05/20/23 20:00 Room Air 05/20/23 21:00 Room Air 05/20/23 20:00 97.5 F L 74 18 126/78 96 Room Air Intake and Output 05/21/23 05/21/23 05/21/23 07:59 15:59 23:59 Intake Total 360 / 815 135 / 815 320 / 815 Output Total 0 / 200 0 / 200 200 / 200 Balance 360 / 615 135 / 615 120 / 615 Intake: Intake, Oral Amount 360 / 765 135 / 765 270 / 765 Intake, Total IV Amount 50 / 50 Ceftriaxone Sodium 1 gm In 0.9 50 / 50 % Sodium Chloride 50 ml @ 100 mls/hr IV Q24H [facility] Rx#:[id number] Output: Output, Urine Amount 0 / 200 0 / 200 200 / 200 Other: Number of Voids 2 Number of Unmeasured Voids 1 1 Number of Bowel Movements 1 Weight 66.791 kg 66.79 kg Patient Weight 05/21/23 23:59 Weight 66.79 kg Laboratory Results - last 24 hr 05/20/23 21:30: Troponin I < 0.01 05/21/23 06:47: WBC 7.5, RBC 5.32, Hgb 15.1, Hct 44.2, MCV 83.1, MCH 28.3, MCHC 34.1, RDW 15.0, Plt Count 247, MPV 8.2, Neut % (Auto) 74.3, Lymph % (Auto) 16.8, [place] % (Auto) 7.3, Eos % (Auto) 1.4, Baso % (Auto) 0.2, Neut # (Auto) 5.6, Lymph # (Auto) 1.3, [place] # (Auto) 0.6, Eos # (Auto) 0.1, Baso # (Auto) 0.0, Sodium 128 L, Potassium 3.9 D, Chloride 100, Carbon Dioxide 23, Anion Gap 8.9, BUN 8 L, Creatinine 0.80, Estimated Creat Clear 53, Estimated GFR 92, Est GFR ( Amer) 112 D, Glucose 90 D, Calcium 9.2, Magnesium 1.4 L, Total Bilirubin 1.3, AST 42, ALT 39, Alkaline Phosphatase 108, Total Protein 6.1 L, Albumin 3.2 L D, Globulin 2.9, Albumin/Globulin Ratio 1.1 I & O for Labs for Last 24 Hours: Intake & Output 05/18/23 05/19/23 05/20/23 05/21/23 23:59 23:59 23:59 23:59 Intake Total 815 / 815 Output Total 0 / 0 200 / 200 Balance 0 / 360 615 / 615 Weight 64.41 kg 66.79 kg Assessment and Plan *Assessment and plan (1) Generalized weakness: Status: Acute Category: Medical Code(s): R53.1 - Weakness (2) UTI (urinary tract infection): Status: Acute Category: Medical Code(s): N39.0 - Urinary tract infection, site not specified (3) Syncope: Status: Acute Category: Medical Code(s): R55 - Syncope and collapse (4) Memory loss: Status: Acute Category: Medical Code(s): R41.3 - Other amnesia (5) Hypothyroidism: Status: Acute Qualifiers: Hypothyroidism type: unspecified Qualified Code(s): E03.9 - Hypothyroidism, unspecified Category: Medical Code(s): E03.9 - Hypothyroidism, unspecified (6) Hypertension: Status: Acute Qualifiers: Hypertension type: primary hypertension Qualified Code(s): I10 - Essential (primary) hypertension Category: Medical Code(s): I10 - Essential (primary) hypertension (7) Postprandial vomiting: Status: Acute Category: Medical Code(s): R11.10 - Vomiting, unspecified (8) Falls: Status: Acute Qualifiers: Encounter type: initial encounter Qualified Code(s): W19.XXXA - Unspecified fall, initial encounter Category: Medical Code(s): W19.XXXA - Unspecified fall, initial encounter (9) GERD (gastroesophageal reflux disease): Status: Chronic Category: Medical Code(s): K21.9 - Gastro-esophageal reflux disease without esophagitis (10) BPH (benign prostatic hyperplasia): Status: Chronic Category: Medical Code(s): N40.0 - Benign prostatic hyperplasia without lower urinary tract symptoms Plan 83-year-old male recently discharged earlier today who presented to the ER for persistent weakness and postprandial emesis. Discussed case with the ER, request admission because of persistent weakness, inability for family to care for him at home, and potential need for further workup of emesis. Medicine agreed to admit for further management. Patient tolerating p.o. intake at this time. Urine was concerning for UTI, initiated on antibiotics. Continues to require admission pending placement. Problems addressed as follows: Weakness Falling Postprandial emesis -Differential diagnosis includes gastroenteritis, hiatal hernia, GERD, rumination, constipation. -Continue PPI. Reglan 5 mg with meals as needed for nausea or vomiting -Modified barium small bowel follow-through performed today. Patient has hiatal hernia. Also has some esophageal dysmotility. Speech evaluated, discussed case today. Recommend esophageal diet for decreased risk of emesis and improved motility. -Would benefit from eval as an outpatient with EGD, will refer to GI for further management as an outpatient - Given weakness and falls, evaluated by PT and OT, recommend placement for further therapy. Case management assisting with placement recommendations. -Holding metoprolol and monitoring blood pressure UTI: UA grossly abnormal. Initiated on ceftriaxone, continue daily 1 g IV. Urine culture pending. Hypothyroidism: Continue home levothyroxine 50 mcg daily GERD: Continue formulary substitution with pantoprazole 40 mg nightly BPH: Continue tamsulosin 0.4 mg nightly Hyperlipidemia: Continue Lipitor 80 mg nightly PPI modified diet holding DVT prophy due to falls
[2023-05-21 20:00] VITALS: BP 114/76; PULSE 110; RESP 22; TEMP 36.6; O2SAT 91; O2SAT 96
[2023-05-21] MEDS: TAMSULOSIN 0.4MG CAPSULE 0.400000000000000022 MG PO (20:33)
[2023-05-21] MEDS: PANTOPRAZOLE 40MG TABLET 40 MG PO (20:33)
[2023-05-22 04:00] VITALS: BP 119/61; PULSE 86; RESP 20; TEMP 36.6; O2SAT 95; BMI 23.8
[2023-05-22] MEDS: LEVOTHYROXINE 50MCG (0.05MG) TAB 50 MCG PO (06:30)
[2023-05-22] MEDS: METOCLOPRAMIDE 5MG TABLET 5 MG PO ×2 (06:35→10:02)
--- NOTE | 2023-05-22 07:04 | EXP.DC.SUM ---
General Admission date:: 05/20/23 Discharge date: 05/22/23 HPI HPI HPI: Mr. Chaparro is an 83 yo M with Hx of GERD, Dementia, HTN, BPH, Hypothyroid who presented 4 days ago to [facility] with hypokalemia, weakness, falls. He was admitted and treated over the past 4 days for his condition. He was doing better and discharged earlier today to home with plan for HH. After discharge he developed recurrent N/V, weakness and was brought back tot he ER for re-evaluation. Family who he presented with report he had a syncopal episode prior to readmission to the ER. Recent admission with persistence of profound weakness, postprandial emesis, and fatigue. Work-up in the ER with normal potassium and vitals. Due to weakness, ER requested admission for re-evaluation by PT/OT and possible placement. Family state that he still has some postprandial emesis, no EGD was done during previous hospitalization. CT abdomen with unremarkable finding for acute conditions. Patient does state he has some chronic and unchanged abdominal discomfort and has continued to have some diarrhea according to the family. Patient denies any chest pain or shortness of breath but is profoundly weak. Pleasant but a poor historian. Last known BM this morning. Of note, ate breakfast in hospital with no emesis. Hospital Course Hospital Course Hospital Course: 83-year-old male recently discharged earlier on day of admission who presented to the ER for persistent weakness and postprandial emesis. Discussed case with the ER, request admission because of persistent weakness, inability for family to care for him at home, and potential need for further workup of emesis. Medicine agreed to admit for further management. Patient tolerating p.o. intake at this time. Urine was concerning for UTI, initiated on antibiotics. Has done well during admission. Working with therapy. Necessitating placement for rehab. Problems addressed as follows: Weakness Falling Postprandial emesis -Differential diagnosis includes gastroenteritis, hiatal hernia, GERD, rumination, constipation. Patient was started on Protonix and Reglan for nausea. He has done well. Tolerating Reglan 5 mg with meals with no further emesis. Modified barium swallow with small bowel follow-through was performed on 05/21 showing sliding hiatal hernia and some esophageal dysmotility. Speech recommended esophageal diet for decreased risk of emesis and improve motility. Patient is tolerated this without incident. PT and OT evaluated, would benefit from placement for rehab. Excepted by [facility]. Meeting criteria for discharge today. Patient's metoprolol was discontinued due to his normal blood pressures. No indication for treatment of blood pressure at this time. UTI: UA grossly abnormal. Initiated on ceftriaxone during admission. Transition to cefdinir to complete 7-day course of antibiotics. Urine culture pending at time of discharge. Hypothyroidism: Continue home levothyroxine 50 mcg daily GERD: Continue pantoprazole 40 mg nightly BPH: Continue tamsulosin 0.4 mg nightly Hyperlipidemia: Continue Lipitor 80 mg nightly Exam Data for Last 24 hours Vital signs and Labs for Last 24 Hours: Temp Pulse Resp BP Pulse Ox O2 Del Method 97.9 F 86 20 119/61 95 Room Air 05/22/23 04:00 05/22/23 04:00 05/22/23 04:00 05/22/23 04:00 05/22/23 04:00 05/22/23 06:18 Laboratory Results - last 24 hr 05/21/23 06:47: WBC 7.5, RBC 5.32, Hgb 15.1, Hct 44.2, MCV 83.1, MCH 28.3, MCHC 34.1, RDW 15.0, Plt Count 247, MPV 8.2, Neut % (Auto) 74.3, Lymph % (Auto) 16.8, [place] % (Auto) 7.3, Eos % (Auto) 1.4, Baso % (Auto) 0.2, Neut # (Auto) 5.6, Lymph # (Auto) 1.3, [place] # (Auto) 0.6, Eos # (Auto) 0.1, Baso # (Auto) 0.0, Sodium 128 L, Potassium 3.9 D, Chloride 100, Carbon Dioxide 23, Anion Gap 8.9, BUN 8 L, Creatinine 0.80, Estimated Creat Clear 53, Estimated GFR 92, Est GFR ( Amer) 112 D, Glucose 90 D, Calcium 9.2, Magnesium 1.4 L, Total Bilirubin 1.3, AST 42, ALT 39, Alkaline Phosphatase 108, Total Protein 6.1 L, Albumin 3.2 L D, Globulin 2.9, Albumin/Globulin Ratio 1.1 I & O for Last 24 hours: Intake & Output 05/19/23 05/20/23 05/21/23 05/22/23 23:59 23:59 23:59 23:59 Intake Total 815 / 815 Output Total 0 / 0 400 / 400 400 / 400 Balance 0 / 360 415 / 415 -400 / -400 Weight 64.41 kg 66.79 kg 67.086 kg Constitutional Constitutional: no acute distress, average body habitus and chronically ill appearing *Routine HEENT Exam Head: Present normocephalic Eye: Present EOMI and PERRL ENT: Present mucous membranes moist *Routine Neck Exam Neck: Present supple; Absent lymphadenopathy *Routine Respiratory Exam Respiratory: Present CTA bilaterally *Routine Cardiovascular Exam Cardiovascular: Present RRR *Routine Abdominal Exam Abdominal: Present soft and normoactive bowel sounds; Absent tenderness *Routine Extremities Exam Extremities: Absent cyanosis, clubbing or edema *Routine Skin Exam Skin: Present warm; Absent rash *Routine Neurological Exam Neurological: Present alert and moving all extremities; Absent altered mental status Results Data Completed and Pending Labs on day of discharge: Labs from last 24 hours 05/21/23 06:47 WBC 7.5 RBC 5.32 Hgb 15.1 Hct 44.2 MCV 83.1 MCH 28.3 MCHC 34.1 RDW 15.0 Plt Count 247 MPV 8.2 Neut % (Auto) 74.3 Lymph % (Auto) 16.8 [place] % (Auto) 7.3 Eos % (Auto) 1.4 Baso % (Auto) 0.2 Neut # (Auto) 5.6 Lymph # (Auto) 1.3 [place] # (Auto) 0.6 Eos # (Auto) 0.1 Baso # (Auto) 0.0 Sodium 128 L Potassium 3.9 D Chloride 100 Carbon Dioxide 23 Anion Gap 8.9 BUN 8 L Creatinine 0.80 Estimated Creat Clear 53 Estimated GFR 92 Est GFR ( Amer) 112 D Glucose 90 D Calcium 9.2 Magnesium 1.4 L Total Bilirubin 1.3 AST 42 ALT 39 Alkaline Phosphatase 108 Total Protein 6.1 L Albumin 3.2 L D Globulin 2.9 Albumin/Globulin Ratio 1.1 DS: Diagnosis Discharge Diagnosis (1) Generalized weakness: Status: Acute Code(s): R53.1 - Weakness (2) UTI (urinary tract infection): Status: Acute Code(s): N39.0 - Urinary tract infection, site not specified (3) Syncope: Status: Acute Code(s): R55 - Syncope and collapse (4) Memory loss: Status: Acute Code(s): R41.3 - Other amnesia (5) Hypothyroidism: Status: Acute Code(s): E03.9 - Hypothyroidism, unspecified Qualifiers: Hypothyroidism type: unspecified Qualified Code(s): E03.9 - Hypothyroidism, unspecified (6) Hypertension: Status: Acute Code(s): I10 - Essential (primary) hypertension Qualifiers: Hypertension type: primary hypertension Qualified Code(s): I10 - Essential (primary) hypertension (7) Postprandial vomiting: Status: Acute Code(s): R11.10 - Vomiting, unspecified (8) Falls: Status: Acute Code(s): W19.XXXA - Unspecified fall, initial encounter Qualifiers: Encounter type: initial encounter Qualified Code(s): W19.XXXA - Unspecified fall, initial encounter (9) GERD (gastroesophageal reflux disease): Status: Chronic Code(s): K21.9 - Gastro-esophageal reflux disease without esophagitis (10) BPH (benign prostatic hyperplasia): Status: Chronic Code(s): N40.0 - Benign prostatic hyperplasia without lower urinary tract symptoms (11) Severe protein-calorie malnutrition: Status: Acute Code(s): E43 - Unspecified severe protein-calorie malnutrition Meds Home Medications and Allergies Home Medications Medication Instructions Recorded Confirmed Type atorvastatin 80 mg tablet 80 mg PO HS Cholesterol 05/16/23 05/21/23 History fenofibrate nanocrystallized 145 145 mg PO DAILY Cholesterol 05/16/23 05/21/23 History mg tablet fluticasone propionate 50 1 spray intranasal DAILY Allergy 05/16/23 05/20/23 History mcg/actuation nasal Symptoms spray,suspension levothyroxine 50 mcg tablet 50 mcg PO DAILYDM THYROID 05/16/23 05/21/23 History loratadine 10 mg tablet 10 mg PO DAILY Allergy Symptoms 05/16/23 05/20/23 History cefdinir 300 mg capsule 300 mg PO BID 5 days #10 caps 05/22/23 Rx magnesium oxide 400 mg (241.3 mg 400 mg PO DAILY #0 tabs 05/22/23 Rx magnesium) tablet metoclopramide HCl 5 mg tablet 5 mg PO AC #0 tabs 05/22/23 Rx pantoprazole 40 mg tablet,delayed 40 mg PO HS #0 tabs 05/22/23 Rx release tamsulosin 0.4 mg capsule 0.4 mg PO HS #0 caps 05/22/23 Rx New Prescriptions to Start Prescriptions: Cesar Rios Allergies Allergy/AdvReac Type Severity Reaction Status Date / Time citric acid Allergy Verified 05/16/23 16:52 [From [facility]] sodium bicarbonate Allergy Verified 05/16/23 16:52 [From [facility]] Discharge Plan Disposition Patient Disposition: Xfer SNF Condition: Fair Discharge Order Discharge Orders: Discharge Order (Routine); Ordered 05/22/23 Ordered By: Cesar Klein Follow up Plan Prescriptions/Medication Reconciliation: New magnesium oxide 400 mg (241.3 mg magnesium) Tablet 400 mg PO DAILY Qty: 0 0RF tamsulosin 0.4 mg Capsule 0.4 mg PO HS Qty: 0 0RF pantoprazole 40 mg Tablet,Delayed Release (Dr/Ec) 40 mg PO HS Qty: 0 0RF metoclopramide HCl 5 mg Tablet 5 mg PO AC Qty: 0 0RF cefdinir 300 mg capsule 300 mg PO BID 5 Days Qty: 10 0RF Rx Instructions: start tonight 05/22/23 Continued atorvastatin 80 mg tablet 80 mg PO HS Patient Comments: TAKE 1 TABLET BY MOUTH ONCE DAILY levothyroxine 50 mcg tablet 50 mcg PO DAILYDM Patient Comments: TAKE 1 TABLET BY MOUTH ONCE DAILY fenofibrate nanocrystallized 145 mg tablet 145 mg PO DAILY Patient Comments: TAKE 1 TABLET BY MOUTH ONCE DAILY fluticasone propionate 50 mcg/actuation [place],Suspension 1 spray INTRANASAL DAILY Rx Instructions: administer into each nostril loratadine 10 mg Tablet 10 mg PO DAILY Discontinued rabeprazole [AcipHex] 20 MG tablet,delayed release (DR/EC) 20 mg PO DAILYP PRN (Reason: Acid Reflux) metoclopramide HCl 10 MG tablet 10 mg PO BID metoprolol succinate 50 mg tablet extended release 24 hr 50 mg PO DAILY Patient Comments: TAKE 1 TABLET BY MOUTH ONCE DAILY Problem Reconciliation Problems Reviewed?: Yes Patient Discharge Instructions ACTIVITY: Continue current activity and Ambulate as tolerated DIET: continue same diet Patient Instructions: DI for Muscle Weakness Providers Primary Care Provider: Provider,Referral Admit Provider: Cesar Klein Attending Provider: Cesar Klein
[2023-05-22 07:33] LABS: Basophils % 0.2 % (0.1-2.0); Eosinophils # 0.1 K/mm3 (0.0-0.4); Eosinophils % 1.1 % (0.1-12.0); Hematocrit 42.2 % (42.0-52.0); Hemoglobin 14.5 g/dL (14.1-18.0); Lymphocytes # 1.3 K/mm3 (0.7-4.5); Lymphocytes % 15.2 % (10-50); Mean Corpuscular HGB Conc 34.5 g/dL (31.8-35.4); Mean Corpuscular Hemoglobin 28.6 pg (27.0-31.2); Mean Corpuscular Volume 83.1 fl (80-94); Mean Platelet Volume 8.3 fl (7.4-10.4); Monocytes # 0.7 K/mm3 (0.1-1.0); Monocytes % 8.3 % (1.7-9.3); Neutrophils # 6.3 K/mm3 (1.8-7.8); Neutrophils % 75.3 % (37.0-80.0); Platelet Count 260 K/mm3 (142-424); Red Blood Count 5.08 M/mm3 (4.60-6.20); Red Cell Distribution Width 15.2 % (11.5-17.5); White Blood Count 8.3 K/mm3 (4.8-10.8)
[2023-05-22 07:45] LABS: Chloride 98 mmol/L (98-107); Potassium 3.7 mmoL/L (3.5-5.1); Sodium 131 mmol/L (136-145)
[2023-05-22 07:47] LABS: Alanine Aminotransferase 37 U/L (12-78); Aspartate Amino Transferase 45 U/L (17-59); Blood Urea Nitrogen 9 mg/dl (9-20); Creatinine Clearance Estimated 53 mL/min (50-200); Estimated Glomerular Filt Rate 81 ml/min (>60); GFR (African American) 98 ML/MIN (>60)
[2023-05-22 07:48] LABS: Albumin Level 3.3 g/dl (3.5-5.0); Albumin/Globulin Ratio 1.2 (1.1-1.8); Alkaline Phosphatase 107 U/L (38-126); Anion Gap 11.7 mEq/L (5-15); Calcium 8.8 mg/dl (8.4-10.2); Carbon Dioxide 25 mmol/L (22.0-30.0); Globulin 2.7 g/dL (1.3-3.2); Glucose 93 mg/dl (74-100); Magnesium 1.9 mg/dl (1.6-2.3)
[2023-05-22 07:54] VITALS: O2SAT 95
[2023-05-22 08:00] VITALS: BP 128/66; PULSE 85; RESP 18; TEMP 36.4; O2SAT 97
[2023-05-22] MEDS: MAGNESIUM OXIDE 400MG TABLET 400 MG PO (09:25)
--- NOTE | 2023-05-22 11:31 | PC.NURSE ---
report called to Rosalina at [facility]. [facility] called at this time. Attempted to call Minal, pts granddaughter, no answer to voicemail.
== END 2023-05-22 12:22 ==
LOC: ER 17:30 → 2ND 17:45
PROVIDERS: Student in an Organized Health Care Education/Training Program; Admitting Provider Internal Medicine Adolescent Medicine; Emergency Provider Emergency Medicine; Visit Provider Internal Medicine Adolescent Medicine
DX: R53.1 Weakness (principal); R55 Syncope and collapse; R41.3 Other amnesia; E03.9 Hypothyroidism, unspecified; I10 Essential (primary) hypertension; R11.10 Vomiting, unspecified; K21.9 Gastro-esophageal reflux disease without esophagitis; N40.0 Benign prostatic hyperplasia without lower urinary tract symptoms; N39.0 Urinary tract infection, site not specified; E43 Unspecified severe protein-calorie malnutrition; Z79.899 Other long term (current) drug therapy; Z68.23 Body mass index [BMI] 23.0-23.9, adult; E55.9 Vitamin D deficiency, unspecified; R29.6 Repeated falls; R06.9 Unspecified abnormalities of breathing
CPT/HCPCS: 36415; 71045; 74220; 80053; 81001; 83605; 83735; 83880; 84100; 84484; 85025; 87086; 92610; 93005; 93306; 97110; 97163; 97166; 97530; 97535; 99285; G0378; J0696; J3475

== ENCOUNTER 2023-06-01 04:54 | Emergency (ER) | payer MEDICARE, BC, SELFPAY ==
[2023-06-01] VITALS (7 sets, daily range): BP systolic 126–181; BP diastolic 75–98; PULSE 78–92; RESP 20–35; TEMP 36.6; O2SAT 99–100; BMI 22.7
--- NOTE | 2023-06-01 04:54 | XR_ITS ---
PROCEDURE INFORMATION: Exam: XR Pelvis Exam date and time: 06/01/2023 6:06 AM Age: 83 years old Clinical indication: Injury or trauma; Fall; Blunt trauma (contusions or hematomas); Bilateral; Pelvic region; Additional info: Falls TECHNIQUE: Imaging protocol: Radiologic exam of the pelvis. Views: 1 or 2 view. AP pelvis COMPARISON: CT ABDOMEN PELVIS W CON 06/01/2023 5:56 AM FINDINGS: Tubes, catheters and devices: Bones/joints: The osseous structures are demineralized. Limited evaluation of the left iliac wing and superior left SI joint due to overlying electronic device. No acute fracture or dislocation evident. Degenerative changes of the hips again noted. Soft tissues: Unremarkable. Organs: Contrast material within nondistended distal ureters bilaterally and within the incompletely distended urinary bladder. Vasculature: There are numerous benign phleboliths in the pelvis. Other findings: Spinal stimulator device again projects on the left. IMPRESSION: No acute fracture.
--- NOTE | 2023-06-01 04:54 | XR_ITS ---
PROCEDURE INFORMATION: Exam: XR Chest Exam date and time: 06/01/2023 6:06 AM Age: 83 years old Clinical indication: Injury or trauma; Fall; Blunt trauma (contusions or hematomas); Additional info: Falls TECHNIQUE: Imaging protocol: Radiologic exam of the chest. Views: 1 view. COMPARISON: Portable chest radiographs 05/20/2023 FINDINGS: Tubes, catheters and devices: Spinal stimulator again noted. Lungs: Similar bilateral pulmonary opacities. Pleural spaces: Stable moderate loculated right pleural effusion. Heart/Mediastinum: Unremarkable. No cardiomegaly. Bones/joints: Postoperative changes bilateral shoulders. IMPRESSION: No significant change.
--- NOTE | 2023-06-01 04:54 | CT_ITS ---
PROCEDURE INFORMATION: Exam: CT Head Without Contrast Exam date and time: 06/01/2023 5:45 AM Age: 83 years old Clinical indication: Other: Vasovagal episodes; Additional info: Tenesmus, vasovagal episodes, falls TECHNIQUE: Imaging protocol: Computed tomography of the head without contrast. Radiation optimization: All CT scans at this facility use at least one of these dose optimization techniques: automated exposure control; mA and/or kV adjustment per patient size (includes targeted exams where dose is matched to clinical indication); or iterative reconstruction. COMPARISON: CT HEAD/BRAIN WO CON 05/16/2023 12:46 PM FINDINGS: Brain: There is mild small vessel disease. There is diffuse cortical atrophy with disproportionate temporal lobe atrophy. There is no evidence of acute parenchymal hemorrhage, extra-axial collection, or acute infarction. There is no mass effect, midline shift, or downward herniation. Cerebral ventricles: No ventriculomegaly. Paranasal sinuses: Visualized sinuses are unremarkable. No fluid levels. Mastoid air cells: Visualized mastoid air cells are well aerated. Bones/joints: Unremarkable. No acute fracture. Soft tissues: Unremarkable. IMPRESSION: 1. No evidence of acute intracranial process. 2. Mild small vessel disease. 3. Disproportionate temporal lobe atrophy.
--- NOTE | 2023-06-01 04:54 | CT_ITS ---
PROCEDURE INFORMATION: Exam: CT Abdomen And Pelvis With Contrast Exam date and time: 06/01/2023 5:56 AM Age: 83 years old Clinical indication: Other: Vasovagal; Additional info: Tenesmus, vasovagal episodes TECHNIQUE: Imaging protocol: Computed tomography of the abdomen and pelvis with contrast. Radiation optimization: All CT scans at this facility use at least one of these dose optimization techniques: automated exposure control; mA and/or kV adjustment per patient size (includes targeted exams where dose is matched to clinical indication); or iterative reconstruction. Contrast material: ISOVUE; Contrast volume: 75 ml; Contrast route: IV; COMPARISON: CT ABDOMEN PELVIS W CON 05/16/2023 12:52 PM FINDINGS: Lungs: Some right lower lobe parenchymal visceral pleural calcifications are noted. Pleural spaces: Moderate complex appearing right-sided pleural effusion is unchanged from prior. Liver: Normal. No mass. Gallbladder and bile ducts: Prior cholecystectomy. Pancreas: Normal. No ductal dilation. Spleen: Normal. No splenomegaly. Adrenal glands: Normal. No mass. Kidneys and ureters: Normal. No hydronephrosis. Stomach and bowel: Sigmoid diverticulosis without diverticulitis. Appendix: No evidence of appendicitis. Intraperitoneal space: Unremarkable. No free air. No significant fluid collection. Vasculature: Infrarenal abdominal aortic aneurysm measuring 3.4 cm with a moderate amount of peripheral thrombus. The amount of thrombus is increased from the prior study but the aneurysm size itself is unchanged. Lymph nodes: Unremarkable. No enlarged lymph nodes. Urinary bladder: Unremarkable as visualized. Reproductive: Mild prostatomegaly. Bones/joints: Left lower back spinal infusion pump. Soft tissues: Unremarkable. IMPRESSION: 1. No acute process identified. 2. Complex appearing right-sided pleural effusion unchanged from prior studies of 12 07/15/2022. 3. Prior cholecystectomy. 4. Infrarenal abdominal aortic aneurysm with increased thrombus as compared to the prior exam.
--- NOTE | 2023-06-01 04:54 | CT_ITS ---
PROCEDURE INFORMATION: Exam: CT Cervical Spine Without Contrast Exam date and time: 06/01/2023 5:48 AM Age: 83 years old Clinical indication: Injury or trauma; Fall; Blunt trauma; Additional info: Tenesmus, vasovagal episodes, falls TECHNIQUE: Imaging protocol: Computed tomography of the cervical spine without contrast. Radiation optimization: All CT scans at this facility use at least one of these dose optimization techniques: automated exposure control; mA and/or kV adjustment per patient size (includes targeted exams where dose is matched to clinical indication); or iterative reconstruction. COMPARISON: CT CERVICAL SPINE WO CON 05/16/2023 12:48 PM FINDINGS: Bones/joints: No acute fracture. There is slight grade 1 anterolisthesis of C4 on C5 and C7 on T1. There is advanced degenerative disc disease at C5-C6 and C6-C7. The spinal canal appears patent. Lungs: COPD changes are noted. Soft tissues: Unremarkable. IMPRESSION: No acute findings.
--- NOTE | 2023-06-01 04:57 | ED_ITS ---
Discharge Plan Disposition Patient Disposition: [facility] Chief Complaint: Recheck/Abnormal Lab/Rx Prescriptions Prescriptions: New polyethylene glycol 3350 [Miralax] 17 gram/dose powder 17 g PO DAILY Qty: 510 0RF hydrocortisone acetate [Anusol-HC] 25 mg suppository 25 mg MN DAILY PRN (Reason: hemorrhoids) Qty: 12 0RF levofloxacin 750 mg tablet 750 mg PO DAILY 10 Days Qty: 10 0RF No Action atorvastatin 80 mg tablet 80 mg PO HS Patient Comments: TAKE 1 TABLET BY MOUTH ONCE DAILY levothyroxine 50 mcg tablet 50 mcg PO DAILYDM Patient Comments: TAKE 1 TABLET BY MOUTH ONCE DAILY fenofibrate nanocrystallized 145 mg tablet 145 mg PO DAILY Patient Comments: TAKE 1 TABLET BY MOUTH ONCE DAILY fluticasone propionate 50 mcg/actuation [place],Suspension 1 spray INTRANASAL DAILY Rx Instructions: administer into each nostril loratadine 10 mg Tablet 10 mg PO DAILY magnesium oxide 400 mg (241.3 mg magnesium) Tablet 400 mg PO DAILY Qty: 0 0RF pantoprazole 40 mg Tablet,Delayed Release (Dr/Ec) 40 mg PO HS Qty: 0 0RF metoclopramide HCl 5 mg Tablet 5 mg PO AC Qty: 0 0RF levofloxacin 500 mg Tablet 500 mg PO DAILY Referrals Follow up/Referrals: Provider,Referral, [Primary Care Provider] - See instructions Sandrita Monaco MD [Physician] - See instructions Kel George MD [Staff Physician] - See instructions Activity Restrictions/Add. Instructions Additional Instructions/Restrictions: You were evaluated in the emergency department today. At this time, it is felt that you have proctitis or inflammation of your rectum. You also have hemorrhoids. For this reason, we have prescribed you MiraLAX to keep your stools soft as well as suppositories to help with the inflammation and pain. I am also sending in Levaquin to treat your proctitis. Return to the emergency department for new or worsening symptoms. jail staff: Please have attending who takes care of this patient revie wed this note for coordination of care, especially if further investigation of infrarenal AAA is warranted.. Please call and schedule an appointment with Dr. Monaco for his pleural effusion and Dr. Staley for his hemorrhoid. Clinical Impressions Clinical Impression: Rectal tenesmus, Benign prostatic hyperplasia, Vasovagal episode, Hemorrhoids, Pleural effusion on right, Acute proctitis, AAA (abdominal aortic aneurysm) Discharge ED Provider: Nancy Pollock General Adult HPI <Nancy Pollock DO - Last Filed: 06/01/23 07:07> General Chief complaint: Recheck/Abnormal Lab/Rx Stated complaint: weakness Time Seen by Provider: 06/01/23 04:56 History of Present Illness HPI narrative: This patient is an 83-year-old male with a history of dementia, BPH, GERD, hypertension, hypothyroidism [facility] with concern for multiple episodes of vasovagal syncope, concern for persistent tenesmus, and several unwitnessed falls recently. History is obtained from the nursing facility and EMS, as the patient is only oriented to person. They report that given the patient's constant tenesmus, manual disimpaction was attempted without obvious firm stool in the rectal vault. He had 2 vasovagal episodes tonight, which seem to be associated with his tenesmus according to facility, so they sent him in for further evaluation. Patient is only oriented to person, but he denies any concerns or complaints at this time. He does state that he has to poop, which he has reportedly been saying for days. He is alert, conversational, and pleasantly confused. Medical record review, he was admitted here twice last month, once for acute hypokalemia, mental status change, and weakness and then again immediately after discharge for persistent weakness, mental status change, and a syncopal episode. At that time, he was due to be appropriate for placement in nursing facility for higher care than home. He had had persistent postprandial emesis at that time, which was controlled with Reglan. He had small bowel follow-through that showed a sliding hiatal hernia with esophageal dysmotility. Related Data Home Medications Medication Instructions Recorded Confirmed atorvastatin 80 mg tablet 80 mg PO HS Cholesterol 05/16/23 06/01/23 fenofibrate nanocrystallized 145 145 mg PO DAILY Cholesterol 05/16/23 06/01/23 mg tablet fluticasone propionate 50 1 spray intranasal DAILY Allergy 05/16/23 06/01/23 mcg/actuation nasal Symptoms spray,suspension levothyroxine 50 mcg tablet 50 mcg PO DAILYDM THYROID 05/16/23 06/01/23 loratadine 10 mg tablet 10 mg PO DAILY Allergy Symptoms 05/16/23 06/01/23 levofloxacin 500 mg tablet 500 mg PO DAILY 06/01/23 06/01/23 Previous Rx's Medication Instructions Recorded magnesium oxide 400 mg (241.3 mg 400 mg PO DAILY #0 tabs 05/22/23 magnesium) tablet metoclopramide HCl 5 mg tablet 5 mg PO AC #0 tabs 05/22/23 pantoprazole 40 mg tablet,delayed 40 mg PO HS #0 tabs 05/22/23 release hydrocortisone acetate 25 mg 25 mg MN DAILY PRN hemorrhoids #12 06/01/23 rectal suppository (Anusol-HC) ea levofloxacin 750 mg tablet 750 mg PO DAILY 10 days #10 tabs 06/01/23 polyethylene glycol 3350 17 17 g PO DAILY #510 grams 06/01/23 gram/dose oral powder (Miralax) Allergies Allergy/AdvReac Type Severity Reaction Status Date / Time citric acid Allergy Verified 05/16/23 16:52 [From [place]] sodium bicarbonate Allergy Verified 05/16/23 16:52 [From [place]] [facility] <Nancy Pollock DO - Last Filed: 06/01/23 07:07> [facility] Disclaimer: The information contained in this section may have been updated after the patient was seen, as this information can be updated by other users. Medical History BPH (benign prostatic hyperplasia) Colon polyps Diverticulosis GERD (gastroesophageal reflux disease) H. pylori infection History of frequent headaches Hyperlipemia Hypertension Hypothyroidism Rotator cuff arthropathy of both shoulders Vitamin D deficiency Family History Other No significant family history Social History Smoking Status: Never smoker second hand exposure: No alcohol intake: former substance use type: denies use current occupational status: retired Travel in the last 8 weeks: None household members: spouse housing: house current occupational exposures/hazards: No caffeine: Yes <Nancy Pollock DO - Last Filed: 06/01/23 07:07> ROS Obtained: Yes All systems reviewed & no additional complaints except as documented Physical Exam <Nancy Pollock DO - Last Filed: 06/01/23 07:07> General General appearance: alert and in no apparent distress Head Head exam: atraumatic and normocephalic Eye Eye exam: Present normal appearance, PERRL and EOMI ENT ENT exam: Present normal exam, normal oropharynx, mucous membranes moist and normal external ear exam Neck Neck exam: Present normal inspection, full ROM and trachea midline; Absent tenderness Chest Chest inspection: Present normal inspection and symmetric chest wall rise; Absent tenderness Respiratory Respiratory exam: Present normal lung sounds bilaterally; Absent respiratory distress, wheezes, stridor or accessory muscle use Cardiovascular Cardiovascular exam: Present regular rate and normal rhythm Abdominal Exam Abdominal exam: Present soft; Absent distention, tenderness or guarding Extremities Exam Extremities exam: Present normal inspection, full ROM and normal capillary refill; Absent tenderness or edema Back Exam Back exam: Present normal inspection and full ROM; Absent tenderness Neurological Exam Neurological exam: Present alert, CN II-XII intact and normal gait; Absent oriented X3 or motor sensory deficit Psychiatric Psychiatric exam: Present normal affect and normal mood Skin Skin exam: Present warm and dry Medical Decision Making <Nancy Pollock, DO - Last Filed: 06/01/23 07:07> Medical Records Medical records reviewed: Yes I reviewed the patient's medical records. [place] Inquiry Pt receiving controlled substance: No Vital Signs: 06/01/23 04:54 06/01/23 05:15 06/01/23 05:30 Temperature 97.8 F Temperature Source Oral Pulse Rate 92 H 86 Pulse Rate [Left Radial] 89 Respiratory Rate 20 35 H 32 H Blood Pressure 126/75 Blood Pressure [Right Arm] 132/86 Blood Pressure Mean [Right Arm] 101 02 Sat by Pulse Oximetry 100 99 99 Oxygen Delivery Method Room Air 06/01/23 06:31 06/01/23 07:00 Temperature Temperature Source Pulse Rate 78 78 Pulse Rate [Left Radial] Respiratory Rate 33 H 33 H Blood Pressure 158/93 H 181/98 H Blood Pressure [Right Arm] Blood Pressure Mean [Right Arm] 02 Sat by Pulse Oximetry 99 99 Oxygen Delivery Method Room Air Room Air Lab Data Lab results reviewed: Yes I reviewed the patient's lab results. Lab Results 06/01/23 04:53: WBC 9.8, RBC 5.31, Hgb 15.3, Hct 45.2, MCV 85.1, MCH 28.8, MCHC 33.8, RDW 15.9, Plt Count 305, MPV 7.9, Neut % (Auto) 78.0, Lymph % (Auto) 15.0, Trigg % (Auto) 6.2, Eos % (Auto) 0.5, Baso % (Auto) 0.4, Neut # (Auto) 7.7, Lymph # (Auto) 1.5, Trigg # (Auto) 0.6, Eos # (Auto) 0.1, Baso # (Auto) 0.0, Sodium 134 L, Potassium 4.4, Chloride 101, Carbon Dioxide 22, Anion Gap 15.4 H, BUN 13, Creatinine 1.10, Estimated Creat Clear 47, Estimated GFR 64, Est GFR ( Amer) 77, Glucose 108 H, Calcium 9.6, Total Bilirubin 1.4 H, AST 45, ALT 49, Alk suzanne Phosphatase 93, Troponin I < 0.01, Total Protein 6.6, Albumin 3.5, Globulin 3.1, Albumin/Globulin Ratio 1.1 06/01/23 05:16: Urine Color Yellow, Urine Appearance Clear, Urine pH 8.5, Ur Specific [place] 1.020, Urine Protein Trace, Urine Glucose (UA) Negative, Urine Ketones Trace, Urine Blood 1+, Urine Nitrate Negative, Urine Bilirubin 1+ A, Urine Urobilinogen 0.2, Ur Leukocyte Esterase Negative, Urine RBC 5-10, Urine WBC 5-10, Ur Squamous Epith Cells 3-5, Urine Bacteria 1+ 06/01/23 04:53 06/01/23 04:53 Orders (Tests/Meds): ED MEDICATIONS Generic Name Dose Route Start Last Admin Trade Name Freq PRN Reason Stop Dose Admin Sodium Chloride 10 ml 06/01/23 06:20 06/01/23 06:21 Sodium Chloride 0.9% 10ml Syr (Rad Only) IV 07/01/23 06:19 10 ml NEEDED PRN Administration Maintain IV Site Discontinued Medications Generic Name Dose Route Start Last Admin Trade Name Freq PRN Reason Stop Dose Admin Lactated Ringer's 1,000 mls @ 999 mls/hr 06/01/23 06:22 06/01/23 06:28 Lactated Ringer's 1000 Ml Bag IV 06/01/23 07:22 999 mls/hr .Q1H1M ONE Administration Iopamidol 75 ml 06/01/23 06:20 06/01/23 06:21 Iopamidol-370 (76%);100ml Bottle IV 06/01/23 06:21 75 ml ONCE ONE Administration Sodium Chloride 50 ml 06/01/23 06:20 06/01/23 06:21 0.9 % Sodium Chloride 50 Ml Vial IV 06/01/23 06:21 50 ml ONCE ONE Administration ORDERS Category Date Time Status CT abdomen pelvis w con Stat Cat Scan 06/01/23 04:[address] angio chest PE protocol Stat Cat Scan 06/01/23 05:[address] cervical spine wo con Stat Cat Scan 06/01/23 04:[address] head/brain wo con Stat Cat Scan 06/01/23 04:54 Completed XR chest portable Stat Exams 06/01/23 04:54 Taken XR pelvis 1-2V Stat Exams 06/01/23 04:54 Taken Complete Blood Count Auto Diff Stat Lab 06/01/23 04:53 Completed Comprehensive Metabolic Panel Stat Lab 06/01/23 04:53 Completed Troponin I Q3H Lab 06/01/23 08:00 Ordered Troponin I Q3H Lab 06/01/23 11:00 Ordered Troponin I Stat Lab 06/01/23 04:53 Completed Urinalysis and Microscopic Stat Lab 06/01/23 05:16 Completed ECG Data Tracing #1: I reviewed this ECG and interpreted as documented below: Sinus rhythm with a ventricular rate of [address] changes concerning for ischemia. No significant changes noted from prior EKG. Some motion artifact noted. ECG initial impression date: 06/01/23 ECG initial impression time: 05:12 Medical Decision Narrative: In summary, this patient is a 83-year-old male presenting to the Emergency Department for evaluation of vasovagal syncope, unwitnessed falls, and tenesmus. Differential diagnoses considered include but are not limited to cardiac dysfunction, proctitis, constipation, bowel obstruction, fecal impaction, traumatic injury. Ruling out the most morbid conditions drove assessment. It should be noted patient's history includes dementia, hypertension, hypot hyroidism, hyperlipidemia, and BPH which may or may not be at goal therapy. This complicates all aspects of care by increasing patient's risk for morbidity. I reviewed patient's past medical records and noted his recent admission and subsequent discharge to nursing facility as per HPI. On exam, the patient is pleasantly confused but is nontoxic-appearing with reassuring exam. He complains of constant need to poop, concerning for tenesmus. He does have hemorrhoids on exam, which could be causing the symptoms. No large thrombosed hemorrhoids that would require immediate intervention. He also has significant tenderness to palpation, and I feel he could have proctitis. For this, I feel he would benefit from prescriptions for MiraLAX, Anusol suppositories, and Levaquin. Vitals are reassuring on cardiac telemetry. Workup included lab evaluation including CBC, CMP, troponin, and urinalysis as well as CT scan of the head, CT C-spine, chest x-ray, pelvic x- ray, and CT abdomen and pelvis with IV contrast. CT reads are pending at this time. At this time, patient care signed out to the oncoming provider, Dr. Phan. <Kris Phan MD - Last Filed: 06/01/23 08:02> Vital Signs: 06/01/23 04:54 06/01/23 05:15 06/01/23 05:30 Temperature 97.8 F Temperature Source Oral Pulse Rate 92 H 86 Pulse Rate [Left Radial] 89 Respiratory Rate 20 35 H 32 H Blood Pressure 126/75 Blood Pressure [Right Arm] 132/86 Blood Pressure Mean [Right Arm] 101 02 Sat by Pulse Oximetry 100 99 99 Oxygen Delivery Method Room Air 06/01/23 06:31 06/01/23 07:00 Temperature Temperature Source Pulse Rate 78 78 Pulse Rate [Left Radial] Respiratory Rate 33 H 33 H Blood Pressure 158/93 H 181/98 H Blood Pressure [Right Arm] Blood Pressure Mean [Right Arm] 02 Sat by Pulse Oximetry 99 99 Oxygen Delivery Method Room Air Room Air Lab Data Lab Results 06/01/23 04:53: WBC 9.8, RBC 5.31, Hgb 15.3, Hct 45.2, MCV 85.1, MCH 28.8, MCHC 33.8, RDW 15.9, Plt Count 305, MPV 7.9, Neut % (Auto) 78.0, Lymph % (Auto) 15.0, Trigg % (Auto) 6.2, Eos % (Auto) 0.5, Baso % (Auto) 0.4, Neut # (Auto) 7.7, Lymph # (Auto) 1.5, [place] # (Auto) 0.6, Eos # (Auto) 0.1, Baso # (Auto) 0.0, Sodium 134 L, Potassium 4.4, Chloride 101, Carbon Dioxide 22, Anion Gap 15.4 H, BUN 13, Creatinine 1.10, Estimated Creat Clear 47, Estimated GFR 64, Est GFR ( Amer) 77, Glucose 108 H, Calcium 9.6, Total Bilirubin 1.4 H, AST 45, ALT 49, Alkaline Phosphatase 93, Troponin I < 0.01, Total Protein 6.6, Albumin 3.5, Globulin 3.1, Albumin/Globulin Ratio 1.1 06/01/23 05:16: Urine Color Yellow, Urine Appearance Clear, Urine pH 8.5, Ur Specific [place] 1.020, Urine Protein Trace, Urine Glucose (UA) Negative, Urine Ketones Trace, Urine Blood 1+, Urine Nitrate Negative, Urine Bilirubin 1+ A, Urine Urobilinogen 0.2, Ur Leukocyte Esterase Negative, Urine RBC 5-10, Urine WBC 5-10, Ur Squamous Epith Cells 3-5, Urine Bacteria 1+ Orders (Tests/Meds): ED MEDICATIONS Generic Name Dose Route Start Last Admin Trade Name Freq PRN Reason Stop Dose Admin Sodium Chloride 10 ml 06/01/23 06:20 06/01/23 06:21 Sodium Chloride 0.9% 10ml Syr (Rad Only) IV 07/01/23 06:19 10 ml NEEDED PRN Administration Maintain IV Site Discontinued Medications Generic Name Dose Route Start Last Admin Trade Name Freq PRN Reason Stop Dose Admin Lactated Ringer's 1,000 mls @ 999 mls/hr 06/01/23 06:22 06/01/23 06:28 Lactated Ringer's 1000 Ml Bag IV 06/01/23 07:22 999 mls/hr .Q1H1M ONE Administration Iopamidol 75 ml 06/01/23 06:20 06/01/23 06:21 Iopamidol-370 (76%);100ml Bottle IV 06/01/23 06:21 75 ml ONCE ONE Administration Sodium Chloride 50 ml 06/01/23 06:20 06/01/23 06:21 0.9 % Sodium Chloride 50 Ml Vial IV 06/01/23 06:21 50 ml ONCE ONE Administration ORDERS Category Date Time Status CT abdomen pelvis w con Stat Cat Scan 06/01/23 04:[address] angio chest PE protocol Stat Cat Scan 06/01/23 05:[address] cervical spine wo con Stat Cat Scan 06/01/23 04:[address] head/brain wo con Stat Cat Scan 06/01/23 04:54 Completed XR chest portable Stat Exams 06/01/23 04:54 Taken XR pelvis 1-2V Stat Exams 06/01/23 04:54 Taken Complete Blood Count Auto Diff Stat Lab 06/01/23 04:53 Completed Comprehensive Metabolic Panel Stat Lab 06/01/23 04:53 Completed Troponin I Q3H Lab 06/01/23 08:00 Ordered Troponin I Q3H Lab 06/01/23 11:00 Ordered Troponin I Stat Lab 06/01/23 04:53 Completed Urinalysis and Microscopic Stat Lab 06/01/23 05:16 Completed Medical Decision Narrative: In summary, this patient is a 83-year-old male presenting to the Emergency [facility] for evaluation of vasovagal syncope, unwitnessed falls, and tenesmus. Differential diagnoses considered include but are not limited to cardiac dysfunction, proctitis, constipation, bowel obstruction, fecal impaction, traumatic injury. Ruling out the most morbid conditions drove assessment. It should be noted patient's history includes dementia, hypertension, hypothyroidism, hyperlipidemia, and BPH which may or may not be at goal therapy. This complicates all aspects of care by increasing patient's risk for morbidity. I reviewed patient's past medical records and noted his recent admission and subsequent discharge to nursing facility as per HPI. On exam, the patient is pleasantly confused but is nontoxic-appearing with reassuring exam. He complains of constant need to poop, concerning for tenesmus. He does have hemorrhoids on exam, which could be causing the symptoms. No large thrombosed hemorrhoids that would require immediate intervention. He also has significant tenderness to palpation, and I feel he could have proctitis. For this, I feel he would benefit from prescriptions for MiraLAX, Anusol suppositories, and Levaquin. Vitals are reassuring on cardiac telemetry. Workup included lab evaluation including CBC, CMP, troponin, and urinalysis as well as CT scan of the head, CT C-spine, chest x-ray, pelvic x- ray, and CT abdomen and pelvis with IV contrast. CT reads are pending at this time. At this time, patient care signed out to the oncoming provider, Dr. Phan. Kris Phan: Upon assumption of care patient was hemodynamically stable, tachypneic. Hematologic labs reviewed by me and are nonactionable, initial troponin below detectable limit. Abdomen and pelvis CT shows persistent infrarenal AAA with increased thrombus from prior exam, no acute processes identified. CT cervical spine no acute pathology. CT head no acute process, disproportionate temporal lobe atrophy. CTA chest shows no pulmonary evidence of pulmonary embolism and stable loculated moderate right pleural effusion with hyperdense consolidation in the right lung. Hyperdense consolidation may be from previous swallow study given history. Although patient has tachypnea, he is not in respiratory distress, saturating 99% on room air. Given this it was felt the patient is appropriate for outpatient management at this time and will be referred to general surgery for his hemorrhoid, pulmonary clinic for complex right pleural effusion. Follow-up for infrarenal AAA less than 5 cm will be coordinated by PCP. Critical Care <Nancy Pollock, DO - Last Filed: 06/01/23 07:07> Critical Care Time Critical Care Time: No
[2023-06-01 05:01] LABS: Basophils % 0.4 % (0.1-2.0); Eosinophils # 0.1 K/mm3 (0.0-0.4); Eosinophils % 0.5 % (0.1-12.0); Hematocrit 45.2 % (42.0-52.0); Hemoglobin 15.3 g/dL (14.1-18.0); Lymphocytes # 1.5 K/mm3 (0.7-4.5); Mean Corpuscular HGB Conc 33.8 g/dL (31.8-35.4); Mean Corpuscular Hemoglobin 28.8 pg (27.0-31.2); Mean Corpuscular Volume 85.1 fl (80-94); Mean Platelet Volume 7.9 fl (7.4-10.4); Monocytes # 0.6 K/mm3 (0.1-1.0); Monocytes % 6.2 % (1.7-9.3); Neutrophils # 7.7 K/mm3 (1.8-7.8); Platelet Count 305 K/mm3 (142-424); Red Blood Count 5.31 M/mm3 (4.60-6.20); Red Cell Distribution Width 15.9 % (11.5-17.5); White Blood Count 9.8 K/mm3 (4.8-10.8)
[2023-06-01 05:06] LABS: Chloride 101 mmol/L (98-107); Potassium 4.4 mmoL/L (3.5-5.1); Sodium 134 mmol/L (136-145)
[2023-06-01 05:09] LABS: Alanine Aminotransferase 49 U/L (12-78); Albumin Level 3.5 g/dl (3.5-5.0); Albumin/Globulin Ratio 1.1 (1.1-1.8); Alkaline Phosphatase 93 U/L (38-126); Anion Gap 15.4 mEq/L (5-15); Aspartate Amino Transferase 45 U/L (17-59); Bilirubin,Total 1.4 mg/dl (0.2-1.3); Blood Urea Nitrogen 13 mg/dl (9-20); Carbon Dioxide 22 mmol/L (22.0-30.0); Creatinine Clearance Estimated 47 mL/min (50-200); Estimated Glomerular Filt Rate 64 ml/min (>60); GFR (African American) 77 ML/MIN (>60); Globulin 3.1 g/dL (1.3-3.2); Total Protein,Serum 6.6 g/dl (6.3-8.2)
[2023-06-01 05:10] LABS: Calcium 9.6 mg/dl (8.4-10.2); Glucose 108 mg/dl (74-100)
--- NOTE | 2023-06-01 05:11 | ECG_ITS ---
APPROVED REPORT Exam: Resting ECG HR:84 bpm ECG Measurements Heart Rate 84 AXES QRSd 82 QRS -27 QT 394 T 7 QTc 435 Conclusion SUPRAVENTRICULAR RHYTHM, but artifact limits rhythm interpretation BORDERLINE LEFT AXIS DEVIATION [QRS AXIS < -20] MINIMAL VOLTAGE CRITERIA FOR LVH, CONSIDER NORMAL VARIANT [ ABNORMAL RHYTHM ECG UNCONFIRMED REPORT Electronically signed by : Selvin Quinteros MD 06/02/2023 17:50:29
[2023-06-01 05:20] LABS: Microscopic, Urine URINE MICROSCOPIC (MICROSCOPIC)
[2023-06-01 05:21] LABS: Troponin I < 0.01 ng/ml (0.00-0.034)
[2023-06-01 05:21] LABS: Appearance,Urine CLEAR (Clear); Blood, Urine 1+ (Negative); Color,Urine YELLOW (Yellow); Glucose,Urine (UA) Negative (Negative); Ketones,Urine TRACE (Negative); Leukocyte Esterase,Urine Negative (Negative); Nitrate,Urine Negative (Negative); PH,Urine 8.5 (5.0-8.5); Protein,Urine TRACE (Negative); Urobilinogen,Urine 0.2 EU/dl (0.2)
[2023-06-01 05:26] LABS: Bilirubin,Urine 1+ (Negative)
[2023-06-01 05:33] LABS: Bacteria,Urine 1+ /lpf
--- NOTE | 2023-06-01 05:34 | CT_ITS ---
PROCEDURE INFORMATION: Exam: CTA Chest With Contrast Exam date and time: 06/01/2023 5:56 AM Age: 83 years old Clinical indication: Other: Syncope TECHNIQUE: Imaging protocol: Computed tomographic angiography of the chest with contrast. Exam focused on the arteries. 3D rendering (Not supervised by radiologist): MIP and/or 3D reconstructed images were created by the technologist. Radiation optimization: All CT scans at this facility use at least one of these dose optimization techniques: automated exposure control; mA and/or kV adjustment per patient size (includes targeted exams where dose is matched to clinical indication); or iterative reconstruction. Contrast material: ISOVUE; Contrast volume: 75 ml; Contrast route: INTRAVENOUS (IV); COMPARISON: CT CHEST W CON 05/16/2023 12:52 PM FINDINGS: Tubes, catheters and devices: Spinal stimulator is present. Pulmonary arteries: Normal. No pulmonary emboli. Aorta: Mild atherosclerotic changes of the aorta and branch vessels. Lungs: Fibrotic changes again noted bilaterally. Large bulla again noted at the left medial lung base. Patchy consolidation in the right lung with increased density, unchanged from the prior exam. Punctate calcified granuloma right lung. Pleural spaces: Loculated moderate right pleural effusion is unchanged. Heart: Unremarkable. No cardiomegaly. No pericardial effusion. Coronary arteries: Coronary artery calcifications are present. Lymph nodes: Prominent right hilar nodes may be reactive, stable since prior study. Gallbladder and bile ducts: There has been a cholecystectomy. Stomach and bowel: The stomach is decompressed. Bones/joints: The osseous structures are demineralized. Postoperative changes bilateral shoulders. Degenerative changes of the spine. Soft tissues: Unremarkable. IMPRESSION: 1. No pulmonary emboli evident. 2. No significant change in loculated moderate right pleural effusion with similar hyperdense consolidation right lung.
--- NOTE | 2023-06-01 06:17 | PC.NURSE ---
in room talking with patient at this time.
[2023-06-01] MEDS: IOPAMIDOL-370 (76%);100ML BOTTLE 75 ML IV (06:21)
[2023-06-01] MEDS: 0.9 % SODIUM CHLORIDE 50 ML VIAL IV (06:21)
[2023-06-01] MEDS: SODIUM CHLORIDE 0.9% 10ML SYR (RAD ONLY) 10 ML IV (06:21)
[2023-06-01] MEDS: LACTATED RINGERS 1000ML 1,000 ML 999 ML IV (06:28)
--- NOTE | 2023-06-01 07:39 | PC.NURSE ---
Patient at end of the bed attempting to get up. IV out. Patient placed back in bed and changed. MD notified of IV being displaced.
--- NOTE | 2023-06-01 08:07 | PC.NURSE ---
called EMS for transport back to [place]
--- NOTE | 2023-06-01 08:37 | PC.NURSE ---
[facility]
== END 2023-06-01 08:42 ==
PROVIDERS: Emergency Medicine; Emergency Provider Emergency Medicine
DX: R55 Syncope and collapse (principal); J90 Pleural effusion, not elsewhere classified; K62.89 Other specified diseases of anus and rectum; K64.9 Unspecified hemorrhoids; N40.0 Benign prostatic hyperplasia without lower urinary tract symptoms; F03.90 Unspecified dementia, unspecified severity, without behavioral disturbance, psychotic disturbance, mood disturbance, and anxiety; I10 Essential (primary) hypertension; E03.9 Hypothyroidism, unspecified; R29.6 Repeated falls; I71.43 Infrarenal abdominal aortic aneurysm, without rupture
CPT/HCPCS: 70450; 71045; 71275; 72125; 72170; 74177; 80053; 81001; 84484; 85025; 93005; 96360; 99285; Q9967